=== PATIENT | female | born 1960 | race Caucasian/White ===

== ENCOUNTER 2021-04-15 00:43 | Inpatient (IN) | payer MEDICAID, SELFPAY ==
[2021-04-15] VITALS (12 sets, daily range): BP systolic 109–136; BP diastolic 74–85; PULSE 72–98; RESP 16–30; TEMP 36.6–36.9; O2SAT 80–97; BMI 25.5; BMI 25.2
--- NOTE | 2021-04-15 01:26 | RAD_ITS ---
STUDY: X-RAY CHEST REASON FOR EXAM: Female, 60 years old. sob TECHNIQUE: Single AP portable view of the chest. COMPARISON: None. FINDINGS: Ill-defined subpleural groundglass opacities are seen more prominent in the lung bases , may represent atypical pneumonia or viral pneumonia (COVID-19 ?). There is no demonstrated pleural abnormality. Normal size heart. Normal mediastinum and alison. Normal visualized pulmonary arteries. Normal visualized aortic arch and descending thoracic aorta. Normal visualized thoracic spine. Normal visualized ribs, clavicles, and shoulders. There is no demonstrated abnormality of the visualized soft tissue structures of the upper abdomen. RAD/Chest 1 View (Portable) IMPRESSION: Ill-defined subpleural groundglass opacities are seen more prominent in the lung bases , may represent atypical pneumonia or viral pneumonia (COVID-19 ?). Electronically Signed: Carolee Shaw MD at 2:38 EST Tel , Service support ,
--- NOTE | 2021-04-15 01:27 | EKG12_ITS ---
Test Reason : SOB Blood Pressure : / mmHG Vent. Rate : 090 BPM Atrial Rate : 090 BPM P-R Int : 122 ms QRS Dur : 076 ms QT Int : 354 ms P-R-T Axes : 028 -31 008 degrees QTc Int : 433 ms Normal sinus rhythm Left axis deviation Inferior infarct , age undetermined Anterolateral infarct , age undetermined Abnormal ECG Confirmed by STAR NGUYỄN, EMILIANO ([id number]), editor managing newspaper GREGORIA LAMBERT ([id number]) on 04/15/2021 11:44:45 AM Referred By: HANNAH Confirmed By:EMILIANO GRAVES MD
--- NOTE | 2021-04-15 01:28 | EDS_ITS ---
HPI History of Present Illness Chief Complaint: Shortness of Breath Informant: patient Onset/Context/Timing Onset: Weeks (2) Timing: Intermittent Quality: Positive for Dyspnea on exertion Current Severity: Moderate Maximum Severity: Severe Worsened by: Exertion and Coughing Relieved by: Oxygen Associated Symptoms cough Chest Pain: Positive for Continuous, Aching (substernal w/o radiation) and Pleuritic Narrative Narrative: Patient states she has been having shortness of breath off and on for 2 weeks, was much worse tonight, even at rest when trying to just get out of a chair she was unable, causing her to have incontinent stool that was diarrhea although she has not been having diarrhea prior. Daughter states she was feeling dizzy yesterday to and having some headaches off and on, and wonders if these may be side effects of the Metformin she recently increased the dose. Patient does not have a history of known heart or lung disease, she was 80% on room air placed on oxygen by EMS which is helping some now and she no longer is in respiratory distress. When asked how long she has been coughing, they state she has had a cough off and on for maybe 1 or 2 weeks she is not exactly sure but it was much worse today. Denies any fevers or chills or myalgias. Unvaccinated against Covid, no known sick contacts. [facility] Medical History Diabetes HTN (hypertension) Home Medications albuterol sulfate 1 puff INHALATION Q6H PRN 04/15/21 [History Last Taken Unknown] cholecalciferol (vitamin D3) [Vitamin D3] 25 mcg PO DAILY 04/15/21 [History Last Taken Unknown] dulaglutide [Trulicity] 3 mg SUBCUT WE 04/15/21 [History Last Taken Unknown] fluticasone propionate 1 spray INTRANASAL DAILY 04/15/21 [History Last Taken Unknown] insulin degludec [Tresiba U-100 Insulin] 54 unit SUBCUT DAILY 04/15/21 [History Last Taken Unknown] loratadine 10 mg PO DAILY 04/15/21 [History Last Taken Unknown] losartan 25 mg PO DAILY 04/15/21 [History Last Taken Unknown] metformin 1,000 mg PO BID 04/15/21 [History Last Taken Unknown] mometasone-formoterol [Dulera] 2 puff INHALATION BID 04/15/21 [History Last Taken Unknown] montelukast 10 mg PO QHS 04/15/21 [History Last Taken Unknown] simvastatin 20 mg PO QHS 04/15/21 [History Last Taken Unknown] Allergy/AdvReac Type Severity Reaction Status Date / Time No Known Allergies Allergy Verified 04/15/21 00:45 Surgical History (Updated 04/15/21 @ 00:59 by Shavon España) History of hysterectomy Social History Smoking Status: Former smoker ROS ROS ED Constitutional Constitutional ED: Reports malaise; Denies chills or fever(s) Eyes Eyes: Denies change in vision or diplopia ENT ENT ED: Denies rhinorrhea or sore throat Cardiovascular Cardiovascular: Reports chest pain; Denies palpitations or pedal edema Respiratory/Chest Respiratory/Chest: Reports cough, dyspnea and dyspnea on exertion Gastrointestinal Gastrointestinal: Reports diarrhea; Denies abdominal pain, nausea or vomiting Genitourinary Genitourinary ED: Denies dysuria or hematuria Musculoskeletal Musculoskeletal: Denies back pain or neck pain Integumentary Denies abscess or rash Neurologic Neurologic: Reports headache(s); Denies paresthesias or weakness Psychiatric Psychiatric: Denies anxiety or suicidal thoughts EXAM Physical Exam Const Vital Signs: 04/15/21 00:48 04/15/21 00:51 04/15/21 00:52 Temperature 98.3 F Temperature Source Oral Pulse Rate 88 Respiratory Rate 24 H Respiratory Effort Short of Breath Labored Respiratory Pattern Tachypnea Blood Pressure 112/80 Blood Pressure Mean 90 Pulse Ox 80 93 Oxygen Delivery Method Room Air Nasal Cannula Oxygen Flow Rate (L/min) 4 04/15/21 01:51 04/15/21 03:27 04/15/21 03:42 Temperature 98.3 F Temperature Source Oral Pulse Rate 88 89 Respiratory Rate 30 H 24 H 24 H Respiratory Effort Respiratory Pattern Blood Pressure 109/80 Blood Pressure Mean 89 Pulse Ox 94 88 81 Oxygen Delivery Method Nasal Cannula Nasal Cannula Nasal Cannula Oxygen Flow Rate (L/min) 4 2 2 Positive well nourished and well developed General Appearance ED: well developed and NAD HEENT Reports moist mucous membranes normocephalic and atraumatic Eyes PERRL and EOMs intact bilaterally Neck full ROM, no lymphadenopathy, supple, no meningeal signs and no JVD Resp no retractions, no use of accessory muscles and clear to auscultation bilaterally Resp Narrative: Tachypneic with clear lungs Cardio regular rate, regular rhythm and no murmurs GI non-tender and non-distended Auscultation: normoactive bowel sounds Palpation: soft Back/Spine no CVA tenderness General Back: other FROM Extremity normal to inspection General Extremety ED: Negative for edema, pulses abnormal or tenderness General Extremity: Negative for edema or pulses abnormal Neuro oriented x3, CN's II-XII intact bilaterally and no sensory deficits noted Sensorium / Orientation: awake and alert Motor Exam: strength 5/5 throughout Skin no rashes or lesions noted and no wounds MDM MDM MDM Narrative Medical decision making narrative: Patient's rapid Covid test returns positive. Her chest x-ray shows evidence of Covid pneumonitis, likely responsible at least in part for her hypoxemia. Her D-dimer returned elevated so she underwent CT angiography of the chest to rule out pulmonary embolus, this was negative for PE. She did have some dehydration/prerenal azotemia, was given some IV fluids in addition to Decadron 6 mg. Monoclonal antibody infusion since she presents for diagnosis when she is hypoxemic, and has had symptoms beyond 10 days anyhow. Here she required 4 L nasal cannula to keep her oxygen saturations in the 90s. She consistently was 90-92% while resting on 4 L. I had nurses attempt to ambulate her, she basically was able to get up to the side of the bed before even exerting herself on her feet, and she dropped her oxygen saturations to 85% before requiring more oxygen in order to bring her back up into the 90s. Given this, she is requiring too much oxygen to be discharged home and will need to be admitted for further care. Lab Data Attestation: I reviewed the patient's lab results. Labs: Laboratory Results - last 24 hr 04/15/21 04/15/21 04/15/21 01:35 01:35 01:35 WBC 5.4 RBC 4.88 Hgb 13.0 Hct 39.5 MCV 80.9 L MCH 26.6 L MCHC 32.9 RDW Std Deviation 39.0 RDW Coeff of Carlos Enrique 13.2 Plt Count 159 MPV 10.8 Immature Gran % (Auto) 1.300 H Neut % (Auto) 85.1 H Lymph % (Auto) 10.2 L [place] % (Auto) 3.0 Eos % (Auto) 0.0 Baso % (Auto) 0.4 Absolute Neuts (auto) 4.6 Absolute Lymphs (auto) 0.55 L Nucleated RBC % 0 Differential Comment SCANNED D-Dimer Quant (PE/DVT) 1.71 H* Sodium 134 L Potassium 4.0 Chloride 97 L Carbon Dioxide 20.0 L Anion Gap 17 H BUN 40 H Creatinine 1.76 H Estim Creat Clear Calc 27.77 Est GFR (MDRD) Af Amer 38 L Est GFR (MDRD) Non-Af 31 L BUN/Creatinine Ratio 22.7 H Glucose 436 H Lactic Acid Calcium 8.6 Troponin I High Sens 14 B-Natriuretic Peptide 04/15/21 04/15/21 01:35 01:35 WBC RBC Hgb Hct MCV MCH MCHC RDW Std Deviation RDW Coeff of Carlos Enrique Plt Count MPV Immature Gran % (Auto) Neut % (Auto) Lymph % (Auto) [place] % (Auto) Eos % (Auto) Baso % (Auto) Absolute Neuts (auto) Absolute Lymphs (auto) Nucleated RBC % Differential Comment D-Dimer Quant (PE/DVT) Sodium Potassium Chloride Carbon Dioxide Anion Gap BUN Creatinine Estim Creat Clear Calc Est GFR (MDRD) Af Amer Est GFR (MDRD) Non-Af BUN/Creatinine Ratio Glucose Lactic Acid 2.2 H* Calcium Troponin I High Sens B-Natriuretic Peptide 34.9 Radiography Diagnostic Testing: Clinical Impression(s) from Imaging Studies Chest X-Ray 04/15/21 01:26 IMPRESSION: Ill-defined subpleural groundglass opacities are seen more prominent in the lung bases , may represent atypical pneumonia or viral pneumonia (COVID-19 ?). Electronically Signed: Carolee Shaw MD at 2:38 EST Tel , Service support , Chest CTA 04/15/21 02:11 IMPRESSION: No demonstrated pulmonary embolism or arterial dissection. Ill-defined subpleural groundglass opacities are seen more prominent in the lung bases , are consistent with (COVID-19 pneumonia). Electronically Signed: Carolee Shaw MD at 3:27 EST Tel , Service support , EKG Initial EKG: Attestation: I personally reviewed and interpreted this EKG as follows: Interpretation: Sinus Rhythm and No Acute Injury Pattern Comments: Leftward axis Prior: Unchanged Discharge Plan Dx/Rx/DC Orders Clinical Impression: Pneumonia due to COVID-19 virus, Hypoxemia, Renal insufficiency Disposition Disposition: Acute Care Hospital [facility]
[2021-04-15 01:54] LABS: Absolute Lymphocyte Count 0.55 X10^3/uL (0.83-4.51); Absolute Neutrophil Count 4.6 X10^3/uL (2.0-7.7); Basophil# 0.02 X10^3/uL; Basophil% 0.4 % (0-1); Hematocrit 39.5 % (37-47); Lymphocyte # 0.55 X10^3/ul (0.83-4.51); Lymphocyte % 10.2 % (19-41); Mean Corp Hgb Conc 32.9 g/dL (32-36); Mean Corpuscular Hgb 26.6 pg (27.0-32.0); Mean Corpuscular Volume 80.9 fL (81-99); Mean Platelet Vol. 10.8 fl (6.2-12.0); Monocyte# 0.16 X10^3/uL; NRBC Flagged by Analyzer 0 % (0-5); Neutrophil % 85.1 % (47-70); POSITIVE DIFFERENTIAL YES; POSITIVE MORPHOLOGY YES; Platelet Count 159 K/mm3 (150-450); RBC Distribution Width CV 13.2 % (11.6-14.6); Red Blood Count 4.88 M/mm3 (4.2-5.4); White Blood Count 5.4 K/mm3 (4.4-11.0)
[2021-04-15] MEDS: 0.9% Normal Saline 1,000 ML 150 ML IV (01:54)
[2021-04-15 02:09] LABS: D-Dimer Quantitative (DVT/PE) 1.71 FEU/ug/m (0.27-0.49)
--- NOTE | 2021-04-15 02:11 | CT_ITS ---
STUDY: CTA CHEST REASON FOR EXAM: Female, 60 years old. sob, covid, elevated d-dimer RADIATION DOSAGE (If Supplied By Facility): CTDIvol = ( 11.74 ) mGy, DLP = ( 412.25 ) mGycm TECHNIQUE: The examination was performed with the intravenous administration of IV 75mL Isovue-370. Post-processing of the angiographic images was performed, with multiplanar reformation and 3D reconstruction. Individualized dose optimization techniques were used for this CT. COMPARISON: None. FINDINGS: Normal enhancement of the main pulmonary artery and right and left pulmonary arteries. Normal enhancement of the bilateral peripheral pulmonary arteries. There is no demonstrated pulmonary embolism. Normal thoracic aorta and visualized great vessels. There is no demonstrated aortic dissection. Normal heart and pericardium. Normal mediastinum. Normal hilar regions. Normal visualized trachea and bronchi. The lungs are well expanded. Ill-defined subpleural groundglass opacities are seen more prominent in the lung bases , are consistent with (COVID-19 pneumonia). Normal pleura. Normal chest wall structures. Normal osseous structures. Normal visualized upper abdomen. CT/CTA Chest W/WO Contrast IMPRESSION: No demonstrated pulmonary embolism or arterial dissection. Ill-defined subpleural groundglass opacities are seen more prominent in the lung bases , are consistent with (COVID-19 pneumonia). Electronically Signed: Carolee Shaw MD at 3:27 EST Tel , Service support ,
[2021-04-15 02:13] LABS: Anion Gap 17 (5-15); BUN 40 mg/dL (7-18); BUN/Creat Ratio 22.7 RATIO (10-20); Calcium,Total 8.6 mg/dL (8.5-10.1); Chloride 97 mmol/L (98-107); Creatinine, Serum 1.76 mg/dL (0.55-1.02); EST Glomerular Filtration Rate 31 mL/min (>60); Est Glom Filt Rate - Afr Amer 38 mL/min (>60); Estimated Creatinine Clearance 27.77 ml/min; Glucose 436 mg/dL (74-106); Sodium Level 134 mmol/L (136-145); Troponin-I HS 14 pg/mL (3.0-54.0)
[2021-04-15] MEDS: dexAMETHasone 10 MG/ML Vial 6 MG IV (02:23)
[2021-04-15 02:27] LABS: Differential Indicated SCAN CRITERIA MET
[2021-04-15 02:28] LABS: Differential Comment SCANNED
[2021-04-15 02:35] LABS: Lactic Acid 2.2 mmol/L (0.4-1.9)
[2021-04-15 02:41] LABS: BNP,B-Type NATRIURETIC PEPTIDE 34.9 pg/mL (0-100)
--- NOTE | 2021-04-15 04:41 | HP.PCM.HOS_ITS ---
HPI - General General Date of Admission: 04/15/21 HPI Narrative JUSTIN MILLER, is a 60 F with a significant history of diabetes mellitus and hypertension who presents to emergency department with 1 week history of progressively worsening shortness of breath. Reportedly family tried to get patient's of the bed and she had incontinence of stool. Associated with symptoms is a dry cough. Patient tested positive for COVID-19 virus at the ED. [facility] Medical History Diabetes HTN (hypertension) Home Medications albuterol sulfate 1 puff INHALATION Q6H PRN 04/15/21 [History Last Taken Unknown] cholecalciferol (vitamin D3) [Vitamin D3] 25 mcg PO DAILY 04/15/21 [History Last Taken Unknown] dulaglutide [Trulicity] 3 mg SUBCUT WE 04/15/21 [History Last Taken Unknown] fluticasone propionate 1 spray INTRANASAL DAILY 04/15/21 [History Last Taken Unknown] insulin degludec [Tresiba U-100 Insulin] 54 unit SUBCUT DAILY 04/15/21 [History Last Taken Unknown] loratadine 10 mg PO DAILY 04/15/21 [History Last Taken Unknown] losartan 25 mg PO DAILY 04/15/21 [History Last Taken Unknown] metformin 1,000 mg PO BID 04/15/21 [History Last Taken Unknown] mometasone-formoterol [Dulera] 2 puff INHALATION BID 04/15/21 [History Last Taken Unknown] montelukast 10 mg PO QHS 04/15/21 [History Last Taken Unknown] simvastatin 20 mg PO QHS 04/15/21 [History Last Taken Unknown] Allergy/AdvReac Type Severity Reaction Status Date / Time No Known Allergies Allergy Verified 04/15/21 00:45 Family History Other Cancer Surgical History History of hysterectomy Social History Smoking Status: Former smoker ROS ROS Narrative Constitutional: Reports fatigue. Denies fever, chills, anorexia and change in weight Eyes: Denies blurry vision, change in eye color, change in vision, discharge from eye(s), double vision, erythema, eye pain, loss of vision or other HEENT: Denies abnormal hearing, dysphagia, ear pain, epistaxis, headache(s), hearing loss, nasal congestion, nasal discharge, post nasal drip, sinus pressure, sore throat or other Cardiovascular: Denies chest pain or palpitations. Denies dyspnea on exertion, orthopnea and paroxysmal nocturnal dyspnea Respiratory/Chest: Reports shortness of breath with dry cough. Gastrointestinal: Reports loose stools. Denies abdominal pain, coffee ground emesis, constipation, dyspepsia, hematemesis, hematochezia, melena, nausea, vomiting or other Genitourinary: Denies burning urination, difficulty urinating, dysuria, hematuria, nocturia, urinary frequency, urinary hesitancy, urinary incontinence, urinary urgency or other Musculoskeletal: Denies arthralgias, back pain, joint pain, joint stiffness, joint swelling, myalgias, neck pain or other Neurologic: Denies abnormal gait, abnormal speech, confusion, disequilibrium, dizziness, focal weakness, headache(s), numbness, paresthesias, seizure-like activity, seizures, syncope, tingling, tremor(s) or other Psychiatric: Denies anxiety, depression, homicidal ideation, suicidal ideation or other Endocrinology: Denies change in body appearance, cold intolerance, excessive sweating, heat intolerance, polydipsia, polyuria or other Hematologic/Lymphatic: Denies anemia, easy bleeding, easy bruising, lymphadenopathy or other Integumentary: Denies rashes Allergic/Immunologic: Denies rhinitis, hives, eczema, asthma or other Vital Signs Vital Signs Vital Signs: 04/15/21 00:48 04/15/21 00:51 04/15/21 00:52 Temperature 98.3 F Temperature Source Oral Pulse Rate 88 Respiratory Rate 24 H Respiratory Effort Short of Breath Labored Respiratory Pattern Tachypnea Blood Pressure 112/80 Blood Pressure Mean 90 Pulse Ox 80 93 Oxygen Delivery Method Room Air Nasal Cannula Oxygen Flow Rate (L/min) 4 04/15/21 01:51 04/15/21 03:27 04/15/21 03:42 Temperature 98.3 F Temperature Source Oral Pulse Rate 88 89 Respiratory Rate 30 H 24 H 24 H Respiratory Effort Respiratory Pattern Blood Pressure 109/80 Blood Pressure Mean 89 Pulse Ox 94 88 81 Oxygen Delivery Method Nasal Cannula Nasal Cannula Nasal Cannula Oxygen Flow Rate (L/min) 4 2 2 Weight Weight: 65.4 kg Body Mass Index (BMI) 25.5 Physical Exam Narrative Physical exam: General: Well-nourished, well-developed. Head: Normocephalic, atraumatic, no tenderness Eyes: PERRLA, EOMI ENT, no trauma, moist mucous membranes, no rhinorrhea Neck: Nontender, full range of motion, no spinal tenderness, deformities, step- off CVS: Regular rate and rhythm. S1-S2 present. No murmur, gallop or rub. Respiratory : Diminished lung sounds, chest wall nontender, no wheezing Abdomen: Soft, nontender, nondistended, normal bowel sounds, no masses : Deferred Back: Nontender, no CVA tenderness, no midline spinal tenderness, deformities, step-offs Extremities: Nontender full range of motion, no trauma Skin: Normal color, no trauma, abrasions Neuro: Alert, oriented, cranial nerves II through XII grossly intact. Psychiatry: Normal mood. Normal affect. Not depressed. Not anxious. Results Lab / Micro Data Result Diagrams: 04/15/21 01:35 04/15/21 01:35 Labs: Laboratory Results - last 24 hr 04/15/21 01:35: WBC 5.4, RBC 4.88, Hgb 13.0, Hct 39.5, MCV 80.9 L, MCH 26.6 L, MCHC 32.9, RDW Std Deviation 39.0, RDW Coeff of Carlos Enrique 13.2, Plt Count 159, MPV 10.8, Immature Gran % (Auto) 1.300 H, Neut % (Auto) 85.1 H, Lymph % (Auto) 10.2 L, [place] % (Auto) 3.0, Eos % (Auto) 0.0, Baso % (Auto) 0.4, Absolute Neuts (auto) 4.6, Absolute Lymphs (auto) 0.55 L, Nucleated RBC % 0, Differential Comment SCANNED 04/15/21 01:35: D-Dimer Quant (PE/DVT) 1.71 H* 04/15/21 01:35: Sodium 134 L, Potassium 4.0, Chloride 97 L, Carbon Dioxide 20.0 L, Anion Gap 17 H, BUN 40 H, Creatinine 1.76 H, Estim Creat Clear Calc 27.77, Est GFR (MDRD) Af Amer 38 L, Est GFR (MDRD) Non-Af 31 L, BUN/Creatinine Ratio 22.7 H, Glucose 436 H, Calcium 8.6, Troponin I High Sens 14 04/15/21 01:35: B-Natriuretic Peptide 34.9 04/15/21 01:35: Lactic Acid 2.2 H* Micro: Microbiology 04/15/21 01:45 Mucosa - Nose Influenza Types A,B Direct FA (ERIK) - Final 04/15/21 01:45 Nasal Secretion SARS-CoV-2 Antigen (Rapid) - Final SARS-CoV-2 (COVID 19) Radiology Impression Chest X-Ray 04/15/21 01:26 IMPRESSION: Ill-defined subpleural groundglass opacities are seen more prominent in the lung bases , may represent atypical pneumonia or viral pneumonia (COVID-19 ?). Electronically Signed: Carolee Shaw MD at 2:38 EST Tel , Service support , Chest CTA 04/15/21 02:11 IMPRESSION: No demonstrated pulmonary embolism or arterial dissection. Ill-defined subpleural groundglass opacities are seen more prominent in the lung bases , are consistent with (COVID-19 pneumonia). Electronically Signed: Carolee Shaw MD at 3:27 EST Tel , Service support , Assessment & Plan Assessment/Plan (1) Pneumonia due to COVID-19 virus: PLAN: Acute hypoxemic respiratory failure secondary to SARS- COV 2 Patient required Venturi mask at the emergency department. Rapid Covid antigen was positive at the emergency department. Chest CTA and chest x-ray was independently interpreted and I agree radiologist interpretation above. Procalcitonin was ordered. D-dimer is elevated. Decadron ordered. Creatinine clearance is below 30 and patient is clinically dose of remdesivir. Tylenol for fever Mucinex ordered Pneumonia secondary to COVID-19 Diabetes mellitus Review of ED labs showed hyperglycemia. Continue home basal. Hold Metformin. Accu-Chek correction scale insulin ordered. Lactic acidosis Review of emergency department labs showed elevated lactic acid. Like secondary to Metformin and hypoxia. Treat COVID-19 as above. Hold Metformin. Treat lactic acid JACKY Creatinine presentation was 1.76. Community records were reviewed. Her creatinine on 04/05/2021 was 1.49; anticoagulant on 04/26/2020 was 1.02. Hold GHULAM receptor nitesh. Gentle IV hydration Trend BMP Hypertension Blood pressure is within goal Ghulam receptor nitesh held secondary to JACKY. Trend blood pressure DVT prophylaxis: Subcutaneous Lovenox ordered. Charges/Coding Visit Charges Inpatient E&M: 58195 Init Hosp L3
[2021-04-15 05:51] LABS: Reflex Lactate? Y
[2021-04-15] MEDS: 0.9% Saline Lock 10 ML Syringe IV (06:48)
[2021-04-15 06:54] LABS: Lactic Acid 1.4 mmol/L (0.4-1.9)
[2021-04-15] MEDS: Insulin Lispro 100 UNIT/ML INSULN.PEN 18 UNIT SC (07:12)
[2021-04-15] MEDS: 0.9% Normal Saline 1,000 ML 75 ML IV (07:13)
[2021-04-15 07:41] LABS: Bedside Glucose 489 mg/dL (70-110)
[2021-04-15 07:41] LABS: Bedside Glucose 484 mg/dL (70-110)
[2021-04-15 08:18] LABS: Procalcitonin 0.93 ng/mL (0.00-0.09)
[2021-04-15] MEDS: Budesonide Respules 0.5 MG/2 ML AMPUL.NEB. INHALATION (09:19)
[2021-04-15] MEDS: Albuterol 2.5 MG/3 ML VIAL.NEB. INHALATION ×2 (09:20→13:12)
[2021-04-15] MEDS: guaiFENesin 1,200 MG Tablet 1200 MG PO ×2 (09:28→21:58)
[2021-04-15] MEDS: Enoxaparin 30 MG/0.3 ML Syringe SC (09:28)
[2021-04-15] MEDS: Loratadine 10 MG Tablet PO (09:28)
[2021-04-15] MEDS: Cholecalciferol (VIT D3) 25 MCG TABLET (1,000 UNITS) PO (09:28)
[2021-04-15 11:40] LABS: Bedside Glucose > 500 mg/dL (70-110)
[2021-04-15] MEDS: Insulin Lispro 100 UNIT/ML INSULN.PEN 15 UNIT SC (11:41)
--- NOTE | 2021-04-15 11:45 | CASEMGMT ---
Addendum entered by Cindy Chamorro 04/15/21 14:58: Pt states family is fine and states no concerns getting resources once home. Hiwot SAMS CM Original Note: LATRELL GIPSON assessment: Initial transition planning/care coordination assessment. LATRELL GIPSON introduced self and role at [facility], pt voices understanding and consents to assessment. Pt speaks in full sentences on 8Lnc. Pt is A/Ox4 and answers questions appropriately. Pt states is not vaccinated and tested COVID + here. Care providers, pharmacy, and demographics verified/updated. Presentation: Pt c/o SOB off and on for last several weeks, worsening. pulse ox 80% on room air per EMS Admitting dx: Acute hypoxemic resp failure, COVID PCP: Chriss Specialists: [facility] Preferred [facility]acy: [facility] Insurance: RUST Prescription Benefit: RUST Living Will/HPOA: Pt does not have LW/HPOA and declines AD info. LNOK: Suni Randhawa, niece Living Arrangements: Pt lives alone in 2nd story apartment with flight of steps in and states has been having difficulty getting upstairs. Pt states normally is independent with ADL's but lately has been struggling. Transportation: Pt's sister or niece drive and pt states no transportation concerns. DME/HHC: Pt states no current DME or need for DME. Pt states no hx of HHC or SNF. Pt states some concern with going home at d/c. Therapy ordered and CM to follow. Pt states is on disability. Pt states does not smoke cigarettes or drink ETOH. Pt states no further concerns/needs. CM to to follow for home oxygen need and any further discharge planning/needs. Advised pt to ask for CM if any further questions/concerns/needs arise, voices understanding. Pt Goal: Home Plan: Home, pending therapy evals, home oxygen testing. Hiwot SAMS CM
--- NOTE | 2021-04-15 12:30 | PCM.PN.HOSP ---
Subjective Subjective Increased oxygen requirements. Objective Data Objective Data Vital Signs: Vital Signs Temp Pulse Resp BP Pulse Ox 36.7 C 90 20 H 116/74 92 04/15/21 09:24 04/15/21 09:24 04/15/21 09:24 04/15/21 09:24 04/15/21 09:24 Oxygen Flow Rate (L/min) 8 Oxygen Delivery Method Nasal Cannula Weight: 64.6 kg Body Mass Index (BMI) 25.2 Intake & Output: Intake and Output for Last 24 Hours 04/13/21 04/14/21 04/15/21 23:59 23:59 23:59 Intake Total 1337.5 / 1337.5 Balance 1337.5 / 1337.5 Lab / Micro Data Result Diagrams: 04/15/21 01:35 04/15/21 01:35 Labs: Laboratory Results - last 24 hr 04/15/21 01:35: WBC 5.4, RBC 4.88, Hgb 13.0, Hct 39.5, MCV 80.9 L, MCH 26.6 L, MCHC 32.9, RDW Std Deviation 39.0, RDW Coeff of Carlos Enrique 13.2, Plt Count 159, MPV 10.8, Immature Gran % (Auto) 1.300 H, Neut % (Auto) 85.1 H, Lymph % (Auto) 10.2 L, [place] % (Auto) 3.0, Eos % (Auto) 0.0, Baso % (Auto) 0.4, Absolute Neuts (auto) 4.6, Absolute Lymphs (auto) 0.55 L, Nucleated RBC % 0, Differential Comment SCANNED 04/15/21 01:35: D-Dimer Quant (PE/DVT) 1.71 H* 04/15/21 01:35: Sodium 134 L, Potassium 4.0, Chloride 97 L, Carbon Dioxide 20.0 L, Anion Gap 17 H, BUN 40 H, Creatinine 1.76 H, Estim Creat Clear Calc 27.77, Est GFR (MDRD) Af Amer 38 L, Est GFR (MDRD) Non-Af 31 L, BUN/Creatinine Ratio 22.7 H, Glucose 436 H, Calcium 8.6, Troponin I High Sens 14 04/15/21 01:35: B-Natriuretic Peptide 34.9 04/15/21 01:35: Lactic Acid 2.2 H* 04/15/21 01:35: Procalcitonin 0.93 H 04/15/21 06:20: Lactic Acid 1.4 04/15/21 06:46: POC Glucose 484 H* 04/15/21 06:47: POC Glucose 489 H* 04/15/21 11:12: POC Glucose > 500 H* Micro: Microbiology 04/15/21 01:45 Mucosa - Nose Influenza Types A,B Direct FA (ERIK) - Final 04/15/21 01:45 Nasal Secretion SARS-CoV-2 Antigen (Rapid) - Final SARS-CoV-2 (COVID 19) Radiography Diagnostic Testing: Radiology Impression Chest X-Ray 04/15/21 01:26 IMPRESSION: Ill-defined subpleural groundglass opacities are seen more prominent in the lung bases , may represent atypical pneumonia or viral pneumonia (COVID-19 ?). Electronically Signed: Carolee Shaw MD at 2:38 EST Tel , Service support , Chest CTA 04/15/21 02:11 IMPRESSION: No demonstrated pulmonary embolism or arterial dissection. Ill-defined subpleural groundglass opacities are seen more prominent in the lung bases , are consistent with (COVID-19 pneumonia). Electronically Signed: Carolee Shaw MD at 3:27 EST Tel , Service support , Physical Exam Const alert Resp Resp Narrative: coarse breath sounds Cardio regular rate, regular rhythm, S1 normal heart sound and S2 normal heart sound GI normal to inspection, nondistended, normoactive bowel sounds, soft to palpation, non-tender and non-distended Extremity normal to inspection Assessment & Plan Assessment/Plan (1) Pneumonia due to COVID-19 virus: (2) Acute respiratory failure with hypoxia: PLAN: 1. Acute hypoxic respiratory failure 2/2 COVID 19 increased oxygen requirements 2. Acute COVID 19 pneumonia unvaccinated on dexamethasone no remdesivir given CKD onset 04/08, isolation until 04/27 3. JACKY v CKD 3b monitor avoid IVF given respiratory failure, will HLIV 4. DM2 uncontrolled metformin held continue prandial insulin increase glargine to BID exacerbated by steroids 5. VTE prophylaxis: LMWH Charges/Coding Procedures Hospitalists Procedures: Other Procedure - See Report (non billable rounding as pt admitted after midnight. )
[2021-04-15 13:15] LABS: Bedside Glucose > 500 mg/dL (70-110)
[2021-04-15 13:50] LABS: Bedside Glucose > 500 mg/dL (70-110)
[2021-04-15 16:35] LABS: Bedside Glucose > 500 mg/dL (70-110)
[2021-04-15] MEDS: Insulin Lispro 100 UNIT/ML INSULN.PEN 20 UNIT SC (17:55)
[2021-04-15] MEDS: Atorvastatin Calcium 10 MG Tablet PO (21:58)
[2021-04-15] MEDS: Montelukast 10 MG Tablet PO (21:58)
[2021-04-15] MEDS: Insulin Lispro 100 UNIT/ML INSULN.PEN SC ×2 (22:22→22:29)
[2021-04-15 22:36] LABS: Bedside Glucose 450 mg/dL (70-110)
[2021-04-16] VITALS (12 sets, daily range): BP systolic 114–124; BP diastolic 70–94; PULSE 66–95; RESP 16–181; TEMP 36.3–37.2; O2SAT 88–97
--- NOTE | 2021-04-16 00:45 | PCS.PANDOC ---
PANDEMIC DOCUMENTATION INITIATED: Date: 12/20/2020 Time: 190
[2021-04-16] MEDS: Insulin Lispro 100 UNIT/ML INSULN.PEN SC ×4 (06:28→21:53)
[2021-04-16 06:35] LABS: Bedside Glucose 336 mg/dL (70-110)
[2021-04-16] MEDS: Budesonide Respules 0.5 MG/2 ML AMPUL.NEB. INHALATION (07:30)
[2021-04-16] MEDS: Albuterol 2.5 MG/3 ML VIAL.NEB. INHALATION ×2 (07:30→13:26)
[2021-04-16 08:12] LABS: ALB/GLOB Ratio 0.5 RATIO (0.9-2.4); AST(SGOT) 48 U/L (15-37); Alanine Aminotransfer ALT/SGPT 39 U/L (13-56); Albumin, Serum 2.4 g/dL (3.2-5.0); Alkaline Phosphatase 97 U/L (45-117); Anion Gap 10 (5-15); BUN 43 mg/dL (7-18); BUN/Creat Ratio 31.9 RATIO (10-20); Calcium,Total 7.9 mg/dL (8.5-10.1); Chloride 107 mmol/L (98-107); Creatinine, Serum 1.35 mg/dL (0.55-1.02); EST Glomerular Filtration Rate 42 mL/min (>60); Est Glom Filt Rate - Afr Amer 51 mL/min (>60); Globulin 4.9 g/dL (2.2-4.2); Glucose 340 mg/dL (74-106); Potassium 3.2 mmol/L (3.5-5.1); Protein, Total 7.3 g/dL (6.4-8.2); Sodium Level 141 mmol/L (136-145)
[2021-04-16] MEDS: dexAMETHasone 4 MG Tablet 6 MG PO (10:43)
[2021-04-16] MEDS: Enoxaparin 30 MG/0.3 ML Syringe SC (10:43)
[2021-04-16] MEDS: guaiFENesin 1,200 MG Tablet 1200 MG PO ×2 (10:43→21:54)
[2021-04-16] MEDS: Cholecalciferol (VIT D3) 25 MCG TABLET (1,000 UNITS) PO (10:43)
[2021-04-16] MEDS: Fluticasone 0.05% 1 SPRAY NASAL.SRY NASAL (10:43)
[2021-04-16] MEDS: Loratadine 10 MG Tablet PO (10:43)
--- NOTE | 2021-04-16 14:16 | PCM.PN.HOSP ---
Subjective Subjective Continues to breath well. Objective Data Objective Data Vital Signs: Vital Signs Temp Pulse Resp BP Pulse Ox 36.6 C 95 16 122/70 H 90 04/16/21 10:37 04/16/21 13:27 04/16/21 13:27 04/16/21 10:37 04/16/21 10:37 Oxygen Flow Rate (L/min) 8 Oxygen Delivery Method High Flow Weight: 64.6 kg Body Mass Index (BMI) 25.2 Intake & Output: Intake and Output for Last 24 Hours 04/14/21 04/15/21 04/16/21 23:59 23:59 23:59 Intake Total 2768.75 / 2768.75 Output Total 200 / 200 Balance 2768.75 / 2768.75 -200 / -200 Lab / Micro Data Result Diagrams: 04/15/21 01:35 04/16/21 06:34 Labs: Laboratory Results - last 24 hr 04/15/21 16:06: POC Glucose > 500 H* 04/15/21 21:46: POC Glucose 450 H 04/16/21 06:26: POC Glucose 336 H 04/16/21 06:34: Sodium 141, Potassium 3.2 L, Chloride 107, Carbon Dioxide 24.0, Anion Gap 10, BUN 43 H, Creatinine 1.35 H, Estim Creat Clear Calc 36.20, Est GFR (MDRD) Af Amer 51 L, Est GFR (MDRD) Non-Af 42 L, BUN/Creatinine Ratio 31.9 H, Glucose 340 H, Calcium 7.9 L, Total Bilirubin 0.30, AST 48 H, ALT 39, Alkaline Phosphatase 97, Total Protein 7.3, Albumin 2.4 L, Globulin 4.9 H, Albumin/Globulin Ratio 0.5 L Micro: Microbiology 04/15/21 01:50 Blood Culture (Wb) #2 - Anticubital Right Blood Culture - Preliminary 04/15/21 01:45 Mucosa - Nose Influenza Types A,B Direct FA (ERIK) - Final 04/15/21 01:45 Nasal Secretion SARS-CoV-2 Antigen (Rapid) - Final SARS-CoV-2 (COVID 19) Physical Exam Const alert and no apparent distress HEENT Head and Scalp: normocephalic Resp normal respiratory effort, no retractions, no use of accessory muscles and clear to auscultation bilaterally Cardio regular rate, regular rhythm, S1 normal heart sound and S2 normal heart sound GI normal to inspection, nondistended, normoactive bowel sounds, soft to palpation, non-tender and non-distended Extremity normal to inspection Assessment & Plan Assessment/Plan (1) Pneumonia due to COVID-19 virus: (2) Acute respiratory failure with hypoxia: PLAN: 1. Acute hypoxic respiratory failure 2/2 COVID 19 stable on 8 l/m wean oxygen as able furosemide challenge 2. Acute COVID 19 pneumonia unvaccinated on dexamethasone start remdesivir as kidney function improved today onset 04/08, isolation until 04/27 3. JACKY monitor avoid IVF given respiratory failure, will HLIV 4. DM2 uncontrolled metformin held continue prandial insulin increase glargine to BID to 55 exacerbated by steroids check a1c 5. VTE prophylaxis: LMWH Charges/Coding Visit Charges Inpatient E&M: 84345 Subs Hosp L2
[2021-04-16 14:57] LABS: Alkaline Phosphatase 100 U/L (45-117)
[2021-04-16 17:01] LABS: Bedside Glucose 431 mg/dL (70-110)
[2021-04-16 17:25] LABS: Bedside Glucose 377 mg/dL (70-110)
[2021-04-16] MEDS: Potassium Chloride Oral Tablet 20 MEQ 60 MEQ PO (17:38)
[2021-04-16] MEDS: Furosemide 40 MG/4 ML Vial IV (17:38)
[2021-04-16] MEDS: Atorvastatin Calcium 10 MG Tablet PO (21:54)
[2021-04-16] MEDS: Montelukast 10 MG Tablet PO (21:54)
[2021-04-16 22:10] LABS: Bedside Glucose 416 mg/dL (70-110)
[2021-04-17] VITALS (27 sets, daily range): BP systolic 101–147; BP diastolic 70–88; PULSE 60–103; RESP 16–31; TEMP 36.6–36.8; O2SAT 86–100
[2021-04-17] MEDS: Acetaminophen 325 MG Tablet 650 MG PO (03:30)
[2021-04-17 06:56] LABS: Bedside Glucose 130 mg/dL (70-110)
[2021-04-17 07:14] LABS: Hematocrit 35.1 % (37-47); Hemoglobin 11.3 g/dL (12.0-15.0); Mean Corp Hgb Conc 32.2 g/dL (32-36); Mean Corpuscular Hgb 26.3 pg (27.0-32.0); Mean Corpuscular Volume 81.6 fL (81-99); Mean Platelet Vol. 10.5 fl (6.2-12.0); Platelet Count 213 K/mm3 (150-450); RBC Distribution Width CV 13.8 % (11.6-14.6); RBC Distribution Width SD 40.9 fl (35.1-43.9); White Blood Count 5.7 K/mm3 (4.4-11.0)
[2021-04-17] MEDS: Albuterol 2.5 MG/3 ML VIAL.NEB. INHALATION ×3 (07:23→19:36)
[2021-04-17] MEDS: Budesonide Respules 0.5 MG/2 ML AMPUL.NEB. INHALATION (07:23)
[2021-04-17 07:41] LABS: ALB/GLOB Ratio 0.5 RATIO (0.9-2.4); AST(SGOT) 52 U/L (15-37); Alanine Aminotransfer ALT/SGPT 40 U/L (13-56); Albumin, Serum 2.4 g/dL (3.2-5.0); Alkaline Phosphatase 104 U/L (45-117); Anion Gap 8 (5-15); BUN 47 mg/dL (7-18); BUN/Creat Ratio 32.6 RATIO (10-20); Calcium,Total 8.4 mg/dL (8.5-10.1); Chloride 109 mmol/L (98-107); Creatinine, Serum 1.44 mg/dL (0.55-1.02); EST Glomerular Filtration Rate 39 mL/min (>60); Est Glom Filt Rate - Afr Amer 48 mL/min (>60); Estimated Creatinine Clearance 33.94 ml/min; Globulin 4.8 g/dL (2.2-4.2); Glucose 149 mg/dL (74-106); Magnesium 1.5 mg/dL (1.6-2.6); Potassium 4.1 mmol/L (3.5-5.1); Protein, Total 7.2 g/dL (6.4-8.2); Sodium Level 143 mmol/L (136-145)
--- NOTE | 2021-04-17 10:03 | PCM.PN.HOSP ---
Subjective Subjective Worse overnight. Placed on Airvo, but still desaturated. Did not tolerate BiPAP, so placed on Airvo and NRB sats went up to 93%. Refuses to try BiPAP again. Objective Data Objective Data Vital Signs: Vital Signs Temp Pulse Resp BP Pulse Ox 36.8 C 77 16 125/72 H 92 04/17/21 04:00 04/17/21 07:23 04/17/21 07:23 04/17/21 04:00 04/17/21 07:23 Oxygen Flow Rate (L/min) 60 Oxygen Delivery Method Airvo Weight: 64.6 kg Body Mass Index (BMI) 25.2 Intake & Output: Intake and Output for Last 24 Hours 04/15/21 04/16/21 04/17/21 23:59 23:59 23:59 Intake Total 2768.75 / 2768.75 1110 / 1110 240 / 240 Output Total 1100 / 1100 275 / 275 Balance 2768.75 / 2768.75 -35 / -35 Lab / Micro Data Result Diagrams: 04/17/21 06:20 04/17/21 06:20 Labs: Laboratory Results - last 24 hr 04/16/21 06:34: Alkaline Phosphatase 100 04/16/21 13:03: POC Glucose 431 H 04/16/21 17:00: POC Glucose 377 H 04/16/21 21:51: POC Glucose 416 H 04/17/21 06:20: WBC 5.7, RBC 4.30, Hgb 11.3 L, Hct 35.1 L, MCV 81.6, MCH 26.3 L, MCHC 32.2, RDW Std Deviation 40.9, RDW Coeff of Carlos Enrique 13.8, Plt Count 213, MPV 10.5 04/17/21 06:20: Sodium 143, Potassium 4.1, Chloride 109 H, Carbon Dioxide 26.0, Anion Gap 8, BUN 47 H, Creatinine 1.44 H, Estim Creat Clear Calc 33.94, Est GFR (MDRD) Af Amer 48 L, Est GFR (MDRD) Non-Af 39 L, BUN/Creatinine Ratio 32.6 H, Glucose 149 H, Calcium 8.4 L, Magnesium 1.5 L, Total Bilirubin 0.40, AST 52 H, ALT 40, Alkaline Phosphatase 104, Total Protein 7.2, Albumin 2.4 L, Globulin 4.8 H, Albumin/Globulin Ratio 0.5 L 04/17/21 06:46: POC Glucose 130 H Micro: Microbiology 04/15/21 01:50 Blood Culture (Wb) #2 - Anticubital Right Bacteria Detection (PCR) - Final Strep not Strep pneumo 04/15/21 01:50 Blood Culture (Wb) #2 - Anticubital Right Blood Culture - Preliminary Alpha Hemolytic Streptococcus 04/15/21 01:45 Mucosa - Nose Influenza Types A,B Direct FA (ERIK) - Final 04/15/21 01:45 Nasal Secretion SARS-CoV-2 Antigen (Rapid) - Final SARS-CoV-2 (COVID 19) Physical Exam Const alert Constitutional Narrative: on Airvo and NRB. disheveled. HEENT head/scalp atraumatic Head and Scalp: normocephalic Resp normal respiratory effort and no retractions Resp Narrative: coarse BS bilaterally. Cardio regular rate, regular rhythm, S1 normal heart sound and S2 normal heart sound GI normal to inspection, nondistended, normoactive bowel sounds, soft to palpation, non-tender and non-distended Neuro Sensorium / Orientation: awake and alert Assessment & Plan Assessment/Plan (1) Pneumonia due to COVID-19 virus: (2) Acute respiratory failure with hypoxia: PLAN: 1. Acute hypoxic respiratory failure 2/2 COVID 19 and Streptococcal pneumonia (not Strep pneumo) worse. Now on Airvo and NRB. Did not tolerate BiPAP. High risk for further decompensation, so will transfer to ICU. Verified full code status. 2. Acute COVID 19 pneumonia unvaccinated on dexamethasone start remdesivir as kidney function improved today onset 04/08, isolation until 04/27 3. Streptococcal pneumonia start CTX pulm toilet. 4. JACKY monitor avoid IVF given respiratory failure, will HLIV 4. DM2 uncontrolled metformin held continue prandial insulin increase glargine to BID to 55 exacerbated by steroids check a1c 5. VTE prophylaxis: LMWH 6. Medical illiteracy Explained BiPAP after respiratory therapist to patient. She did not grasp the contents of the conversation and was easily distracted and not at all invested in the conversation despite the critical nature. Addressed her condition likely due to her unvaccinated status. Charges/Coding Visit Charges Inpatient E&M: 59104 Subs Hosp L3
--- NOTE | 2021-04-17 10:09 | CPS ---
0920 Called to pt's room for saturation 83% on Airvo. Pt was on Airvo at 60 lpm 94%. Bipap was brought to room and was attempted to be place on pt. Pt denied Bipap. Pt was encouraged to allow Bipap mask to be placed on her but continued to refuse. Dr Roblero was informed and at bed side discussing pt's options and trying to make her understand importance of Bipap. Pt continues to refuse. NRB mask at 100% place on pt with Airvo and saturation to 96%. Merari Stone and pt's nurse aware.
[2021-04-17] MEDS: Enoxaparin 30 MG/0.3 ML Syringe SC ×2 (10:56→21:23)
[2021-04-17] MEDS: Cholecalciferol (VIT D3) 25 MCG TABLET (1,000 UNITS) PO (10:57)
[2021-04-17] MEDS: guaiFENesin 1,200 MG Tablet 1200 MG PO (10:57)
[2021-04-17] MEDS: Loratadine 10 MG Tablet PO (10:57)
[2021-04-17] MEDS: dexAMETHasone 4 MG Tablet 6 MG PO (10:58)
--- NOTE | 2021-04-17 11:53 | NURSING ---
report called to ICU-patient aware of transfer Devaughn Hermosillo RN
--- NOTE | 2021-04-17 12:04 | CPS ---
attempted to place pt on Bipap but pt refused
[2021-04-17 13:06] LABS: Bedside Glucose 285 mg/dL (70-110)
[2021-04-17] MEDS: Insulin Lispro 100 UNIT/ML INSULN.PEN SC ×2 (17:03→22:21)
[2021-04-17 21:10] LABS: Bedside Glucose 486 mg/dL (70-110)
[2021-04-17 23:25] LABS: Bedside Glucose 208 mg/dL (70-110)
[2021-04-18] VITALS (36 sets, daily range): BP systolic 103–166; BP diastolic 71–101; PULSE 53–98; RESP 12–36; TEMP 36.2–37.2; O2SAT 88–100
[2021-04-18 05:13] LABS: Absolute Lymphocyte Count 0.68 X10^3/uL (0.83-4.51); Absolute Neutrophil Count 4.7 X10^3/uL (2.0-7.7); Basophil# 0.01 X10^3/uL; Basophil% 0.2 % (0-1); Hematocrit 39.3 % (37-47); Hemoglobin 12.7 g/dL (12.0-15.0); Lymphocyte # 0.68 X10^3/ul (0.83-4.51); Lymphocyte % 11.8 % (19-41); Mean Corp Hgb Conc 32.3 g/dL (32-36); Mean Corpuscular Hgb 26.7 pg (27.0-32.0); Mean Corpuscular Volume 82.6 fL (81-99); Mean Platelet Vol. 10.4 fl (6.2-12.0); Monocyte# 0.15 X10^3/uL; Monocyte% 2.6 % (0-10); NRBC Flagged by Analyzer 0.3 % (0-5); Neutrophil # 4.65 X10^3/uL (2.7-7.7); Neutrophil % 80.9 % (47-70); POSITIVE COUNT YES; RBC Distribution Width CV 13.9 % (11.6-14.6); RBC Distribution Width SD 41.8 fl (35.1-43.9); Red Blood Count 4.76 M/mm3 (4.2-5.4); White Blood Count 5.8 K/mm3 (4.4-11.0)
[2021-04-18 05:45] LABS: ALB/GLOB Ratio 0.5 RATIO (0.9-2.4); AST(SGOT) 57 U/L (15-37); Alanine Aminotransfer ALT/SGPT 50 U/L (13-56); Albumin, Serum 2.6 g/dL (3.2-5.0); Alkaline Phosphatase 124 U/L (45-117); Anion Gap 7 (5-15); BUN 43 mg/dL (7-18); BUN/Creat Ratio 34.7 RATIO (10-20); Calcium,Total 8.5 mg/dL (8.5-10.1); Chloride 107 mmol/L (98-107); Creatinine, Serum 1.24 mg/dL (0.55-1.02); EST Glomerular Filtration Rate 47 mL/min (>60); Est Glom Filt Rate - Afr Amer 57 mL/min (>60); Estimated Creatinine Clearance 39.41 ml/min; Globulin 5.3 g/dL (2.2-4.2); Glucose 273 mg/dL (74-106); Potassium 4.2 mmol/L (3.5-5.1); Protein, Total 7.9 g/dL (6.4-8.2); Sodium Level 139 mmol/L (136-145)
--- NOTE | 2021-04-18 06:55 | CON.PCM.CC_ITS ---
Assessment & Plan Assessment/Plan (1) Acute respiratory failure with hypoxia: (2) Pneumonia due to COVID-19 virus: PLAN: RECOMMENDATIONS: 1. Continue to wean FiO2 for saturations greater 90%. 2. Reattempt BiPAP support. 3. Continue remdesivir and Decadron as ordered. 4. Continue prophylactic Lovenox. 5. Infectious diseases consultation for potential baricitinib. 6. The patient should remain n.p.o. for now. IMPRESSIONS: 1. Acute hypoxemic respiratory failure secondary to COVID-19 pneumonia The patient initially presented to the hospital on April 15 with worsening shortness of breath and cough. She was subsequently found to be positive for COVID-19 pneumonia. CTA showed no evidence for pulmonary embolism. The patient was placed on antimicrobials Decadron and remdesivir. Unfortunately, she continued to decompensate from a respiratory perspective, ultimately requiring transfer to the ICU. Her oxygenation status remains quite tenuous. She does seem reluctant to utilize BiPAP therapy. The patient will be continued on prophylactic Lovenox. I explained to the patient the need to utilize Pap therapy in order to prevent further decompensation and need for invasive mechanical ventilatory support. ID consultation will be obtained for potential baricitinib. The patient should remain n.p.o. for now. 2. Acute kidney injury Improving. Likely prerenal in etiology and related to #1. Hold nephrotoxic medications. Volume status is acceptable. However, I cannot discount the need for diuretics in the future. Continue to monitor urine output for now. No current indication for renal replacement therapy. 3. Diabetes mellitus/hypertension/hyperlipidemia Complicates care, management, recovery and prognosis. Continue Lantus and sliding scale insulin coverage. This note was generated with [employer] dictation software. It may contain incorrect words, spelling, and punctuation that were not noted in checking the note before signing. HPI Consult Data Date of Consult: 04/18/21 HPI Narrative Reason for Consultation: Acute hypoxemic respiratory failure secondary to COVID- 19 pneumonia HPI Narrative: The patient is a 60-year-old female, with a history as outlined below, who presented to the emergency department on April 15 with progressive dyspnea and cough. The patient is unvaccinated against coronavirus. She denied any known sick contact exposure. On presentation to the emergency department, the patient was noted to be afebrile and hemodynamically stable. She was initially documented to be hypoxemic on room air. Initial laboratory evaluation revealed no evidence of a leukocytosis. D-dimer was noted to be 1.7. Chemistry profile was notable for a sodium of 134, chloride of 97, bicarbonate of 20, anion gap of 17 and creatinine of 1.76. Glucose was elevated to 436. Lactate was noted to be 2.2. BNP and troponin were unremarkable. Rapid coronavirus antigen testing was positive. CTA chest showed no evidence for pulmonary embolism, but did demonstrate bilate ral groundglass opacities. She was subsequently placed on antimicrobials, Decadron and remdesivir. Due to further decompensation in her respiratory status and worsening hypoxemia, the patient was transferred to the medical intensive care unit on April 17. She is currently being maintained on Airvo heated high flow with an FiO2 requirement of 93% and flow rate of 60 L/min. [facility] Medical History Diabetes HTN (hypertension) Home Medications albuterol sulfate 1 puff INHALATION Q6H PRN 04/15/21 [History Last Taken Unknown] cholecalciferol (vitamin D3) [Vitamin D3] 25 mcg PO DAILY 04/15/21 [History Last Taken Unknown] dulaglutide [Trulicity] 3 mg SUBCUT WE 04/15/21 [History Last Taken Unknown] fluticasone propionate 1 spray INTRANASAL DAILY 04/15/21 [History Last Taken Unknown] insulin degludec [Tresiba U-100 Insulin] 54 unit SUBCUT DAILY 04/15/21 [History Last Taken Unknown] loratadine 10 mg PO DAILY 04/15/21 [History Last Taken Unknown] losartan 25 mg PO DAILY 04/15/21 [History Last Taken Unknown] metformin 1,000 mg PO BID 04/15/21 [History Last Taken Unknown] mometasone-formoterol [Dulera] 2 puff INHALATION BID 04/15/21 [History Last Taken Unknown] montelukast 10 mg PO QHS 04/15/21 [History Last Taken Unknown] simvastatin 20 mg PO QHS 04/15/21 [History Last Taken Unknown] Allergy/AdvReac Type Severity Reaction Status Date / Time No Known Allergies Allergy Verified 04/15/21 00:45 Family History Other Cancer Surgical History History of hysterectomy Social History Smoking Status: Former smoker ROS Constitutional Constitutional: Reports fatigue and malaise Eyes Eyes: Denies blurry vision or change in vision ENT HEENT: Reports headache(s); Denies dizziness, nasal congestion or nasal discharge Cardiovascular Cardiovascular: Reports dyspnea; Denies chest pain or dizziness Respiratory/Chest Respiratory/Chest: Reports cough and dyspnea Gastrointestinal Gastrointestinal: Denies abdominal pain, diarrhea, nausea or vomiting Genitourinary Genitourinary: Denies difficulty urinating Musculoskeletal Musculoskeletal: Denies arthralgias Integumentary Integumentary: Denies lesions, rash or skin ulcer Neurologic Neurologic: Denies abnormal gait or abnormal speech Psychiatric Psychiatric: Denies anxiety or depression Endocrine Endocrinology: Reports fatigue Hematologic/Lymphatic Hematologic/Lymphatic: Denies easy bleeding or easy bruising Physical Exam Const alert Constitutional Narrative: Currently on a combination of high flow and nonrebreather. General Appearance: cooperative and ill appearing HEENT normocephalic and head/scalp atraumatic Eyes PERRL, EOMs intact bilaterally and conjunctivae normal Neck supple General: trachea midline Chest inspection of chest normal Resp Effort and Inspection: tachypneic Auscultation: diminished lung sounds Cardio regular rate and regular rhythm GI normal to inspection, nondistended, normoactive bowel sounds Extremity no clubbing, cyanosis or edema Skin no rashes or lesions noted Neuro no focal motor deficits Psych Mood & Affect: flat affect Lab / Micro Data Result Diagrams: 04/18/21 04:45 04/18/21 04:45 Labs: Laboratory Results - last 24 hr 04/17/21 06:20: WBC 5.7, RBC 4.30, Hgb 11.3 L, Hct 35.1 L, MCV 81.6, MCH 26.3 L, MCHC 32.2, RDW Std Deviation 40.9, RDW Coeff of Carlos Enrique 13.8, Plt Count 213, MPV 10.5 04/17/21 06:20: Sodium 143, Potassium 4.1, Chloride 109 H, Carbon Dioxide 26.0, Anion Gap 8, BUN 47 H, Creatinine 1.44 H, Estim Creat Clear Calc 33.94, Est GFR (MDRD) Af Amer 48 L, Est GFR (MDRD) Non-Af 39 L, BUN/Creatinine Ratio 32.6 H, Glucose 149 H, Calcium 8.4 L, Magnesium 1.5 L, Total Bilirubin 0.40, AST 52 H, ALT 40, Alkaline Phosphatase 104, Total Protein 7.2, Albumin 2.4 L, Globulin 4.8 H, Albumin/Globulin Ratio 0.5 L 04/17/21 06:20: Hemoglobin A1c 13.0 H 04/17/21 06:46: POC Glucose 130 H 04/17/21 11:06: POC Glucose 285 H 04/17/21 17:00: POC Glucose 208 H 04/17/21 21:03: POC Glucose 486 H* 04/18/21 04:45: Sodium 139, Potassium 4.2, Chloride 107, Carbon Dioxide 25.0, Anion Gap 7, BUN 43 H, Creatinine 1.24 H, Estim Creat Clear Calc 39.41, Est GFR (MDRD) Af Amer 57 L, Est GFR (MDRD) Non-Af 47 L, BUN/Creatinine Ratio 34.7 H, Glucose 273 H, Calcium 8.5, Total Bilirubin 0.30, AST 57 H, ALT 50, Alkaline Phosphatase 124 H, Total Protein 7.9, Albumin 2.6 L, Globulin 5.3 H, Albumin/Globulin Ratio 0.5 L Micro: Microbiology 04/15/21 01:35 Blood Culture (Wb) - Anticubital Left Blood Culture - Preliminary No growth in 48 hours. 04/15/21 01:50 Blood Culture (Wb) #2 - Anticubital Right Bacteria Detection (PCR) - Final Strep not Strep pneumo 04/15/21 01:50 Blood Culture (Wb) #2 - Anticubital Right Blood Culture - Preliminary Streptococcus mitis/ oralis Charges/Coding Visit Charges Inpatient E&M: 06659 Init Hosp L3
[2021-04-18] MEDS: Albuterol 2.5 MG/3 ML VIAL.NEB. INHALATION ×3 (07:03→19:17)
[2021-04-18 07:17] LABS: Differential Indicated SCAN CRITERIA MET
--- NOTE | 2021-04-18 07:28 | PCM.PN.HOSP ---
Subjective Subjective Patient is a 60-year-old lady unvaccinated against COVID-19 pneumonia presented with progressive shortness of breath. An assessment of acute hypoxic respiratory failure secondary to COVID-19 made. Patient was initially managed on a regular nursing floor transfer to the intensive care unit due to rapid deterioration in her clinical condition Objective Data Objective Data Vital Signs: Vital Signs Temp Pulse Resp BP Pulse Ox 98.5 F 70 24 H 136/101 H 97 04/18/21 04:00 04/18/21 07:04 04/18/21 07:04 04/18/21 07:00 04/18/21 07:04 Oxygen Flow Rate (L/min) 60 Oxygen Delivery Method Non-Rebreather @ 15L/min Weight: 65.3 kg Body Mass Index (BMI) 25.2 Intake & Output: Intake and Output for Last 24 Hours 04/16/21 04/17/21 04/18/21 23:59 23:59 23:59 Intake Total 1110 / 1110 1020 / 1265 245 / 245 Output Total 1100 / 1100 775 / 1275 700 / 700 Balance 245 / -10 -455 / -455 Lab / Micro Data Result Diagrams: 04/18/21 04:45 04/18/21 04:45 Labs: Laboratory Results - last 24 hr 04/17/21 06:20: Sodium 143, Potassium 4.1, Chloride 109 H, Carbon Dioxide 26.0, Anion Gap 8, BUN 47 H, Creatinine 1.44 H, Estim Creat Clear Calc 33.94, Est GFR (MDRD) Af Amer 48 L, Est GFR (MDRD) Non-Af 39 L, BUN/Creatinine Ratio 32.6 H, Glucose 149 H, Calcium 8.4 L, Magnesium 1.5 L, Total Bilirubin 0.40, AST 52 H, ALT 40, Alkaline Phosphatase 104, Total Protein 7.2, Albumin 2.4 L, Globulin 4.8 H, Albumin/Globulin Ratio 0.5 L 04/17/21 06:20: Hemoglobin A1c 13.0 H 04/17/21 11:06: POC Glucose 285 H 04/17/21 17:00: POC Glucose 208 H 04/17/21 21:03: POC Glucose 486 H* 04/18/21 04:45: WBC 5.8, RBC 4.76, Hgb 12.7, Hct 39.3, MCV 82.6, MCH 26.7 L, MCHC 32.3, RDW Std Deviation 41.8, RDW Coeff of Carlos Enrique 13.9, Plt Count 132 L, MPV 10.4, Immature Gran % (Auto) 4.500 H, Neut % (Auto) 80.9 H, Lymph % (Auto) 11.8 L, [place] % (Auto) 2.6, Eos % (Auto) 0.0, Baso % (Auto) 0.2, Absolute Neuts (auto) 4.7, Absolute Lymphs (auto) 0.68 L, Nucleated RBC % 0.3 04/18/21 04:45: Sodium 139, Potassium 4.2, Chloride 107, Carbon Dioxide 25.0, Anion Gap 7, BUN 43 H, Creatinine 1.24 H, Estim Creat Clear Calc 39.41, Est GFR (MDRD) Af Amer 57 L, Est GFR (MDRD) Non-Af 47 L, BUN/Creatinine Ratio 34.7 H, Glucose 273 H, Calcium 8.5, Total Bilirubin 0.30, AST 57 H, ALT 50, Alkaline Phosphatase 124 H, Total Protein 7.9, Albumin 2.6 L, Globulin 5.3 H, Albumin/Globulin Ratio 0.5 L Micro: Microbiology 04/15/21 01:35 Blood Culture (Wb) - Anticubital Left Blood Culture - Preliminary No growth in 48 hours. 04/15/21 01:50 Blood Culture (Wb) #2 - Anticubital Right Bacteria Detection (PCR) - Final Strep not Strep pneumo 04/15/21 01:50 Blood Culture (Wb) #2 - Anticubital Right Blood Culture - Preliminary Streptococcus mitis/ oralis 04/15/21 01:45 Mucosa - Nose Influenza Types A,B Direct FA (ERIK) - Final 04/15/21 01:45 Nasal Secretion SARS-CoV-2 Antigen (Rapid) - Final SARS-CoV-2 (COVID 19) Physical Exam Narrative GENERAL: cooperative HEENT: Atraumatic; EYES; Anicteric, Normal Conjunctiva NECK; supple, normal thyroid, RESPIRATORY: Diminished to auscultation CARDIOVASCULAR: Regular S1 S2, GI: soft, normoactive bowel sounds, : No Renal angle tenderness; EXTREMITIES: No edema, no clubbing, MUSCULOSKELETAL: no muscle waisting NEURO: Awake; no lateralizing signs. SKIN: No Rash PSYCH; Flat affect Assessment & Plan Assessment/Plan (1) Pneumonia due to COVID-19 virus: (2) Acute respiratory failure with hypoxia: PLAN: Patient is a 60-year-old lady unvaccinated against COVID-19 pneumonia presented with progressive shortness of breath. An assessment of acute hypoxic respiratory failure secondary to COVID-19 made. Patient was initially managed on a regular nursing floor transfer to the intensive care unit due to rapid deterioration in her clinical condition 1. Acute hypoxic respiratory failure Is secondary to COVID-19 pneumonia strep pneumonia. Patient was transferred from regular nursing floor to the ICU due to rapidly deteriorating respiratory status. Patient apparently did not tolerate BiPAP but is okay with intubation 2. COVID-19 pneumonia ?Patient managed on dexamethasone and remdesivir. Patient may be a candidate for baricitinib due to her rapidly deteriorating oxygen saturation. Consult placed to ID to initiate baricitinib 3. Streptococcal pneumonia ?Patient blood cultures grew Streptococcus mitis. Ceftriaxone added to patient's therapy 4. Diabetes mellitus type II -patient's oral hypoglycemics held. Placed on long acting insulin, Accu-Cheks a.c. and at bedtime and covered with sliding scale insulin 5. Hypertension - Blood pressure controlled, home medications continued with dose adjustment as needed 6. Dyslipidemia -Patient is on statin therapy, continued at home dose 7. Acute kidney injury ?Creatinine on admission was 1.76 down to 1.24. Do suspect some chronicity we will continue with monitoring 8. DVT prophylaxis ?Lovenox Charges/Coding Visit Charges Inpatient E&M: 64586 [facility] Hosp L3
[2021-04-18 07:42] LABS: Platelet Estimate ADEQUATE (ADEQ)
[2021-04-18] MEDS: dexAMETHasone 4 MG Tablet 6 MG PO (08:47)
[2021-04-18] MEDS: Enoxaparin 30 MG/0.3 ML Syringe SC ×2 (08:47→20:01)
[2021-04-18 09:21] LABS: Bedside Glucose 177 mg/dL (70-110)
[2021-04-18] MEDS: LORazepam 2 MG/ML Syringe 0.5 MG IV (10:00)
[2021-04-18 12:10] LABS: Bedside Glucose 140 mg/dL (70-110)
--- NOTE | 2021-04-18 13:05 | NURSING ---
report given to zeny SAMS
[2021-04-18 15:56] LABS: Bedside Glucose 118 mg/dL (70-110)
[2021-04-18 20:16] LABS: Bedside Glucose 135 mg/dL (70-110)
--- NOTE | 2021-04-18 20:16 | PCM.CONS.GEN ---
Assessment & Plan Assessment/Plan (1) Acute respiratory failure with hypoxia: (2) Pneumonia due to COVID-19 virus: PLAN: Sx started around 04/08. Isolate until 04/28. Recommend completing vaccine series after discharge. On dex, remdesivir. On ceftriaxone for (+) 1/2 bcx with strep, likely contaminant. Worsening O2, elevated CRP. Reviewed EUA and risks/benefits, will start baricitinib. Will follow, thank you HPI Consult Data Date of Consult: 04/18/21 HPI Narrative HPI Narrative: JUSTIN MILLER, is a 60 F who presented 04/15 to ED with one week cough, fatigue, weakness, dyspnea, diarrhea. Found to be hypoxic, covid (+). Admitted on dex, remdesivir, ceftriaxone. Now worsening O2. Reports getting vaccine, not sure how many doses. Full ROS performed and neg except as noted above. [facility] Medical History Diabetes HTN (hypertension) Home Medications albuterol sulfate 1 puff INHALATION Q6H PRN 04/15/21 [History Last Taken Unknown] cholecalciferol (vitamin D3) [Vitamin D3] 25 mcg PO DAILY 04/15/21 [History Last Taken Unknown] dulaglutide [Trulicity] 3 mg SUBCUT WE 04/15/21 [History Last Taken Unknown] fluticasone propionate 1 spray INTRANASAL DAILY 04/15/21 [History Last Taken Unknown] insulin degludec [Tresiba U-100 Insulin] 54 unit SUBCUT DAILY 04/15/21 [History Last Taken Unknown] loratadine 10 mg PO DAILY 04/15/21 [History Last Taken Unknown] losartan 25 mg PO DAILY 04/15/21 [History Last Taken Unknown] metformin 1,000 mg PO BID 04/15/21 [History Last Taken Unknown] mometasone-formoterol [Dulera] 2 puff INHALATION BID 04/15/21 [History Last Taken Unknown] montelukast 10 mg PO QHS 04/15/21 [History Last Taken Unknown] simvastatin 20 mg PO QHS 04/15/21 [History Last Taken Unknown] Allergy/AdvReac Type Severity Reaction Status Date / Time No Known Allergies Allergy Verified 04/15/21 00:45 Family History Other Cancer Surgical History History of hysterectomy Social History Smoking Status: Former smoker Physical Exam Const Constitutional Narrative: ill appearing General Appearance: cooperative and lethargic HEENT normocephalic and head/scalp atraumatic Eyes PERRL and EOMs intact bilaterally Neck supple and No nodes Resp Auscultation: diminished lung sounds Cardio regular rate and regular rhythm GI normal to inspection, nondistended, normoactive bowel sounds Extremity no clubbing, cyanosis or edema Skin no rashes or lesions noted Neuro CN's II-XII intact bilaterally Lab / Micro Data Result Diagrams: 04/18/21 04:45 04/18/21 04:45 Labs: Laboratory Results - last 24 hr 04/17/21 17:00: POC Glucose 208 H 04/17/21 21:03: POC Glucose 486 H* 04/18/21 04:40: C-React Prot Ext Range 33.20 H 04/18/21 04:45: WBC 5.8, RBC 4.76, Hgb 12.7, Hct 39.3, MCV 82.6, MCH 26.7 L, MCHC 32.3, RDW Std Deviation 41.8, RDW Coeff of Carlos Enrique 13.9, Plt Count , MPV 10.4, Immature Gran % (Auto) 4.500 H, Neut % (Auto) 80.9 H, Lymph % (Auto) 11.8 L, [place] % (Auto) 2.6, Eos % (Auto) 0.0, Baso % (Auto) 0.2, Absolute Neuts (auto) 4.7, Absolute Lymphs (auto) 0.68 L, Nucleated RBC % 0.3, Platelet Estimate ADEQUATE 04/18/21 04:45: Sodium 139, Potassium 4.2, Chloride 107, Carbon Dioxide 25.0, Anion Gap 7, BUN 43 H, Creatinine 1.24 H, Estim Creat Clear Calc 39.41, Est GFR (MDRD) Af Amer 57 L, Est GFR (MDRD) Non-Af 47 L, BUN/Creatinine Ratio 34.7 H, Glucose 273 H, Calcium 8.5, Total Bilirubin 0.30, AST 57 H, ALT 50, Alkaline Phosphatase 124 H, Total Protein 7.9, Albumin 2.6 L, Globulin 5.3 H, Albumin/Globulin Ratio 0.5 L 04/18/21 08:33: POC Glucose 177 H 04/18/21 11:31: POC Glucose 140 H 04/18/21 15:51: POC Glucose 118 H Micro: Microbiology 04/18/21 08:50 Urine, Random Legionella Antigen - Final 04/18/21 08:50 Urine, Random Streptococcus pneumoniae Antigen (M - Final 04/15/21 01:50 Blood Culture (Wb) #2 - Anticubital Right Bacteria Detection (PCR) - Final Strep not Strep pneumo 04/15/21 01:50 Blood Culture (Wb) #2 - Anticubital Right Blood Culture - Preliminary Streptococcus mitis/ oralis 04/15/21 01:35 Blood Culture (Wb) - Anticubital Left Blood Culture - Preliminary No growth in 48 hours.
[2021-04-19] VITALS (30 sets, daily range): BP systolic 98–131; BP diastolic 65–108; PULSE 61–89; RESP 15–33; TEMP 36–36.8; O2SAT 75–100
[2021-04-19 03:16] LABS: Absolute Lymphocyte Count 0.81 X10^3/uL (0.83-4.51); Absolute Neutrophil Count 4.3 X10^3/uL (2.0-7.7); Basophil# 0.02 X10^3/uL; Basophil% 0.4 % (0-1); Hematocrit 35.2 % (37-47); Hemoglobin 11.3 g/dL (12.0-15.0); Lymphocyte # 0.81 X10^3/ul (0.83-4.51); Lymphocyte % 14.5 % (19-41); Mean Corp Hgb Conc 32.1 g/dL (32-36); Mean Corpuscular Hgb 26.8 pg (27.0-32.0); Mean Corpuscular Volume 83.4 fL (81-99); Mean Platelet Vol. 10.3 fl (6.2-12.0); Monocyte# 0.18 X10^3/uL; Monocyte% 3.2 % (0-10); NRBC Flagged by Analyzer 0.5 % (0-5); Neutrophil # 4.31 X10^3/uL (2.7-7.7); Neutrophil % 77.2 % (47-70); Platelet Count 226 K/mm3 (150-450); RBC Distribution Width CV 13.8 % (11.6-14.6); Red Blood Count 4.22 M/mm3 (4.2-5.4); White Blood Count 5.6 K/mm3 (4.4-11.0)
[2021-04-19 03:39] LABS: ALB/GLOB Ratio 0.5 RATIO (0.9-2.4); AST(SGOT) 35 U/L (15-37); Alanine Aminotransfer ALT/SGPT 36 U/L (13-56); Albumin, Serum 2.3 g/dL (3.2-5.0); Alkaline Phosphatase 98 U/L (45-117); Anion Gap 6 (5-15); BUN 36 mg/dL (7-18); Calcium,Total 8.1 mg/dL (8.5-10.1); Chloride 111 mmol/L (98-107); Creatinine, Serum 1.06 mg/dL (0.55-1.02); EST Glomerular Filtration Rate 56 mL/min (>60); Est Glom Filt Rate - Afr Amer 68 mL/min (>60); Globulin 4.5 g/dL (2.2-4.2); Glucose 65 mg/dL (74-106); Magnesium 1.6 mg/dL (1.6-2.6); Potassium 3.8 mmol/L (3.5-5.1); Protein, Total 6.8 g/dL (6.4-8.2); Sodium Level 145 mmol/L (136-145)
[2021-04-19] MEDS: Dextrose 50%-Water 25 GM/50 ML DISP.SYRIN IV ×2 (03:47→08:43)
[2021-04-19 03:56] LABS: Bedside Glucose 48 mg/dL (70-110)
--- NOTE | 2021-04-19 06:21 | PCM.PN.INT ---
Assessment & Plan Assessment/Plan (1) Acute respiratory failure with hypoxia: (2) Pneumonia due to COVID-19 virus: PLAN: RECOMMENDATIONS: 1. Continue to wean FiO2 for saturations greater 90%. 2. Continue remdesivir and Decadron as ordered. 3. Continue prophylactic Lovenox. 4. Baricitinib per ID recommendations. 5. The patient should remain n.p.o. pending improvement in respiratory status. IMPRESSIONS: 1. Acute hypoxemic respiratory failure secondary to COVID-19 pneumonia The patient initially presented to the hospital on April 15 with worsening shortness of breath and cough. She was subsequently found to be positive for COVID-19 pneumonia. CTA showed no evidence for pulmonary embolism. The patient was placed on antimicrobials, Decadron and remdesivir. Unfortunately, she continued to decompensate from a respiratory perspective, ultimately requiring transfer to the ICU. Her oxygenation status remains quite tenuous. She does seem reluctant to utilize BiPAP therapy. The patient will be continued on prophylactic Lovenox. I explained to the patient the need to utilize Pap therapy in order to prevent further decompensation and need for invasive mechanical ventilatory support. The patient will be continued on baricitinib as well per ID recommendations. The patient should remain n.p.o. pending improvement in her respiratory status. 2. Acute kidney injury Improving. Likely prerenal in etiology and related to #1. Hold nephrotoxic medications. Volume status is acceptable. However, I cannot discount the need for diuretics in the future. Continue to monitor urine output for now. No current indication for renal replacement therapy. 3. Diabetes mellitus/hypertension/hyperlipidemia Complicates care, management, recovery and prognosis. Continue Lantus and sliding scale insulin coverage. This note was generated with [employer] dictation software. It may contain incorrect words, spelling, and punctuation that were not noted in checking the note before signing. Subjective Subjective The patient was seen and examined at the bedside this morning. Events from the last 24 hours have been reviewed. The patient is currently afebrile, hemodynamically stable and maintaining appropriate oxygen saturations on a combination of Airvo heated high flow with an FiO2 of 93% and flow rate of 60 L along with a nonrebreather mask. The patient was not tolerant of BiPAP attempts yesterday, even with premedication with anxiolytic therapy. She is currently documented to be overall net +2.1 L for the hospitalization. Nursing staff did report that when the patient removes her nonrebreather mask, she readily desaturates quickly. The patient remains on remdesivir, antimicrobials, prophylactic Lovenox, Decadron and baricitinib. Creatinine has improved to 1.06 this morning. Liver function is stable. Objective Data Objective Data The patient's most recent lab work, culture data and imaging studies have all been personally reviewed. Rapid coronavirus antigen testing was positive on April 15. Vital Signs: Vital Signs Temp Pulse Resp BP Pulse Ox 97.2 F L 84 24 H 128/72 H 94 04/19/21 04:00 04/19/21 06:00 04/19/21 06:00 04/19/21 06:00 04/19/21 06:00 Oxygen Flow Rate (L/min) 60 Oxygen Delivery Method Airvo Weight: 65.3 kg Body Mass Index (BMI) 25.2 Intake & Output: Intake and Output for Last 24 Hours 04/17/21 04/18/21 04/19/21 23:59 23:59 23:59 Intake Total 1020 / 1265 785 / 785 Output Total 775 / 1275 1500 / 1500 200 / 200 Balance 245 / -10 -715 / -715 -200 / -200 Lab / Micro Data Attestation: I reviewed the patient's lab results. Result Diagrams: 04/19/21 03:10 04/19/21 03:10 Labs: Laboratory Results - last 24 hr 04/18/21 04:40: C-React Prot Ext Range 33.20 H 04/18/21 04:45: WBC 5.8, RBC 4.76, Hgb 12.7, Hct 39.3, MCV 82.6, MCH 26.7 L, MCHC 32.3, RDW Std Deviation 41.8, RDW Coeff of Carlos Enrique 13.9, Plt Count , MPV 10.4, Immature Gran % (Auto) 4.500 H, Neut % (Auto) 80.9 H, Lymph % (Auto) 11.8 L, [place] % (Auto) 2.6, Eos % (Auto) 0.0, Baso % (Auto) 0.2, Absolute Neuts (auto) 4.7, Absolute Lymphs (auto) 0.68 L, Nucleated RBC % 0.3, Platelet Estimate ADEQUATE 04/18/21 08:33: POC Glucose 177 H 04/18/21 11:31: POC Glucose 140 H 04/18/21 15:51: POC Glucose 118 H 04/18/21 19:53: POC Glucose 135 H 04/19/21 03:10: WBC 5.6, RBC 4.22, Hgb 11.3 L, Hct 35.2 L, MCV 83.4, MCH 26.8 L, MCHC 32.1, RDW Std Deviation 42.0, RDW Coeff of Carlos Enrique 13.8, Plt Count 226, MPV 10.3, Immature Gran % (Auto) 4.700 H, Neut % (Auto) 77.2 H, Lymph % (Auto) 14.5 L, [place] % (Auto) 3.2, Eos % (Auto) 0.0, Baso % (Auto) 0.4, Absolute Neuts (auto) 4.3, Absolute Lymphs (auto) 0.81 L, Nucleated RBC % 0.5 04/19/21 03:10: Sodium 145, Potassium 3.8, Chloride 111 H, Carbon Dioxide 28.0, Anion Gap 6, BUN 36 H, Creatinine 1.06 H, Estim Creat Clear Calc 46.10, Est GFR (MDRD) Af Amer 68, Est GFR (MDRD) Non-Af 56 L, BUN/Creatinine Ratio 34.0 H, Glucose 65 L, Calcium 8.1 L, Magnesium 1.6, Total Bilirubin 0.30, AST 35, ALT 36, Alkaline Phosphatase 98, Total Protein 6.8, Albumin 2.3 L, Globulin 4.5 H, Albumin/Globulin Ratio 0.5 L 04/19/21 03:44: POC Glucose 48 L Micro: Microbiology 04/18/21 08:50 Urine, Random Legionella Antigen - Final 04/18/21 08:50 Urine, Random Streptococcus pneumoniae Antigen (M - Final 04/15/21 01:50 Blood Culture (Wb) #2 - Anticubital Right Bacteria Detection (PCR) - Final Strep not Strep pneumo 04/15/21 01:50 Blood Culture (Wb) #2 - Anticubital Right Blood Culture - Preliminary Streptococcus mitis/ oralis 04/15/21 01:35 Blood Culture (Wb) - Anticubital Left Blood Culture - Preliminary No growth in 48 hours. 04/15/21 01:45 Mucosa - Nose Influenza Types A,B Direct FA (ERIK) - Final 04/15/21 01:45 Nasal Secretion SARS-CoV-2 Antigen (Rapid) - Final SARS-CoV-2 (COVID 19) Physical Exam Const alert Constitutional Narrative: Currently on a combination of high flow and nonrebreather. General Appearance: cooperative HEENT normocephalic and head/scalp atraumatic Eyes PERRL, EOMs intact bilaterally and conjunctivae normal Neck supple General: trachea midline Chest inspection of chest normal Resp normal respiratory effort Auscultation: diminished lung sounds Cardio regular rate and regular rhythm GI normal to inspection, nondistended, normoactive bowel sounds Extremity no clubbing, cyanosis or edema Skin no rashes or lesions noted Neuro no focal motor deficits Psych Mood & Affect: flat affect Charges/Coding Visit Charges Inpatient E&M: 82352 Subs Hosp L3
[2021-04-19 06:26] LABS: Bedside Glucose 224 mg/dL (70-110)
[2021-04-19] MEDS: Albuterol 2.5 MG/3 ML VIAL.NEB. INHALATION ×3 (06:52→19:59)
--- NOTE | 2021-04-19 06:54 | CPS ---
wearing NRB over the Airvo cannula.
--- NOTE | 2021-04-19 08:18 | PCM.PN.HOSP ---
Subjective Subjective Patient remains on high flow oxygen via Airvo. Apparently did not tolerate BiPAP. Patient was seen in consultation by infectious disease. Baricitinib added to patient treatment regimen Objective Data Objective Data Vital Signs: Vital Signs Temp Pulse Resp BP Pulse Ox 97.2 F L 89 25 H 123/82 H 99 04/19/21 04:00 04/19/21 08:00 04/19/21 08:00 04/19/21 08:00 04/19/21 08:00 Oxygen Flow Rate (L/min) 60 Oxygen Delivery Method Airvo Weight: 64.9 kg Body Mass Index (BMI) 25.2 Intake & Output: Intake and Output for Last 24 Hours 04/17/21 04/18/21 04/19/21 23:59 23:59 23:59 Intake Total 1020 / 1265 785 / 785 Output Total 775 / 1275 1500 / 1500 200 / 200 Balance 245 / -10 -715 / -715 -200 / -200 Lab / Micro Data Result Diagrams: 04/19/21 03:10 04/19/21 03:10 Labs: Laboratory Results - last 24 hr 04/18/21 08:33: POC Glucose 177 H 04/18/21 11:31: POC Glucose 140 H 04/18/21 15:51: POC Glucose 118 H 04/18/21 19:53: POC Glucose 135 H 04/19/21 03:10: WBC 5.6, RBC 4.22, Hgb 11.3 L, Hct 35.2 L, MCV 83.4, MCH 26.8 L, MCHC 32.1, RDW Std Deviation 42.0, RDW Coeff of Carlos Enrique 13.8, Plt Count 226, MPV 10.3, Immature Gran % (Auto) 4.700 H, Neut % (Auto) 77.2 H, Lymph % (Auto) 14.5 L, [place] % (Auto) 3.2, Eos % (Auto) 0.0, Baso % (Auto) 0.4, Absolute Neuts (auto) 4.3, Absolute Lymphs (auto) 0.81 L, Nucleated RBC % 0.5 04/19/21 03:10: Sodium 145, Potassium 3.8, Chloride 111 H, Carbon Dioxide 28.0, Anion Gap 6, BUN 36 H, Creatinine 1.06 H, Estim Creat Clear Calc 46.10, Est GFR (MDRD) Af Amer 68, Est GFR (MDRD) Non-Af 56 L, BUN/Creatinine Ratio 34.0 H, Glucose 65 L, Calcium 8.1 L, Magnesium 1.6, Total Bilirubin 0.30, AST 35, ALT 36, Alkaline Phosphatase 98, Total Protein 6.8, Albumin 2.3 L, Globulin 4.5 H, Albumin/Globulin Ratio 0.5 L 04/19/21 03:44: POC Glucose 48 L 04/19/21 04:16: POC Glucose 224 H Micro: Microbiology 04/18/21 08:50 Urine, Random Legionella Antigen - Final 04/18/21 08:50 Urine, Random Streptococcus pneumoniae Antigen (M - Final 04/15/21 01:50 Blood Culture (Wb) #2 - Anticubital Right Bacteria Detection (PCR) - Final Strep not Strep pneumo 04/15/21 01:50 Blood Culture (Wb) #2 - Anticubital Right Blood Culture - Preliminary Streptococcus mitis/ oralis 04/15/21 01:35 Blood Culture (Wb) - Anticubital Left Blood Culture - Preliminary No growth in 48 hours. 04/15/21 01:45 Mucosa - Nose Influenza Types A,B Direct FA (ERIK) - Final 04/15/21 01:45 Nasal Secretion SARS-CoV-2 Antigen (Rapid) - Final SARS-CoV-2 (COVID 19) Physical Exam Narrative GENERAL: cooperative HEENT: Atraumatic; EYES; Anicteric, Normal Conjunctiva NECK; supple, normal thyroid, RESPIRATORY: Diminished to auscultation CARDIOVASCULAR: Regular S1 S2, GI: soft, normoactive bowel sounds, : No Renal angle tenderness; EXTREMITIES: No edema, no clubbing, MUSCULOSKELETAL: no muscle waisting NEURO: Awake; no lateralizing signs. SKIN: No Rash PSYCH; Flat affect Assessment & Plan Assessment/Plan (1) Pneumonia due to COVID-19 virus: (2) Acute respiratory failure with hypoxia: PLAN: Patient is a 60-year-old lady unvaccinated against COVID-19 pneumonia presented with progressive shortness of breath. An assessment of acute hypoxic respiratory failure secondary to COVID-19 made. Patient was initially managed on a regular nursing floor transfer to the intensive care unit due to rapid deterioration in her clinical condition 1. Acute hypoxic respiratory failure Is secondary to COVID-19 pneumonia strep pneumonia. Patient was transferred from regular nursing floor to the ICU due to rapidly deteriorating respiratory status. Patient apparently did not tolerate BiPAP but is okay with intubation ?04/19/2021;Patient remains on high flow oxygen via Airvo. Apparently did not tolerate BiPAP. Patient was seen in consultation by infectious disease. Baricitinib added to patient treatment regimen 2. COVID-19 pneumonia ?Patient managed on dexamethasone and remdesivir. Patient may be a candidate for baricitinib due to her rapidly deteriorating oxygen saturation. Consult placed to ID to initiate baricitinib 3. Streptococcal pneumonia ?Patient blood cultures grew Streptococcus mitis. Ceftriaxone added to patient's therapy 4. Diabetes mellitus type II -patient's oral hypoglycemics held. Placed on long acting insulin, Accu-Cheks a.c. and at bedtime and covered with sliding scale insulin 5. Hypertension - Blood pressure controlled, home medications continued with dose adjustment as needed 6. Dyslipidemia -Patient is on statin therapy, continued at home dose 7. Acute kidney injury ?Creatinine on admission was 1.76 down to 1.24. Do suspect some chronicity we will continue with monitoring 8. DVT prophylaxis ?Lovenox Charges/Coding Visit Charges Inpatient E&M: 63874 Subs Hosp L3
[2021-04-19] MEDS: Enoxaparin 30 MG/0.3 ML Syringe SC ×2 (08:40→20:24)
[2021-04-19] MEDS: dexAMETHasone 4 MG Tablet 6 MG PO (08:43)
[2021-04-19 08:56] LABS: Bedside Glucose 56 mg/dL (70-110)
--- NOTE | 2021-04-19 11:18 | CASEMGMT ---
Addendum entered by Jes Kam 04/19/21 15:59: Initial referral faxed to [facility]. KAUSHIK Diggs Addendum entered by Jes Kam 04/19/21 15:10: SW spoke w/Tari at [facility], they do take pt's insurance. SW spoke w/PT and OT, they state pt would benefit from SNF placement. Once pt has PT and OT, will fax referral just to give [facility] some initial information, pt is not ready for discharge yet as she is still on Airvo. KAUSHIK Diggs Original Note: Social Work SW met w/pt in room to review discharge plan. SW explained to pt the only local [facility] facility that will take COVID+ patients is [facility] in [place]. Pt is agreeable to SW sending a referral to [facility], agreeable to SNF level of care if needed. Pt has not had PT/OT yet, and pt is still on Airvo, so pt not ready for discharge. Once pt is on less O2, referral will be sent to [facility]. SW did call [facility] and message left inquiring if they take pt's insurance. SW also spoke w/pt about POA for Healthcare. Pt has not completed this document, would be interested in completing POA for healthcare while she is here. Pt has 3 sisters and many nieces, she states her nieces help to care for her. Her niece Suni is who she would want as POA. Plan: Likely SNF, likely referral to [facility]. Also, SW to assist with POA when pt is feeling a bit better and up for completing the document. KAUSHIK Diggs
[2021-04-19 13:01] LABS: Bedside Glucose 84 mg/dL (70-110)
[2021-04-19 16:40] LABS: Bedside Glucose 158 mg/dL (70-110)
[2021-04-19 21:30] LABS: Bedside Glucose 139 mg/dL (70-110)
--- NOTE | 2021-04-19 22:06 | NURSING ---
pt took her 02 off. on ra 75%
[2021-04-20] VITALS (24 sets, daily range): BP systolic 98–118; BP diastolic 68–90; PULSE 57–104; RESP 19–35; TEMP 36.6–36.8; O2SAT 92–98
[2021-04-20 03:53] LABS: Hematocrit 40.7 % (37-47); Hemoglobin 12.6 g/dL (12.0-15.0); Mean Corpuscular Hgb 26.6 pg (27.0-32.0); Mean Platelet Vol. 10.7 fl (6.2-12.0); POSITIVE COUNT YES; POSITIVE MORPHOLOGY YES; Platelet Count 195 K/mm3 (150-450); RBC Distribution Width CV 13.8 % (11.6-14.6); RBC Distribution Width SD 43.4 fl (35.1-43.9); Red Blood Count 4.73 M/mm3 (4.2-5.4); White Blood Count 5.4 K/mm3 (4.4-11.0)
[2021-04-20 03:56] LABS: Differential Indicated MANUAL DIFF
[2021-04-20 04:14] LABS: Absolute Neutrophil Count 3.7 X10^3/uL (2.0-7.7)
[2021-04-20 04:15] LABS: Lymphocyte 26 % (19-41); Monocyte 3 % (0-10); Myelocyte 2 % (0-0); Neutrophil-Segmented 69 % (47-70); Platelet Estimate ADEQUATE (ADEQ); Red Cell Morphology NORM C+C NORMAL (NORM C&C); Total Cells Counted 100 (MANUAL DIFF)
[2021-04-20 04:20] LABS: ALB/GLOB Ratio 0.5 RATIO (0.9-2.4); AST(SGOT) 35 U/L (15-37); Alanine Aminotransfer ALT/SGPT 33 U/L (13-56); Albumin, Serum 2.2 g/dL (3.2-5.0); Alkaline Phosphatase 100 U/L (45-117); Anion Gap 8 (5-15); BUN 36 mg/dL (7-18); BUN/Creat Ratio 35.6 RATIO (10-20); Calcium,Total 8.2 mg/dL (8.5-10.1); Chloride 111 mmol/L (98-107); Creatinine, Serum 1.01 mg/dL (0.55-1.02); EST Glomerular Filtration Rate 59 mL/min (>60); Est Glom Filt Rate - Afr Amer 72 mL/min (>60); Estimated Creatinine Clearance 48.39 ml/min; Globulin 4.8 g/dL (2.2-4.2); Glucose 68 mg/dL (74-106); Potassium 4.5 mmol/L (3.5-5.1); Sodium Level 143 mmol/L (136-145)
[2021-04-20] MEDS: Dextrose 50%-Water 25 GM/50 ML DISP.SYRIN IV (04:33)
[2021-04-20] MEDS: 0.9% Saline Lock 10 ML Syringe IV ×2 (04:35→06:52)
--- NOTE | 2021-04-20 05:47 | NURSING ---
Pt po 100% with airvo at 60l 92 %. and 100% nonrebreather mask. .So nonrebreather mask removed. pt sats drop to 82%. Nonrebreather mask reapplied.
[2021-04-20 05:51] LABS: Bedside Glucose 108 mg/dL (70-110)
--- NOTE | 2021-04-20 06:25 | PCM.PN.INT ---
Assessment & Plan Assessment/Plan (1) Acute respiratory failure with hypoxia: (2) Pneumonia due to COVID-19 virus: PLAN: RECOMMENDATIONS: 1. Continue to wean FiO2 for saturations greater 90%. 2. Continue remdesivir and Decadron as ordered. 3. Continue prophylactic Lovenox. 4. Baricitinib per ID recommendations. 5. The patient should remain n.p.o. pending improvement in respiratory status. 6. Start scheduled Lasix today and continue, as tolerated by hemodynamics and renal function. IMPRESSIONS: 1. Acute hypoxemic respiratory failure secondary to COVID-19 pneumonia The patient initially presented to the hospital on April 15 with worsening shortness of breath and cough. She was subsequently found to be positive for COVID-19 pneumonia. CTA showed no evidence for pulmonary embolism. The patient was placed on antimicrobials, Decadron and remdesivir. Unfortunately, she continued to decompensate from a respiratory perspective, ultimately requiring transfer to the ICU. Her oxygenation status remains quite tenuous. The patient has been intolerant of BiPAP therapy. The patient will be continued on baricitinib as well per ID recommendations. The patient should remain n.p.o. pending improvement in her respiratory status. Will start her on scheduled IV Lasix today. 2. Acute kidney injury Resolved. Likely prerenal in etiology and related to #1. Continue to monitor urine output for now. No current indication for renal replacement therapy. 3. Diabetes mellitus/hypertension/hyperlipidemia Complicates care, management, recovery and prognosis. Dose adjust Lantus and continue sliding scale coverage, given n.p.o. status. This note was generated with [employer] dictation software. It may contain incorrect words, spelling, and punctuation that were not noted in checking the note before signing. Subjective Subjective The patient was seen and examined at the bedside this morning. Events from the last 24 hours have been reviewed. The patient is currently afebrile, hemodynamically stable and maintaining appropriate oxygen saturations on a combination of Airvo heated high flow with an FiO2 of 92% and flow rate of 60 L along with a nonrebreather mask. Per nursing report, each time the nonrebreather mask is removed, the patient readily desaturates. She has been intolerant of BiPAP therapy. She is currently documented to be overall net +1.6 L for the hospitalization. Liver and renal function are stable. The patient will complete her remdesivir today. She remains on antimicrobials, prophylactic Lovenox, Decadron and baricitinib. Objective Data Objective Data The patient's most recent lab work, culture data and imaging studies have all been personally reviewed. Rapid coronavirus antigen testing was positive on April 15. Vital Signs: Vital Signs Temp Pulse Resp BP Pulse Ox 98.2 F 62 22 H 118/79 93 04/20/21 04:03 04/20/21 05:16 04/20/21 05:16 04/20/21 04:03 04/20/21 05:16 Oxygen Flow Rate (L/min) 60 Oxygen Delivery Method Airvo Weight: 64 kg Body Mass Index (BMI) 25.2 Intake & Output: Intake and Output for Last 24 Hours 04/18/21 04/19/21 04/20/21 23:59 23:59 23:59 Intake Total 785 / 785 595 / 595 60 / 60 Output Total 1500 / 1500 1100 / 1100 200 / 200 Balance -715 / -715 -505 / -505 -140 / -140 Lab / Micro Data Attestation: I reviewed the patient's lab results. Result Diagrams: 04/20/21 03:30 04/20/21 03:30 Labs: Laboratory Results - last 24 hr 04/19/21 04:16: POC Glucose 224 H 04/19/21 08:31: POC Glucose 56 L 04/19/21 10:55: POC Glucose 84 04/19/21 16:12: POC Glucose 158 H 04/19/21 20:21: POC Glucose 139 H 04/20/21 03:30: WBC 5.4, RBC 4.73, Hgb 12.6, Hct 40.7, MCV 86.0, MCH 26.6 L, MCHC 31.0 L, RDW Std Deviation 43.4, RDW Coeff of Carlos Enrique 13.8, Plt Count 195, MPV 10.7, Neut % (Auto) Not Reportable, Absolute Neuts (auto) 3.7, Absolute Lymphs (auto) 1.40, Total Counted 100, Neutrophils % (Manual) 69, Lymphocytes % (Manual) 26, Monocytes % (Manual) 3, Myelocytes % 2 H, Diff Path Review September, Platelet Estimate ADEQUATE, RBC Morphology NORM C+C 04/20/21 03:30: Sodium 143, Potassium 4.5, Chloride 111 H, Carbon Dioxide 24.0, Anion Gap 8, BUN 36 H, Creatinine 1.01, Estim Creat Clear Calc 48.39, Est GFR (MDRD) Af Amer 72, Est GFR (MDRD) Non-Af 59 L, BUN/Creatinine Ratio 35.6 H, Glucose 68 L, Calcium 8.2 L, Total Bilirubin 0.40, AST 35, ALT 33, Alkaline Phosphatase 100, Total Protein 7.0, Albumin 2.2 L, Globulin 4.8 H, Albumin/Globulin Ratio 0.5 L 04/20/21 05:33: POC Glucose 108 Micro: Microbiology 04/18/21 08:50 Urine, Random Legionella Antigen - Final 04/18/21 08:50 Urine, Random Streptococcus pneumoniae Antigen (M - Final 04/15/21 01:50 Blood Culture (Wb) #2 - Anticubital Right Bacteria Detection (PCR) - Final Strep not Strep pneumo 04/15/21 01:50 Blood Culture (Wb) #2 - Anticubital Right Blood Culture - Preliminary Streptococcus mitis/ oralis 04/15/21 01:35 Blood Culture (Wb) - Anticubital Left Blood Culture - Preliminary No growth in 48 hours. 04/15/21 01:45 Mucosa - Nose Influenza Types A,B Direct FA (ERIK) - Final 04/15/21 01:45 Nasal Secretion SARS-CoV-2 Antigen (Rapid) - Final SARS-CoV-2 (COVID 19) Physical Exam Const alert Constitutional Narrative: Currently on a combination of high flow and nonrebreather. General Appearance: cooperative HEENT normocephalic and head/scalp atraumatic Eyes PERRL, EOMs intact bilaterally and conjunctivae normal Neck supple General: trachea midline Chest inspection of chest normal Resp Effort and Inspection: tachypneic Auscultation: diminished lung sounds Cardio regular rate and regular rhythm GI normal to inspection, nondistended, normoactive bowel sounds Extremity no clubbing, cyanosis or edema Skin no rashes or lesions noted Neuro no focal motor deficits Psych Mood & Affect: flat affect Charges/Coding Visit Charges Inpatient E&M: 93093 Subs Hosp L3
[2021-04-20] MEDS: Furosemide 40 MG/4 ML Vial IV (06:52)
[2021-04-20] MEDS: Albuterol 2.5 MG/3 ML VIAL.NEB. INHALATION ×3 (07:04→19:25)
--- NOTE | 2021-04-20 07:18 | PCM.PN.HOSP ---
Subjective Subjective Patient seen remains in the ICU. Remains on Airvo with flow of 60 L/min and FiO2 of 92% in addition to 100% nonrebreather. Patient still declines BiPAP Objective Data Objective Data Vital Signs: Vital Signs Temp Pulse Resp BP Pulse Ox 98.2 F 71 25 H 113/80 98 04/20/21 04:03 04/20/21 07:04 04/20/21 07:04 04/20/21 07:01 04/20/21 07:04 Oxygen Flow Rate (L/min) 60 Oxygen Delivery Method Non-Rebreather @ 15L/min Weight: 64 kg Body Mass Index (BMI) 25.2 Intake & Output: Intake and Output for Last 24 Hours 04/18/21 04/19/21 04/20/21 23:59 23:59 23:59 Intake Total 785 / 785 595 / 595 60 / 60 Output Total 1500 / 1500 1100 / 1100 200 / 200 Balance -715 / -715 -505 / -505 -140 / -140 Lab / Micro Data Result Diagrams: 04/20/21 03:30 04/20/21 03:30 Labs: Laboratory Results - last 24 hr 04/19/21 08:31: POC Glucose 56 L 04/19/21 10:55: POC Glucose 84 04/19/21 16:12: POC Glucose 158 H 04/19/21 20:21: POC Glucose 139 H 04/20/21 03:30: WBC 5.4, RBC 4.73, Hgb 12.6, Hct 40.7, MCV 86.0, MCH 26.6 L, MCHC 31.0 L, RDW Std Deviation 43.4, RDW Coeff of Carlos Enrique 13.8, Plt Count 195, MPV 10.7, Neut % (Auto) Not Reportable, Absolute Neuts (auto) 3.7, Absolute Lymphs (auto) 1.40, Total Counted 100, Neutrophils % (Manual) 69, Lymphocytes % (Manual) 26, Monocytes % (Manual) 3, Myelocytes % 2 H, Diff Path Review May , Platelet Estimate ADEQUATE, RBC Morphology NORM C+C 04/20/21 03:30: Sodium 143, Potassium 4.5, Chloride 111 H, Carbon Dioxide 24.0, Anion Gap 8, BUN 36 H, Creatinine 1.01, Estim Creat Clear Calc 48.39, Est GFR (MDRD) Af Amer 72, Est GFR (MDRD) Non-Af 59 L, BUN/Creatinine Ratio 35.6 H, Glucose 68 L, Calcium 8.2 L, Total Bilirubin 0.40, AST 35, ALT 33, Alkaline Phosphatase 100, Total Protein 7.0, Albumin 2.2 L, Globulin 4.8 H, Albumin/Globulin Ratio 0.5 L 04/20/21 05:33: POC Glucose 108 Micro: Microbiology 04/18/21 08:50 Urine, Random Legionella Antigen - Final 04/18/21 08:50 Urine, Random Streptococcus pneumoniae Antigen (M - Final 04/15/21 01:50 Blood Culture (Wb) #2 - Anticubital Right Bacteria Detection (PCR) - Final Strep not Strep pneumo 04/15/21 01:50 Blood Culture (Wb) #2 - Anticubital Right Blood Culture - Preliminary Streptococcus mitis/ oralis 04/15/21 01:35 Blood Culture (Wb) - Anticubital Left Blood Culture - Preliminary No growth in 48 hours. 04/15/21 01:45 Mucosa - Nose Influenza Types A,B Direct FA (ERIK) - Final 04/15/21 01:45 Nasal Secretion SARS-CoV-2 Antigen (Rapid) - Final SARS-CoV-2 (COVID 19) Physical Exam Narrative GENERAL: cooperative HEENT: Atraumatic; EYES; Anicteric, Normal Conjunctiva NECK; supple, normal thyroid, RESPIRATORY: Diminished to auscultation CARDIOVASCULAR: Regular S1 S2, GI: soft, normoactive bowel sounds, : No Renal angle tenderness; EXTREMITIES: No edema, no clubbing, MUSCULOSKELETAL: no muscle waisting NEURO: Awake; no lateralizing signs. SKIN: No Rash PSYCH; Flat affect Assessment & Plan Assessment/Plan (1) Pneumonia due to COVID-19 virus: (2) Acute respiratory failure with hypoxia: PLAN: Patient is a 60-year-old lady unvaccinated against COVID-19 pneumonia presented with progressive shortness of breath. An assessment of acute hypoxic respiratory failure secondary to COVID-19 made. Patient was initially managed on a regular nursing floor transfer to the intensive care unit due to rapid deterioration in her clinical condition 1. Acute hypoxic respiratory failure Is secondary to COVID-19 pneumonia strep pneumonia. Patient was transferred from regular nursing floor to the ICU due to rapidly deteriorating respiratory status. Patient apparently did not tolerate BiPAP but is okay with intubation ?04/19/2021;Patient remains on high flow oxygen via Airvo. Apparently did not tolerate BiPAP. Patient was seen in consultation by infectious disease. Baricitinib added to patient treatment regimen -04/20/2021 Patient seen remains in the ICU. Remains on Airvo with flow of 60 L/min and FiO2 of 92% in addition to 100% nonrebreather. Patient still declines BiPAP 2. COVID-19 pneumonia ?Patient managed on dexamethasone and remdesivir. Patient may be a candidate for baricitinib due to her rapidly deteriorating oxygen saturation. Consult placed to ID to initiate baricitinib 3. Streptococcal pneumonia ?Patient blood cultures grew Streptococcus mitis. Ceftriaxone added to patient's therapy 4. Diabetes mellitus type II -patient's oral hypoglycemics held. Placed on long acting insulin, Accu-Cheks a.c. and at bedtime and covered with sliding scale insulin 5. Hypertension - Blood pressure controlled, home medications continued with dose adjustment as needed 6. Dyslipidemia -Patient is on statin therapy, continued at home dose 7. Acute kidney injury ?Creatinine on admission was 1.76 down to 1.24. Do suspect some chronicity we will continue with monitoring 8. DVT prophylaxis ?Lovenox Charges/Coding Visit Charges Inpatient E&M: 50454 Subs Hosp L3
[2021-04-20] MEDS: Enoxaparin 30 MG/0.3 ML Syringe SC ×2 (08:20→21:34)
[2021-04-20] MEDS: dexAMETHasone 4 MG Tablet 6 MG PO (08:20)
--- NOTE | 2021-04-20 10:42 | CASEMGMT ---
Social Work Social Work attended ICU rounds. SW spoke with nurse who confirms pt is alert and oriented and able to talk inspite of the Airvo and non rebreather. SW met with pt in the room and introduced self and role of SW. SW explained Health Care POA and legal decision making hierarchy of decision makers. Pt stating that her niece Suni assists her with all of her medical care and she would want Suni Randhawa to be her HCPOA. SW assisted pt in completing HCPOA. SW inquired about living will but pt does not want to complete this document. Copy of HCPOA placed in pt chart and original given to MEDIATION COMMISSIONER to take into pt room and placed with personal belongings on next visit to room. Phone call placed to Suni Randhawa and MAKENNA updated that pt has named her as HCPOA and Suni is agreeable. MALIKA Messina
[2021-04-20 11:35] LABS: Bedside Glucose 84 mg/dL (70-110)
--- NOTE | 2021-04-20 11:38 | NURSING ---
patients O2 sats 97% on airvo 60L/93% and nonrebreather, this RN removed nonrebreather while in the room, after approximately 5 minutes sats dropped to 85%, re-placed nonbreather at that time, patient denies SOB, tolerating well.
[2021-04-20] MEDS: Menthol/Lanolin/Calamine/Znox 113 GM Tube 1 APPLIC TOPICAL ×2 (14:22→21:34)
[2021-04-20 14:27] LABS: Pathologist Review Reviewed
[2021-04-20 21:45] LABS: Bedside Glucose 145 mg/dL (70-110)
[2021-04-20 22:51] LABS: Bedside Glucose 170 mg/dL (70-110)
[2021-04-21] VITALS (31 sets, daily range): BP systolic 70–139; BP diastolic 52–88; PULSE 57–105; RESP 14–26; TEMP 36.5–37.1; O2SAT 91–100
[2021-04-21 05:16] LABS: Hematocrit 39.7 % (37-47); Hemoglobin 12.5 g/dL (12.0-15.0); Mean Corp Hgb Conc 31.5 g/dL (32-36); Mean Corpuscular Hgb 26.7 pg (27.0-32.0); Mean Corpuscular Volume 84.6 fL (81-99); Mean Platelet Vol. 10.1 fl (6.2-12.0); POSITIVE COUNT YES; POSITIVE MORPHOLOGY YES; Platelet Count 242 K/mm3 (150-450); RBC Distribution Width CV 13.8 % (11.6-14.6); RBC Distribution Width SD 42.5 fl (35.1-43.9); Red Blood Count 4.69 M/mm3 (4.2-5.4)
[2021-04-21 05:17] LABS: Differential Indicated MANUAL DIFF
[2021-04-21 05:35] LABS: ALB/GLOB Ratio 0.5 RATIO (0.9-2.4); AST(SGOT) 28 U/L (15-37); Absolute Lymphocyte Count 1.26 X10^3/uL (0.83-4.51); Absolute Neutrophil Count 4.2 X10^3/uL (2.0-7.7); Alanine Aminotransfer ALT/SGPT 29 U/L (13-56); Albumin, Serum 2.4 g/dL (3.2-5.0); Alkaline Phosphatase 105 U/L (45-117); Anion Gap 9 (5-15); BUN 48 mg/dL (7-18); BUN/Creat Ratio 38.7 RATIO (10-20); Calcium,Total 8.5 mg/dL (8.5-10.1); Chloride 108 mmol/L (98-107); Creatinine, Serum 1.24 mg/dL (0.55-1.02); EST Glomerular Filtration Rate 47 mL/min (>60); Est Glom Filt Rate - Afr Amer 57 mL/min (>60); Estimated Creatinine Clearance 39.41 ml/min; Globulin 4.9 g/dL (2.2-4.2); Glucose 75 mg/dL (74-106); Lymphocyte 21 % (19-41); Metamyelocyte 1 % (0-1); Monocyte 2 % (0-10); Myelocyte 3 % (0-0); Neutrophil-Segmented 70 % (47-70); Platelet Estimate ADEQUATE (ADEQ); Potassium 4.3 mmol/L (3.5-5.1); Promyelocyte 3 % (0-0); Protein, Total 7.3 g/dL (6.4-8.2); Red Cell Morphology NORM C+C NORMAL (NORM C&C); Sodium Level 145 mmol/L (136-145); Total Cells Counted 100 (MANUAL DIFF)
--- NOTE | 2021-04-21 06:03 | PN.CC_ITS ---
Assessment & Plan Assessment/Plan (1) Acute respiratory failure with hypoxia: (2) Pneumonia due to COVID-19 virus: PLAN: RECOMMENDATIONS: 1. Proceed with intubation. 2. Obtain arterial blood gas 1 hour post intubation. 3. Obtain and send sputum for culture. 4. Okay to initiate tube feeds today from my perspective. 5. Continue Decadron to complete treatment course. 6. Continue baricitinib to complete treatment course. 7. Continue prophylactic Lovenox. 8. Diuretics as tolerated by hemodynamics and renal function. IMPRESSIONS: 1. Acute hypoxemic respiratory failure secondary to COVID-19 pneumonia The patient initially presented to the hospital on April 15 with worsening shortness of breath and cough. She was subsequently found to be positive for COVID-19 pneumonia. CTA showed no evidence for pulmonary embolism. The patient was placed on antimicrobials, Decadron and remdesivir. Unfortunately, she continued to decompensate from a respiratory perspective, ultimately requiring transfer to the ICU and intubation on April 21. The patient will be continued on baricitinib per ID recommendations. Diuretics will be utilized intermittently to maintain euvolemic state. Tube feeds can be initiated today from my perspective. 2. Acute kidney injury Likely prerenal in etiology and related to #1. Continue to monitor urine output for now. No current indication for renal replacement therapy. Given overnight increase in creatinine, will hold diuretics today. 3. Diabetes mellitus/hypertension/hyperlipidemia Complicates care, management, recovery and prognosis. Continue Lantus and sliding scale insulin coverage. TIME: 37 minutes of critical care time, independent of procedures, was spent addressing the patient's acute hypoxemic respiratory failure secondary to COVID- 19 pneumonia, acute kidney injury, review of all data and collaboration with the care team. Subjective Subjective The patient was seen and examined at the bedside this morning. Events from the last 24 hours have been reviewed. For multiple days now, the patient has been unable to be weaned from her combination of heated high flow and nonrebreather mask. She has accordingly remained n.p.o. for several days now. The patient readily desaturates still with removal of the nonrebreather. She has been intolerant of BiPAP therapy. She is currently documented to be overall net +1 L for the hospitalization. Creatinine is increased to 1.24 this morning. The patient did receive a one-time dose of IV Lasix yesterday. The patient has completed her treatment course of remdesivir and remains on antimicrobials, prophylactic Lovenox, Decadron and baricitinib. In light of the patient's lack of improvement in her respiratory status and given that she has remained n.p.o. for 3+ days, the decision was made to proceed with intubation this morning, following a discussion with the patient. Intubation Indication: Respiratory failure Consent was obtained from: Patient The patient was placed in the appropriate sniffing position. Preoxygenated sedation via [id number] was provided for a minimum of 3 minutes. The patient had continuous cardiac as well as pulse oximetry monitoring during the procedure. Procedure sedation was provided by the administration of 4 mg of Versed, 20 mg of etomidate and 100 mg of succinylcholine. Direct laryngoscopy was then performed using a number 3 MAC blade, which revealed a grade 1 view. A 7.5 mm endotracheal tube was visualized advancing between the cords to the level of 23 cm at the lip. The stylette was then removed and discarded. Tube placement was confirmed by fogging in the tube along with equal and bilateral breath sounds. Colorimetric change was visualized on the CO2 meter. The cuff was then inflated and the tube secured using a commercially available device. A good pulse oximetry waveform was seen on the monitor throughout the procedure. A portable chest x-ray has been ordered to confirm appropriate placement. The patient tolerated the procedure well. Objective Data Objective Data The patient's most recent lab work, culture data and imaging studies have all been personally reviewed. Rapid coronavirus antigen testing was positive on April 15. Vital Signs: Vital Signs Temp Pulse Resp BP Pulse Ox 98.1 F 71 23 H 135/80 H 100 04/21/21 05:00 04/21/21 05:00 04/21/21 05:00 04/21/21 05:00 04/21/21 05:00 Oxygen Flow Rate (L/min) 60 Oxygen Delivery Method Airvo Weight: 61.9 kg Body Mass Index (BMI) 25.2 Intake & Output: Intake and Output for Last 24 Hours 04/19/21 04/20/21 04/21/21 23:59 23:59 23:59 Intake Total 595 / 595 420 / 420 Output Total 1100 / 1100 1150 / 1150 Balance -505 / -505 -730 / -730 Lab / Micro Data Attestation: I reviewed the patient's lab results. Result Diagrams: 04/21/21 05:00 04/21/21 05:00 Labs: Laboratory Results - last 24 hr 04/20/21 03:30: Diff Path Review Reviewed 04/20/21 11:24: POC Glucose 84 04/20/21 17:14: POC Glucose 170 H 04/20/21 21:33: POC Glucose 145 H 04/21/21 05:00: WBC 6.0, RBC 4.69, Hgb 12.5, Hct 39.7, MCV 84.6, MCH 26.7 L, MCHC 31.5 L, RDW Std Deviation 42.5, RDW Coeff of Carlos Enrique 13.8, Plt Count 242, MPV 10.1, Neut % (Auto) Not Reportable, Absolute Neuts (auto) 4.2, Absolute Lymphs (auto) 1.26, Total Counted 100, Neutrophils % (Manual) 70, Lymphocytes % (Manua l) 21, Monocytes % (Manual) 2, Metamyelocytes % 1, Myelocytes % 3 H, Promyelocytes % 3 H, Diff Path Review May foll, Platelet Estimate ADEQUATE, RBC Morphology NORM C+C 04/21/21 05:00: Sodium 145, Potassium 4.3, Chloride 108 H, Carbon Dioxide 28.0, Anion Gap 9, BUN 48 H, Creatinine 1.24 H, Estim Creat Clear Calc 39.41, Est GFR (MDRD) Af Amer 57 L, Est GFR (MDRD) Non-Af 47 L, BUN/Creatinine Ratio 38.7 H, Glucose 75, Calcium 8.5, Total Bilirubin 0.40, AST 28, ALT 29, Alkaline Phosphatase 105, Total Protein 7.3, Albumin 2.4 L, Globulin 4.9 H, Albumin/Globulin Ratio 0.5 L Micro: Microbiology 04/17/21 18:00 Blood Culture (Wb) - Anticubital Left Blood Culture - Preliminary No growth in 48 hours. 04/15/21 01:50 Blood Culture (Wb) #2 - Anticubital Right Bacteria Detection (PCR) - Final Strep not Strep pneumo 04/15/21 01:50 Blood Culture (Wb) #2 - Anticubital Right Blood Culture - Final Streptococcus mitis/ oralis 04/15/21 01:35 Blood Culture (Wb) - Anticubital Left Blood Culture - Final No growth in 5 days. 04/18/21 08:50 Urine, Random Legionella Antigen - Final 04/18/21 08:50 Urine, Random Streptococcus pneumoniae Antigen (M - Final 04/15/21 01:45 Mucosa - Nose Influenza Types A,B Direct FA (ERIK) - Final 04/15/21 01:45 Nasal Secretion SARS-CoV-2 Antigen (Rapid) - Final SARS-CoV-2 (COVID 19) Physical Exam Const no apparent distress General Appearance: intubated and patient mechanically ventilated HEENT normocephalic and head/scalp atraumatic Mouth: endotracheal tube in place and OG tube in place Eyes PERRL, EOMs intact bilaterally and conjunctivae normal Neck supple General: trachea midline Chest inspection of chest normal Resp Auscultation: diminished lung sounds Cardio regular rate and regular rhythm GI normal to inspection, nondistended, normoactive bowel sounds Extremity no clubbing, cyanosis or edema Skin no rashes or lesions noted Neuro Sensorium / Orientation: sedated on vent Charges/Coding Procedures Hospitalists Procedures: 36634 Critial Care 1st Hr
[2021-04-21] MEDS: Menthol/Lanolin/Calamine/Znox 113 GM Tube 1 APPLIC TOPICAL ×3 (06:15→20:35)
[2021-04-21] MEDS: Albuterol 2.5 MG/3 ML VIAL.NEB. INHALATION ×3 (06:39→19:31)
--- NOTE | 2021-04-21 07:31 | PN.HOSP_ITS ---
Subjective Subjective Patient was intubated due to deteriorating respiratory status Objective Data Objective Data Vital Signs: Vital Signs Temp Pulse Resp BP Pulse Ox 98.1 F 72 14 135/80 H 92 04/21/21 05:00 04/21/21 06:40 04/21/21 06:40 04/21/21 05:00 04/21/21 06:40 Oxygen Flow Rate (L/min) 60 Oxygen Delivery Method Airvo Weight: 61.9 kg Body Mass Index (BMI) 25.2 Intake & Output: Intake and Output for Last 24 Hours 04/19/21 04/20/21 04/21/21 23:59 23:59 23:59 Intake Total 595 / 595 420 / 420 Output Total 1100 / 1100 1150 / 1150 Balance -505 / -505 -730 / -730 Lab / Micro Data Result Diagrams: 04/21/21 05:00 04/21/21 05:00 Labs: Laboratory Results - last 24 hr 04/20/21 03:30: Diff Path Review Reviewed 04/20/21 11:24: POC Glucose 84 04/20/21 17:14: POC Glucose 170 H 04/20/21 21:33: POC Glucose 145 H 04/21/21 05:00: WBC 6.0, RBC 4.69, Hgb 12.5, Hct 39.7, MCV 84.6, MCH 26.7 L, MCHC 31.5 L, RDW Std Deviation 42.5, RDW Coeff of Carlos Enrique 13.8, Plt Count 242, MPV 10.1, Neut % (Auto) Not Reportable, Absolute Neuts (auto) 4.2, Absolute Lymphs (auto) 1.26, Total Counted 100, Neutrophils % (Manual) 70, Lymphocytes % ( Manual) 21, Monocytes % (Manual) 2, Metamyelocytes % 1, Myelocytes % 3 H, Promyelocytes % 3 H, Diff Path Review May , Platelet Estimate ADEQUATE, RBC Morphology NORM C+C 04/21/21 05:00: Sodium 145, Potassium 4.3, Chloride 108 H, Carbon Dioxide 28.0, Anion Gap 9, BUN 48 H, Creatinine 1.24 H, Estim Creat Clear Calc 39.41, Est GFR (MDRD) Af Amer 57 L, Est GFR (MDRD) Non-Af 47 L, BUN/Creatinine Ratio 38.7 H, Glucose 75, Calcium 8.5, Total Bilirubin 0.40, AST 28, ALT 29, Alkaline Phosphatase 105, Total Protein 7.3, Albumin 2.4 L, Globulin 4.9 H, Albumin/Globulin Ratio 0.5 L Micro: Microbiology 04/17/21 18:00 Blood Culture (Wb) - Anticubital Left Blood Culture - Preliminary No growth in 48 hours. 04/15/21 01:50 Blood Culture (Wb) #2 - Anticubital Right Bacteria Detection (PCR) - Final Strep not Strep pneumo 04/15/21 01:50 Blood Culture (Wb) #2 - Anticubital Right Blood Culture - F inal Streptococcus mitis/ oralis 04/15/21 01:35 Blood Culture (Wb) - Anticubital Left Blood Culture - Final No growth in 5 days. 04/18/21 08:50 Urine, Random Legionella Antigen - Final 04/18/21 08:50 Urine, Random Streptococcus pneumoniae Antigen (M - Final 04/15/21 01:45 Mucosa - Nose Influenza Types A,B Direct FA (ERIK) - Final 04/15/21 01:45 Nasal Secretion SARS-CoV-2 Antigen (Rapid) - Final SARS-CoV-2 (COVID 19) Physical Exam Narrative GENERAL: Sedated on the vent HEENT: Atraumatic; EYES; Anicteric, Normal Conjunctiva NECK; supple, normal thyroid, RESPIRATORY: Diminished to auscultation CARDIOVASCULAR: Regular S1 S2, GI: soft, normoactive bowel sounds, : No Renal angle tenderness; EXTREMITIES: No edema, no clubbing, MUSCULOSKELETAL: no muscle waisting NEURO: Sedated on the vent SKIN: No Rash P Assessment & Plan Assessment/Plan (1) Pneumonia due to COVID-19 virus: (2) Acute respiratory failure with hypoxia: PLAN: Patient is a 60-year-old lady unvaccinated against COVID-19 pneumonia presented with progressive shortness of breath. An assessment of acute hypoxic respiratory failure secondary to COVID-19 made. Patient was initially managed on a regular nursing floor transfer to the intensive care unit due to rapid deterioration in her clinical condition 1. Acute hypoxic respiratory failure Is secondary to COVID-19 pneumonia strep pneumonia. Patient was transferred from regular nursing floor to the ICU due to rapidly deteriorating respiratory status. Patient apparently did not tolerate BiPAP but is okay with intubation ?04/19/2021;Patient remains on high flow oxygen via Airvo. Apparently did not tolerate BiPAP. Patient was seen in consultation by infectious disease. Baricitinib added to patient treatment regimen -04/20/2021 Patient seen remains in the ICU. Remains on Airvo with flow of 60 L/min and FiO2 of 92% in addition to 100% nonrebreather. Patient still declines BiPAP -04/21/2021;Patient was intubated due to deteriorating respiratory status 2. COVID-19 pneumonia ?Patient managed on dexamethasone and remdesivir. Patient may be a candidate for baricitinib due to her rapidly deteriorating oxygen saturation. Consult placed to ID to initiate baricitinib 3. Streptococcal pneumonia ?Patient blood cultures grew Streptococcus mitis. Ceftriaxone added to patient's therapy 4. Diabetes mellitus type II -patient's oral hypoglycemics held. Placed on long acting insulin, Accu-Cheks a.c. and at bedtime and covered with sliding scale insulin 5. Hypertension - Blood pressure controlled, home medications continued with dose adjustment as needed 6. Dyslipidemia -Patient is on statin therapy, continued at home dose 7. Acute kidney injury ?Creatinine on admission was 1.76 down to 1.24. Do suspect some chronicity we will continue with monitoring 8. DVT prophylaxis ?Lovenox Charges/Coding Visit Charges Inpatient E&M: 87061 [facility] Hosp L3
[2021-04-21] MEDS: Midazolam 2 MG/2 ML Syringe 4 MG IV (07:42)
[2021-04-21] MEDS: Etomidate 20 MG/10 ML Vial IV (07:42)
[2021-04-21] MEDS: Succinylcholine Chloride 200 MG/10 ML Vial 100 MG IV (07:44)
[2021-04-21] MEDS: Propofol 10MG/Ml 1,000 MG/100 ML Bottle 7.4 MG CONT INF (07:45)
--- NOTE | 2021-04-21 07:45 | RAD_ITS ---
STUDY: X-RAY CHEST REASON FOR EXAM: Female, 60 years old. Intubation. TECHNIQUE: Single AP portable view of the chest. COMPARISON: Comparison is made with prior study dated 04/15/2021. FINDINGS: The tip of the endotracheal tube is in the proximal right mainstem bronchus. This should be pulled back approximately 3 cm. The tip of the orogastric tube is in the body of the stomach. EKG electrodes are seen. Decreased inspiratory effort. There now is evidence of bilateral pulmonary infiltrates worse at the left lung base. There is no demonstrated pleural abnormality. Normal size heart. Normal mediastinum and alison. Normal visualized pulmonary arteries. Normal visualized aortic arch and descending thoracic aorta. Normal visualized thoracic spine. Normal visualized ribs, clavicles, and shoulders. There is no demonstrated abnormality of the visualized soft tissue structures of the upper abdomen. RAD/Chest 1 View (Portable) IMPRESSION: The tip of the endotracheal tube is at the origin of the right mainstem bronchus. This should be pulled back approximately 3 cm Progressive bilateral pulmonary infiltrates worse at the left lung base. Electronically Signed: Montez Jiménez MD at 8:40 EST , Service support ,
--- NOTE | 2021-04-21 07:50 | NURSING ---
0740- Dr Nation at head of bed for intubation, Shavon Stein, RN & Jenny, RT at bedside. 0742- Versed 4mg IV push given, Etomidate 20mg IV push given 0744- succ 100mg IV push given 0745- 7.5 ETT, #23 at the lip, (+) color change, b/l breath sounds.
[2021-04-21 08:46] LABS: Bedside Glucose 76 mg/dL (70-110)
[2021-04-21 09:35] LABS: CPK Total, Creatine Kinase 34 U/L (26-192); Triglycerides 91 mg/dL
[2021-04-21] MEDS: Enoxaparin 30 MG/0.3 ML Syringe SC ×2 (09:52→21:21)
[2021-04-21] MEDS: dexAMETHasone 4 MG Tablet 6 MG PO (09:52)
[2021-04-21 10:01] LABS: Allen Test Positive; Base Excess -1 mmol/L (-2 to +2); Bicarbonate 23.4 mmol/L (22-26); Blood Gas Specimen Type ART; FI02 100; Mode AC; O2 Delivery Device ET Tube; PEEP 5; PO2 137 mmHG (75-100); RR 14; SITE R Radial; SO2 99 % (95-99); Total Carbon Dioxide 24 mmol/L; Vt 400; pCO2 34.2 mmHg (35-45); pH 7.44 (7.35-7.45)
[2021-04-21 11:30] LABS: Bedside Glucose 76 mg/dL (70-110)
[2021-04-21] MEDS: Propofol 10MG/Ml 1,000 MG/100 ML Bottle 3.7 MG CONT INF (13:25)
[2021-04-21] MEDS: Vital AF 1.2 Cal Liquid 1,000 ML 55 ML GT (14:08)
[2021-04-21] MEDS: CHLORHEXIDINE GLUC 2% CLOTH 1 EACH TOWELETTE TOPICAL (14:18)
[2021-04-21] MEDS: Insulin Lispro 100 UNIT/ML INSULN.PEN SC ×2 (16:01→21:20)
[2021-04-21 17:31] LABS: Bedside Glucose 172 mg/dL (70-110)
[2021-04-21] MEDS: Chlorhexidine 15 ML PO (20:34)
[2021-04-21 21:30] LABS: Bedside Glucose 242 mg/dL (70-110)
[2021-04-22] VITALS (35 sets, daily range): BP systolic 81–172; BP diastolic 61–97; PULSE 53–127; RESP 14–22; TEMP 36.6–37.4; O2SAT 88–98
[2021-04-22 03:35] LABS: Absolute Lymphocyte Count 0.61 X10^3/uL (0.83-4.51); Absolute Neutrophil Count 5.6 X10^3/uL (2.0-7.7); Basophil# 0.02 X10^3/uL; Basophil% 0.3 % (0-1); Eosinophil# 0.01 X10^3/uL; Eosinophils% 0.1 % (0-5); Hematocrit 37.8 % (37-47); Hemoglobin 11.6 g/dL (12.0-15.0); Lymphocyte # 0.61 X10^3/ul (0.83-4.51); Lymphocyte % 8.8 % (19-41); Mean Corp Hgb Conc 30.7 g/dL (32-36); Mean Corpuscular Hgb 26.7 pg (27.0-32.0); Mean Corpuscular Volume 87.1 fL (81-99); Mean Platelet Vol. 10.3 fl (6.2-12.0); Monocyte# 0.34 X10^3/uL; Monocyte% 4.9 % (0-10); NRBC Flagged by Analyzer 0 % (0-5); Neutrophil # 5.64 X10^3/uL (2.7-7.7); Neutrophil % 81.6 % (47-70); Platelet Count 224 K/mm3 (150-450); RBC Distribution Width CV 13.6 % (11.6-14.6); RBC Distribution Width SD 43.4 fl (35.1-43.9); Red Blood Count 4.34 M/mm3 (4.2-5.4); White Blood Count 6.9 K/mm3 (4.4-11.0)
[2021-04-22 04:32] LABS: ALB/GLOB Ratio 0.5 RATIO (0.9-2.4); AST(SGOT) 25 U/L (15-37); Alanine Aminotransfer ALT/SGPT 29 U/L (13-56); Albumin, Serum 2.2 g/dL (3.2-5.0); Alkaline Phosphatase 96 U/L (45-117); Anion Gap 9 (5-15); BUN 64 mg/dL (7-18); BUN/Creat Ratio 47.1 RATIO (10-20); Calcium,Total 8.9 mg/dL (8.5-10.1); Chloride 106 mmol/L (98-107); Creatinine, Serum 1.36 mg/dL (0.55-1.02); EST Glomerular Filtration Rate 42 mL/min (>60); Est Glom Filt Rate - Afr Amer 51 mL/min (>60); Estimated Creatinine Clearance 35.93 ml/min; Globulin 4.5 g/dL (2.2-4.2); Glucose 299 mg/dL (74-106); Potassium 4.7 mmol/L (3.5-5.1); Protein, Total 6.7 g/dL (6.4-8.2); Sodium Level 139 mmol/L (136-145)
--- NOTE | 2021-04-22 06:15 | PN.CC_ITS ---
Assessment & Plan Assessment/Plan (1) Acute respiratory failure with hypoxia: (2) Pneumonia due to COVID-19 virus: PLAN: RECOMMENDATIONS: 1. Continue assist control mode mechanical ventilation. Wean FiO2/PEEP for saturations greater than 90%. 2. Continue antimicrobials as ordered. 3. Continue tube feeds as tolerated. 4. Continue prophylactic Lovenox, Decadron and baricitinib. 5. Continue appropriate GI prophylaxis. 6. Continue to hold diuretics in light of AJCKY. IMPRESSIONS: 1. Acute hypoxemic respiratory failure secondary to COVID-19 pneumonia The patient initially presented to the hospital on April 15 with worsening sh ortness of breath and cough. She was subsequently found to be positive for COVID-19 pneumonia. CTA showed no evidence for pulmonary embolism. The patient was placed on antimicrobials, Decadron and remdesivir. Unfortunately, she continued to decompensate from a respiratory perspective, ultimately requiring transfer to the ICU and intubation on April 21. The patient will be continued on baricitinib per ID recommendations. Diuretics will be utilized intermittently to maintain euvolemic state. Tube feeds will be continued as tolerated. 2. Acute kidney injury Likely prerenal in etiology and related to #1. Continue to monitor urine output for now. No current indication for renal replacement therapy. Continue to hold diuretics in light of JACKY. 3. Diabetes mellitus/hypertension/hyperlipidemia Complicates care, management, recovery and prognosis. Continue Lantus and sliding scale insulin coverage. TIME: 35 minutes of critical care time, independent of procedures, was spent addressing the patient's acute hypoxemic respiratory failure secondary to COVID- 19 pneumonia, acute kidney injury, review of all data and collaboration with the care team. Subjective Subjective The patient was seen and examined at the bedside this morning. Events from the last 24 hours have been reviewed. The patient is currently afebrile and hemo dynamically stable. She is maintaining appropriate oxygen saturations on assist control with an FiO2 of 60% and PEEP of 5. She is currently sedated on propofol and fentanyl. The patient is tolerating tube feeds. She is currently documented to be overall net +1.6 L for the hospitalization. The patient has completed her treatment course of remdesivir and remains on antimicrobials, prophylactic Lovenox, Decadron and baricitinib. Creatinine has increased slightly to 1.36. Blood sugar is elevated at 300. Objective Data Objective Data The patient's most recent lab work, culture data and imaging studies have all been personally reviewed. Rapid coronavirus antigen testing was positive on April 15. Sputum culture is pending. Vital Signs: Vital Signs Temp Pulse Resp BP Pulse Ox 98.4 F 55 L 14 133/82 H 98 04/22/21 04:00 04/22/21 06:00 04/22/21 06:00 04/22/21 06:00 04/22/21 06:00 Oxygen Flow Rate (L/min) 60 Oxygen Delivery Method Mechanical Ventilator Weight: 62.9 kg Body Mass Index (BMI) 25.2 Intake & Output: Intake and Output for Last 24 Hours 04/20/21 04/21/21 04/22/21 23:59 23:59 23:59 Intake Total 420 / 420 553.08 / 701.78 289.65 / 289.65 Output Total 1150 / 1150 250 / 300 50 / 50 Balance -730 / -730 303.08 / 401.78 239.65 / 239.65 Lab / Micro Data Attestation: I reviewed the patient's lab results. Result Diagrams: 04/22/21 03:20 04/22/21 03:20 Labs: Laboratory Results - last 24 hr 04/21/21 05:00: Total Creatine Kinase 34, Triglycerides 91 04/21/21 08:40: POC Glucose 76 04/21/21 11:20: POC Glucose 76 04/21/21 16:01: POC Glucose 172 H 04/21/21 21:19: POC Glucose 242 H 04/22/21 03:20: WBC 6.9, RBC 4.34, Hgb 11.6 L, Hct 37.8, MCV 87.1, MCH 26.7 L, MCHC 30.7 L, RDW Std Deviation 43.4, RDW Coeff of Carlos Enrique 13.6, Plt Count 224, MPV 10.3, Immature Gran % (Auto) 4.300 H, Neut % (Auto) 81.6 H, Lymph % (Auto) 8.8 L , [place] % (Auto) 4.9, Eos % (Auto) 0.1, Baso % (Auto) 0.3, Absolute Neuts (auto) 5.6, Absolute Lymphs (auto) 0.61 L, Nucleated RBC % 0 04/22/21 03:20: Sodium 139, Potassium 4.7, Chloride 106, Carbon Dioxide 24.0, Anion Gap 9, BUN 64 H, Creatinine 1.36 H, Estim Creat Clear Calc 35.93, Est GFR (MDRD) Af Amer 51 L, Est GFR (MDRD) Non-Af 42 L, BUN/Creatinine Ratio 47.1 H, Glucose 299 H, Calcium 8.9, Total Bilirubin 0.30, AST 25, ALT 29, Alkaline Phosphatase 96, Total Protein 6.7, Albumin 2.2 L, Globulin 4.5 H, Albumin/Globulin Ratio 0.5 L Micro: Microbiology 04/17/21 18:00 Blood Culture (Wb) - Anticubital Left Blood Culture - Preliminary No growth in 48 hours. 04/15/21 01:50 Blood Culture (Wb) #2 - Anticubital Right Bacteria Detection (PCR) - Final Strep not Strep pneumo 04/15/21 01:50 Blood Culture (Wb) #2 - Anticubital Right Blood Culture - Final Streptococcus mitis/ oralis 04/15/21 01:35 Blood Culture (Wb) - Anticubital Left Blood Culture - Final No growth in 5 days. 04/18/21 08:50 Urine, Random Legionella Antigen - Final 04/18/21 08:50 Urine, Random Streptococcus pneumoniae Antigen (M - Final 04/15/21 01:45 Mucosa - Nose Influenza Types A,B Direct FA (ERIK) - Final 04/15/21 01:45 Nasal Secretion SARS-CoV-2 Antigen (Rapid) - Final SARS-CoV-2 (COVID 19) ABG Data ABG results: ABG 04/21/21 09:50 Specimen Type ART Sample Site R Radial pH 7.44 Bicarbonate Actual 23.4 Total CO2 24 Base Excess -1 O2 Saturation 99 O2 % 100 ABG pCO2 34.2 L ABG pO2 137 H Boris Test Positive Respiration Rate 14 O2 Delivery Device ET Tube Vent Mode AC Tidal Volume 400 POC PEEP 5 Radiography Diagnostic Testing: Radiology Impression Chest X-Ray 04/21/21 07:45 IMPRESSION: The tip of the endotracheal tube is at the origin of the right mainstem bronchus. This should be pulled back approximately 3 cm Progressive bilateral pulmonary infiltrates worse at the left lung base. Electronically Signed: Montez Jiménez MD at 8:40 EST , Service support , Physical Exam Const no apparent distress Constitutional Narrative: No ventilator dyssynchrony. General Appearance: intubated and patient mechanically ventilated HEENT normocephalic and head/scalp atraumatic Mouth: endotracheal tube in place and OG tube in place Eyes PERRL, EOMs intact bilaterally and conjunctivae normal Neck supple General: trachea midline Chest inspection of chest normal Resp Auscultation: diminished lung sounds Cardio regular rate and regular rhythm GI normal to inspection, nondistended, normoactive bowel sounds Extremity no clubbing, cyanosis or edema Skin no rashes or lesions noted Neuro Neuro Narrative: Alert and able to follow simple commands. Sensorium / Orientation: sedated on vent Charges/Coding Procedures Hospitalists Procedures: 02206 Critial Care 1st Hr
[2021-04-22] MEDS: Insulin Lispro 100 UNIT/ML INSULN.PEN SC ×4 (06:23→21:24)
[2021-04-22] MEDS: Menthol/Lanolin/Calamine/Znox 113 GM Tube 1 APPLIC TOPICAL ×2 (06:24→21:13)
[2021-04-22 06:30] LABS: Bedside Glucose 298 mg/dL (70-110)
[2021-04-22] MEDS: Albuterol 2.5 MG/3 ML VIAL.NEB. INHALATION ×3 (06:43→19:10)
--- NOTE | 2021-04-22 07:27 | PN.HOSP_ITS ---
Subjective Subjective Patient was intubated the day prior in view of worsening respiratory status. Seen this a.m. remains stable on the vent. Current vent settings FiO2 of 60% PEEP of 5 on assist control. Objective Data Objective Data Vital Signs: Vital Signs Temp Pulse Resp BP Pulse Ox 98.4 F 99 16 118/77 95 04/22/21 04:00 04/22/21 07:00 04/22/21 07:00 04/22/21 07:00 04/22/21 07:00 Oxygen Flow Rate (L/min) 60 Oxygen Delivery Method Mechanical Ventilator Weight: 62.9 kg Body Mass Index (BMI) 25.2 Intake & Output: Intake and Output for Last 24 Hours 04/20/21 04/21/21 04/22/21 23:59 23:59 23:59 Intake Total 420 / 420 553.08 / 701.78 308.35 / 308.35 Output Total 1150 / 1150 250 / 300 225 / 225 Balance -730 / -730 303.08 / 401.78 83.35 / 83.35 Lab / Micro Data Result Diagrams: 04/22/21 03:20 04/22/21 03:20 Labs: Laboratory Results - last 24 hr 04/21/21 05:00: Total Creatine Kinase 34, Triglycerides 91 04/21/21 08:40: POC Glucose 76 04/21/21 11:20: POC Glucose 76 04/21/21 16:01: POC Glucose 172 H 04/21/21 21:19: POC Glucose 242 H 04/22/21 03:20: WBC 6.9, RBC 4.34, Hgb 11.6 L, Hct 37.8, MCV 87.1, MCH 26.7 L, MCHC 30.7 L, RDW Std Deviation 43.4, RDW Coeff of Carlos Enrique 13.6, Plt Count 224, MPV 10.3, Immature Gran % (Auto) 4.300 H, Neut % (Auto) 81.6 H, Lymph % (Auto) 8.8 L , [place] % (Auto) 4.9, Eos % (Auto) 0.1, Baso % (Auto) 0.3, Absolute Neuts (auto) 5.6, Absolute Lymphs (auto) 0.61 L, Nucleated RBC % 0 04/22/21 03:20: Sodium 139, Potassium 4.7, Chloride 106, Carbon Dioxide 24.0, Anion Gap 9, BUN 64 H, Creatinine 1.36 H, Estim Creat Clear Calc 35.93, Est GFR (MDRD) Af Amer 51 L, Est GFR (MDRD) Non-Af 42 L, BUN/Creatinine Ratio 47.1 H, Glucose 299 H, Calcium 8.9, Total Bilirubin 0.30, AST 25, ALT 29, Alkaline Phosphatase 96, Total Protein 6.7, Albumin 2.2 L, Globulin 4.5 H, Albumin/Globulin Ratio 0.5 L 04/22/21 06:21: POC Glucose 298 H Micro: Microbiology 04/17/21 18:00 Blood Culture (Wb) - Anticubital Left Blood Culture - Preliminary No growth in 48 hours. 04/15/21 01:50 Blood Culture (Wb) #2 - Anticubital Right Bacteria Detection (PCR) - Final Strep not Strep pneumo 04/15/21 01:50 Blood Culture (Wb) #2 - Anticubital Right Blood Culture - Final Streptococcus mitis/ oralis 04/15/21 01:35 Blood Culture (Wb) - Anticubital Left Blood Culture - Final No growth in 5 days. 04/18/21 08:50 Urine, Random Legionella Antigen - Final 04/18/21 08:50 Urine, Random Streptococcus pneumoniae Antigen (M - Final 04/15/21 01:45 Mucosa - Nose Influenza Types A,B Direct FA (ERIK) - Final 04/15/21 01:45 Nasal Secretion SARS-CoV-2 Antigen (Rapid) - Final SARS-CoV-2 (COVID 19) ABG Data ABG results: ABG 04/21/21 09:50 Specimen Type ART Sample Site R Radial pH 7.44 Bicarbonate Actual 23.4 Total CO2 24 Base Excess -1 O2 Saturation 99 O2 % 100 ABG pCO2 34.2 L ABG pO2 137 H Boris Test Positive Respiration Rate 14 O2 Delivery Device ET Tube Vent Mode AC Tidal Volume 400 POC PEEP 5 Radiography Diagnostic Testing: Radiology Impression Chest X-Ray 04/21/21 07:45 IMPRESSION: The tip of the endotracheal tube is at the origin of the right mainstem bronchus. This should be pulled back approximately 3 cm Progressive bilateral pulmonary infiltrates worse at the left lung base. Electronically Signed: Montez Jiménez MD at 8:40 EST , Service support , Physical Exam Narrative GENERAL: Awake on the vent on the vent HEENT: Atraumatic; EYES; Anicteric, Normal Conjunctiva NECK; supple, normal thyroid, RESPIRATORY: Diminished to auscultation CARDIOVASCULAR: Regular S1 S2, GI: soft, normoactive bowel sounds, : No Renal angle tenderness; EXTREMITIES: No edema, no clubbing, MUSCULOSKELETAL: no muscle waisting NEURO: Awake on the vent on the vent SKIN: No Rash Assessment & Plan Assessment/Plan (1) Pneumonia due to COVID-19 virus: (2) Acute respiratory failure with hypoxia: PLAN: Patient is a 60-year-old lady unvaccinated against COVID-19 pneumonia presented with progressive shortness of breath. An assessment of acute hypoxic respiratory failure secondary to COVID-19 made. Patient was initially managed on a regular nursing floor transfer to the intensive care unit due to rapid deterioration in her clinical condition 1. Acute hypoxic respiratory failure Is secondary to COVID-19 pneumonia strep pneumonia. Patient was transferred from regular nursing floor to the ICU due to rapidly deteriorating respiratory status. Patient apparently did not tolerate BiPAP but is okay with intubation ?04/19/2021;Patient remains on high flow oxygen via Airvo. Apparently did not tolerate BiPAP. Patient was seen in consultation by infectious disease. Baricitinib added to patient treatment regimen -04/20/2021 Patient seen remains in the ICU. Remains on Airvo with flow of 60 L/min and FiO2 of 92% in addition to 100% nonrebreather. Patient still declines BiPAP -04/21/2021;Patient was intubated due to deteriorating respiratory status Seen this a.m. remains stable on the vent. Current vent settings FiO2 of 60% PEEP of 5 on assist control 2. COVID-19 pneumonia ?Patient managed on dexamethasone and remdesivir. Patient may be a candidate for baricitinib due to her rapidly deteriorating oxygen saturation. Consult placed to ID to initiate baricitinib 3. Streptococcal pneumonia ?Patient blood cultures grew Streptococcus mitis. Ceftriaxone added to clarice russell's therapy 4. Diabetes mellitus type II -patient's oral hypoglycemics held. Placed on long acting insulin, Accu-Cheks a.c. and at bedtime and covered with sliding scale insulin 5. Hypertension - Blood pressure controlled, home medications continued with dose adjustment as needed 6. Dyslipidemia -Patient is on statin therapy, continued at home dose 7. Acute kidney injury ?Creatinine on admission was 1.76 down to 1.24. Do suspect some chronicity we will continue with monitoring -04/22/2021; kidney function remains stable. 8. DVT prophylaxis ?Lovenox Charges/Coding Visit Charges Inpatient E&M: 11396 Subs Hosp L3
[2021-04-22] MEDS: dexAMETHasone 4 MG Tablet 6 MG PO (07:59)
[2021-04-22] MEDS: Enoxaparin 30 MG/0.3 ML Syringe SC ×2 (08:00→21:14)
[2021-04-22] MEDS: Chlorhexidine 15 ML PO ×2 (08:04→21:13)
[2021-04-22 10:03] LABS: Pathologist Review Reviewed
[2021-04-22 10:30] LABS: Bedside Glucose 319 mg/dL (70-110)
[2021-04-22] MEDS: Propofol 10MG/Ml 1,000 MG/100 ML Bottle 3.7 MG CONT INF (11:27)
--- NOTE | 2021-04-22 16:23 | PCM.RX.CS ---
Consult Pharmacy has been consulted to manage selected antiobiotic: Vancomycin Suspected Infection: Pneumonia Labs: Sodium 139 mmol/L (136-145) 04/22/21 03:20 Potassium 4.7 mmol/L (3.5-5.1) 04/22/21 03:20 Chloride 106 mmol/L (98-107) 04/22/21 03:20 Carbon Dioxide 24.0 mmol/L (21.0-32.0) 04/22/21 03:20 Anion Gap 9 (5-15) 04/22/21 03:20 BUN 64 mg/dL (7-18) H 04/22/21 03:20 Creatinine 1.36 mg/dL (0.55-1.02) H 04/22/21 03:20 Est GFR (MDRD) Af Amer 51 mL/min (>60) L 04/22/21 03:20 Est GFR (MDRD) Non-Af 42 mL/min (>60) L 04/22/21 03:20 BUN/Creatinine Ratio 47.1 RATIO (10-20) H 04/22/21 03:20 Glucose 299 mg/dL (74-106) H 04/22/21 03:20 Microbiology: Microbiology 04/21/21 08:15 Sputum, Induced/Lukens Gram Stain - Final 04/21/21 08:15 Sputum, Induced/Lukens Respiratory Culture - Preliminary Staphylococcus aureus 04/17/21 18:00 Blood Culture (Wb) - Anticubital Left Blood Culture - Preliminary No growth in 48 hours. 04/15/21 01:50 Blood Culture (Wb) #2 - Anticubital Right Bacteria Detection (PCR) - Final Strep not Strep pneumo 04/15/21 01:50 Blood Culture (Wb) #2 - Anticubital Right Blood Culture - Final Streptococcus mitis/ oralis 04/15/21 01:35 Blood Culture (Wb) - Anticubital Left Blood Culture - Final No growth in 5 days. 04/18/21 08:50 Urine, Random Legionella Antigen - Final 04/18/21 08:50 Urine, Random Streptococcus pneumoniae Antigen (M - Final 04/15/21 01:45 Mucosa - Nose Influenza Types A,B Direct FA (ERIK) - Final 04/15/21 01:45 Nasal Secretion SARS-CoV-2 Antigen (Rapid) - Final SARS-CoV-2 (COVID 19) Pharmacy Plan for Drug Dosing: NEW START IV VANCOMYCIN Consulting Physician: GERTRUDE Indication: PNEUMONIA Goal Trough: 15-20 MG/DL SrCr: 1.36 MG/DL CrCl: 35.9 ML/MIN Comments: LOADING DOSE OF 1500MG X1 GIVEN 04/22 @ 1616 Vancomycin Dose: START 750MG Q24 04/23 @ 1600 AND GET A TROUGH PRIOR TO 3RD TOTAL DOSE OF REGIMEN PER POLICY. Pending Level: 04/24/21 @ 1530 Pharmacy Service will continue to monitor and adjust dosing as required.
[2021-04-22 17:30] LABS: Bedside Glucose 374 mg/dL (70-110)
[2021-04-22 17:30] LABS: Bedside Glucose 394 mg/dL (70-110)
[2021-04-22] MEDS: Vital AF 1.2 Cal Liquid 1,000 ML 55 ML GT (21:16)
[2021-04-22 21:45] LABS: Bedside Glucose 347 mg/dL (70-110)
[2021-04-23] VITALS (39 sets, daily range): BP systolic 72–183; BP diastolic 55–119; PULSE 54–149; RESP 14–49; TEMP 36.8–37.6; O2SAT 88–100
[2021-04-23] MEDS: Propofol 10MG/Ml 1,000 MG/100 ML Bottle 3.7 MG CONT INF (00:30)
[2021-04-23] MEDS: Menthol/Lanolin/Calamine/Znox 113 GM Tube 1 APPLIC TOPICAL ×3 (05:16→22:10)
[2021-04-23] MEDS: Insulin Lispro 100 UNIT/ML INSULN.PEN SC ×3 (05:17→22:23)
[2021-04-23 05:21] LABS: Absolute Lymphocyte Count 1.11 X10^3/uL (0.83-4.51); Absolute Neutrophil Count 9.5 X10^3/uL (2.0-7.7); Basophil# 0.02 X10^3/uL; Basophil% 0.2 % (0-1); Eosinophil# 0.02 X10^3/uL; Eosinophils% 0.2 % (0-5); Hematocrit 38.5 % (37-47); Hemoglobin 12.3 g/dL (12.0-15.0); Lymphocyte # 1.11 X10^3/ul (0.83-4.51); Lymphocyte % 9.4 % (19-41); Mean Corp Hgb Conc 31.9 g/dL (32-36); Mean Corpuscular Hgb 26.9 pg (27.0-32.0); Mean Corpuscular Volume 84.2 fL (81-99); Mean Platelet Vol. 10.6 fl (6.2-12.0); Monocyte# 0.61 X10^3/uL; Monocyte% 5.2 % (0-10); NRBC Flagged by Analyzer 0 % (0-5); Neutrophil # 9.53 X10^3/uL (2.7-7.7); Neutrophil % 80.8 % (47-70); Platelet Count 256 K/mm3 (150-450); RBC Distribution Width CV 13.7 % (11.6-14.6); RBC Distribution Width SD 42.3 fl (35.1-43.9); Red Blood Count 4.57 M/mm3 (4.2-5.4); White Blood Count 11.8 K/mm3 (4.4-11.0)
[2021-04-23 05:44] LABS: ALB/GLOB Ratio 0.5 RATIO (0.9-2.4); AST(SGOT) 26 U/L (15-37); Alanine Aminotransfer ALT/SGPT 29 U/L (13-56); Albumin, Serum 2.6 g/dL (3.2-5.0); Alkaline Phosphatase 101 U/L (45-117); Anion Gap 7 (5-15); BUN 50 mg/dL (7-18); BUN/Creat Ratio 44.6 RATIO (10-20); Calcium,Total 9.6 mg/dL (8.5-10.1); Chloride 109 mmol/L (98-107); Creatinine, Serum 1.12 mg/dL (0.55-1.02); EST Glomerular Filtration Rate 53 mL/min (>60); Est Glom Filt Rate - Afr Amer 64 mL/min (>60); Estimated Creatinine Clearance 43.63 ml/min; Globulin 4.9 g/dL (2.2-4.2); Glucose 163 mg/dL (74-106); Potassium 3.9 mmol/L (3.5-5.1); Protein, Total 7.5 g/dL (6.4-8.2); Sodium Level 143 mmol/L (136-145)
--- NOTE | 2021-04-23 06:06 | PN.CC_ITS ---
Assessment & Plan Assessment/Plan (1) Acute respiratory failure with hypoxia: (2) Pneumonia due to COVID-19 virus: PLAN: RECOMMENDATIONS: 1. Transition patient back to assist control mode of mechanical ventilation. Obtain repeat blood gas in 1 hour. 2. Continue antimicrobials as ordered. 3. Resume tube feeds as tolerated. 4. Continue prophylactic Lovenox, Decadron and baricitinib. 5. Continue appropriate GI prophylaxis. 6. Gentle diuresis as tolerated by hemodynamics and renal function. IMPRESSIONS: 1. Acute hypoxemic respiratory failure secondary to COVID-19 pneumonia The patient initially presented to the hospital on April 15 with worsening shortness of breath and cough. She was subsequently found to be positive for COVID-19 pneumonia. CTA showed no evidence for pulmonary embolism. The patient was placed on antimicrobials, Decadron and remdesivir. Unfortunately, she continued to decompensate from a respiratory perspective, ultimately requiring transfer to the ICU and intubation on April 21. The patient will be continued on baricitinib per ID recommendations. Diuretics will be utilized intermittently to maintain euvolemic state. Tube feeds will be continued as tolerated. 2. Acute kidney injury Improved. Likely prerenal in etiology and related to #1. Continue to monitor urine output for now. No current indication for renal replacement therapy. Will continue intermittent dosing of diuretics as tolerated by hemodynamics and renal function. 3. Diabetes mellitus/hypertension/hyperlipidemia Complicates care, management, recovery and prognosis. Continue Lantus and sliding scale insulin coverage. TIME: 32 minutes of critical care time, independent of procedures, was spent addressing the patient's acute hypoxemic respiratory failure secondary to COVID- 19 pneumonia, acute kidney injury, review of all data and collaboration with the care team. Subjective Subjective The patient was seen and examined at the bedside this morning. Events from the last 24 hours have been reviewed. The patient remains afebrile and hemodynamically stable. She is currently maintaining appropriate oxygen saturations on pressure support mode of mechanical ventilation with an FiO2 requirement of 35%. She has been tolerant of tube feeds. The patient is alert and able to follow commands. She is currently documented to be overall net +2.7 L for the hospitalization. The patient has completed her treatment course of remdesivir and remains on antimicrobials, prophylactic Lovenox, Decadron and baricitinib. Creatinine is stable at 1.12. This morning, for a period of time, the patient was doing okay on a spontaneous breathing trial. However, I was then notified by nursing staff that the patient did not have reactive pupils and was not responding. Therefore, her spontaneous breathing trial was terminated and she was placed back on assist control. Stat CT head was ordered, which was negative. However, follow-up arterial blood gas revealed acute CO2 retention. The patient's ventilator was switched out and the patient is now ventilating much better on assist control. Objective Data Objective Data The patient's most recent lab work, culture data and imaging studies have all been personally reviewed. Rapid coronavirus antigen testing was positive on April 15. Sputum culture is demonstrating growth of rare staph aureus. Vital Signs: Vital Signs Temp Pulse Resp BP Pulse Ox 98.8 F 128 H 17 81/56 L 94 04/23/21 00:00 04/23/21 04:55 04/23/21 04:55 04/23/21 03:00 04/23/21 04:55 Oxygen Flow Rate (L/min) 60 Oxygen Delivery Method Mechanical Ventilator Weight: 62.9 kg Body Mass Index (BMI) 25.2 Intake & Output: Intake and Output for Last 24 Hours 04/21/21 04/22/21 04/23/21 23:59 23:59 23:59 Intake Total 553.08 / 701.78 2289.56 / 2408.26 162.36 / 162.36 Output Total 250 / 300 1075 / 1075 Balance 303.08 / 401.78 1214.56 / 1333.26 162.36 / 162.36 Lab / Micro Data Attestation: I reviewed the patient's lab results. Result Diagrams: 04/23/21 05:05 04/23/21 05:05 Labs: Laboratory Results - last 24 hr 04/21/21 05:00: Diff Path Review Reviewed 04/22/21 06:21: POC Glucose 298 H 04/22/21 10:19: POC Glucose 319 H 04/22/21 16:19: POC Glucose 374 H 04/22/21 17:28: POC Glucose 394 H 04/22/21 21:22: POC Glucose 347 H 04/23/21 05:05: WBC 11.8 H, RBC 4.57, Hgb 12.3, Hct 38.5, MCV 84.2, MCH 26.9 L, MCHC 31.9 L, RDW Std Deviation 42.3, RDW Coeff of Carlos Enrique 13.7, Plt Count 256, MPV 10.6, Immature Gran % (Auto) 4.200 H, Neut % (Auto) 80.8 H, Lymph % (Auto) 9.4 L , [place] % (Auto) 5.2, Eos % (Auto) 0.2, Baso % (Auto) 0.2, Absolute Neuts (auto) 9.5 H, Absolute Lymphs (auto) 1.11, Nucleated RBC % 0 04/23/21 05:05: Sodium 143, Potassium 3.9, Chloride 109 H, Carbon Dioxide 27.0, Anion Gap 7, BUN 50 H, Creatinine 1.12 H, Estim Creat Clear Calc 43.63, Est GFR (MDRD) Af Amer 64, Est GFR (MDRD) Non-Af 53 L, BUN/Creatinine Ratio 44.6 H, Glucose 163 H, Calcium 9.6, Total Bilirubin 0.40, AST 26, ALT 29, Alkaline Phosphatase 101, Total Protein 7.5, Albumin 2.6 L, Globulin 4.9 H, Albumin/Globulin Ratio 0.5 L Micro: Microbiology 04/21/21 08:15 Sputum, Induced/Lukens Gram Stain - Final 04/21/21 08:15 Sputum, Induced/Lukens Respiratory Culture - Preliminary Staphylococcus aureus 04/17/21 18:00 Blood Culture (Wb) - Anticubital Left Blood Culture - Preliminary No growth in 48 hours. 04/15/21 01:50 Blood Culture (Wb) #2 - Anticubital Right Bacteria Detection (PCR) - Final Strep not Strep pneumo 04/15/21 01:50 Blood Culture (Wb) #2 - Anticubital Right Blood Culture - Final Streptococcus mitis/ oralis 04/15/21 01:35 Blood Culture (Wb) - Anticubital Left Blood Culture - Final No growth in 5 days. 04/18/21 08:50 Urine, Random Legionella Antigen - Final 04/18/21 08:50 Urine, Random Streptococcus pneumoniae Antigen (M - Final 04/15/21 01:45 Mucosa - Nose Influenza Types A,B Direct FA (ERIK) - Final 04/15/21 01:45 Nasal Secretion SARS-CoV-2 Antigen (Rapid) - Final SARS-CoV-2 (COVID 19) Physical Exam Const General Appearance: in distress, ill appearing, intubated and patient mechanically ventilated HEENT normocephalic and head/scalp atraumatic Mouth: endotracheal tube in place and OG tube in place Eyes conjunctivae normal Neck supple General: trachea midline Chest inspection of chest normal Resp Effort and Inspection: tachypneic Auscultation: diminished lung sounds Cardio regular rate, S1 normal heart sound and S2 normal heart sound Rate: tachycardic GI normal to inspection, nondistended, normoactive bowel sounds Extremity no clubbing, cyanosis or edema Skin no rashes or lesions noted Neuro Neuro Narrative: Not currently responding to verbal and tactile stimulation. Charges/Coding Procedures Hospitalists Procedures: [id number] Critial Care 1st Hr
[2021-04-23 06:10] LABS: Bedside Glucose 150 mg/dL (70-110)
[2021-04-23] MEDS: Albuterol 2.5 MG/3 ML VIAL.NEB. INHALATION ×3 (06:53→19:10)
--- NOTE | 2021-04-23 07:22 | PN.HOSP_ITS ---
Subjective Subjective Patient repeat sputum cultures so far positive for staph aureus final identification and sensitivities pending. Vancomycin added to patient's therapy. Patient had to undergo stat CT during her breathing trial. She was apparently found with her pupils not reactive. Head CT however came back unremarkable Objective Data Objective Data Vital Signs: Vital Signs Temp Pulse Resp BP Pulse Ox 98.8 F 122 H 28 H 81/56 L 95 04/23/21 00:00 04/23/21 06:54 04/23/21 06:54 04/23/21 03:00 04/23/21 06:54 Oxygen Flow Rate (L/min) 60 Oxygen Delivery Method Mechanical Ventilator Weight: 62.9 kg Body Mass Index (BMI) 25.2 Intake & Output: Intake and Output for Last 24 Hours 04/21/21 04/22/21 04/23/21 23:59 23:59 23:59 Intake Total 553.08 / 701.78 2289.56 / 2408.26 162.36 / 162.36 Output Total 250 / 300 1075 / 1075 Balance 303.08 / 401.78 1214.56 / 1333.26 162.36 / 162.36 Lab / Micro Data Result Diagrams: 04/23/21 05:05 04/23/21 05:05 Labs: Laboratory Results - last 24 hr 04/21/21 05:00: Diff Path Review Reviewed 04/22/21 10:19: POC Glucose 319 H 04/22/21 16:19: POC Glucose 374 H 04/22/21 17:28: POC Glucose 394 H 04/22/21 21:22: POC Glucose 347 H 04/23/21 05:05: WBC 11.8 H, RBC 4.57, Hgb 12.3, Hct 38.5, MCV 84.2, MCH 26.9 L, MCHC 31.9 L, RDW Std Deviation 42.3, RDW Coeff of Carlos Enrique 13.7, Plt Count 256, MPV 10.6, Immature Gran % (Auto) 4.200 H, Neut % (Auto) 80.8 H, Lymph % (Auto) 9.4 L , [place] % (Auto) 5.2, Eos % (Auto) 0.2, Baso % (Auto) 0.2, Absolute Neuts (auto) 9.5 H, Absolute Lymphs (auto) 1.11, Nucleated RBC % 0 04/23/21 05:05: Sodium 143, Potassium 3.9, Chloride 109 H, Carbon Dioxide 27.0, Anion Gap 7, BUN 50 H, Creatinine 1.12 H, Estim Creat Clear Calc 43.63, Est GFR (MDRD) Af Amer 64, Est GFR (MDRD) Non-Af 53 L, BUN/Creatinine Ratio 44.6 H, Glucose 163 H, Calcium 9.6, Total Bilirubin 0.40, AST 26, ALT 29, Alkaline Phosphatase 101, Total Protein 7.5, Albumin 2.6 L, Globulin 4.9 H, Albumin/Globulin Ratio 0.5 L 04/23/21 05:15: POC Glucose 150 H Micro: Microbiology 04/21/21 08:15 Sputum, Induced/Lukens Gram Stain - Final 04/21/21 08:15 Sputum, Induced/Lukens Respiratory Culture - Preliminary Staphylococcus aureus 04/17/21 18:00 Blood Culture (Wb) - Anticubital Left Blood Culture - Preliminary No growth in 48 hours. 04/15/21 01:50 Blood Culture (Wb) #2 - Anticubital Right Bacteria Detection (PCR) - Final Strep not Strep pneumo 04/15/21 01:50 Blood Culture (Wb) #2 - Anticubital Right Blood Culture - Final Streptococcus mitis/ oralis 04/15/21 01:35 Blood Culture (Wb) - Anticubital Left Blood Culture - Final No growth in 5 days. 04/18/21 08:50 Urine, Random Legionella Antigen - Final 04/18/21 08:50 Urine, Random Streptococcus pneumoniae Antigen (M - Final 04/15/21 01:45 Mucosa - Nose Influenza Types A,B Direct FA (ERIK) - Final 04/15/21 01:45 Nasal Secretion SARS-CoV-2 Antigen (Rapid) - Final SARS-CoV-2 (COVID 19) Physical Exam Narrative GENERAL:on the vent on the vent HEENT: Atraumatic; EYES; Anicteric, Normal Conjunctiva NECK; supple, normal thyroid, RESPIRATORY: Diminished to auscultation CARDIOVASCULAR: Regular S1 S2, GI: soft, normoactive bowel sounds, : No Renal angle tenderness; EXTREMITIES: No edema, no clubbing, MUSCULOSKELETAL: no muscle waisting NEURO: on the vent on the vent SKIN: No Rash Assessment & Plan Assessment/Plan (1) Pneumonia due to COVID-19 virus: (2) Acute respiratory failure with hypoxia: PLAN: Patient is a 60-year-old lady unvaccinated against COVID-19 pneumonia presented with progressive shortness of breath. An assessment of acute hypoxic respiratory failure secondary to COVID-19 made. Patient was initially managed on a regular nursing floor transfer to the intensive care unit due to rapid deterioration in her clinical condition 1. Acute hypoxic respiratory failure Is secondary to COVID-19 pneumonia strep pneumonia. Patient was transferred from regular nursing floor to the ICU due to rapidly deteriorating respiratory status. Patient apparently did not tolerate BiPAP but is okay with intubation ?04/19/2021;Patient remains on high flow oxygen via Airvo. Apparently did not tolerate BiPAP. Patient was seen in consultation by infectious disease. Baricitinib added to patient treatment regimen -04/20/2021 Patient seen remains in the ICU. Remains on Airvo with flow of 60 L/min and FiO2 of 92% in addition to 100% nonrebreather. Patient still declines BiPAP -04/21/2021;Patient was intubated due to deteriorating respiratory status Seen this a.m. remains stable on the vent. Current vent settings FiO2 of 60% PEEP of 5 on assist control pressure support -04/23/2021: Patient remains on the vent ; currently on pressure support ventilation 2. COVID-19 pneumonia ?Patient managed on dexamethasone and remdesivir. Patient may be a candidate for baricitinib due to her rapidly deteriorating oxygen saturation. Consult pl aced to ID to initiate baricitinib 3. Streptococcal pneumonia ?Patient blood cultures grew Streptococcus mitis. Ceftriaxone added to patient's therapy 4. Superimposed staphylococcal pneumonia ?Vancomycin added to patient's therapy starting 04/22/2021 5. Diabetes mellitus type II -patient's oral hypoglycemics held. Placed on long acting insulin, Accu-Cheks a.c. and at bedtime and covered with sliding scale insulin 6. Hypertension - Blood pressure controlled, home medications continued with dose adjustment as needed 7. Dyslipidemia -Patient is on statin therapy, continued at home dose 8. Acute kidney injury ?Creatinine on admission was 1.76 down to 1.24. Do suspect some chronicity we will continue with monitoring -04/22/2021; kidney function remains stable. 9. DVT prophylaxis ?Lovenox
--- NOTE | 2021-04-23 08:10 | CT_ITS ---
We are attempting to reach an attending provider to discuss findings. An addendum with communication details will be sent when the communication is complete. EXAM: CT HEAD WITHOUT INTRAVENOUS CONTRAST CLINICAL INDICATION: Altered Mental Status TECHNIQUE: Multiple axial images were obtained of the head without intravenous contrast. This CT exam was performed using one or more of the following dose reduction techniques: automated exposure control, adjustment of the mA and/or kV according to patient size, and/or use of iterative reconstruction technique. This report was created using [employer] report [employer] technology. COMPARISON: None. FINDINGS: BRAIN AND EXTRA-AXIAL SPACES: Unremarkable. No intra- or extra-axial hemorrhage. No evidence of acute infarct. No intracranial mass or mass effect. There is preservation of the llanes/white matter interface. Posterior fossa structures are unremarkable. Ventricles are appropriate for age. No hydrocephalus. Basal cisterns are patent. BONES/JOINTS: Unremarkable. No discrete lytic or blastic abnormalities. SINUSES: Unremarkable as visualized. Clear. MASTOID AIR CELLS: Unremarkable. Clear. ORBITS: Visualized globes, extraocular muscles, optic nerves and retrobulbar fat appear unremarkable. CT/STROKE Brain/Head without Cont IMPRESSION: 1. Negative head/brain CT without intravenous contrast at this time. 2. Total ASPECTS score: 10/10. Electronically Signed: Isrrael Alfredo MD at 8:45 EST , Service support ,
[2021-04-23] MEDS: Enoxaparin 30 MG/0.3 ML Syringe SC ×2 (08:13→22:11)
[2021-04-23] MEDS: dexAMETHasone 4 MG Tablet 6 MG PO (08:13)
[2021-04-23 09:11] LABS: Allen Test Negative; Base Excess 0 mmol/L (-2 to +2); Bicarbonate 32.8 mmol/L (22-26); Blood Gas Specimen Type ART; FI02 75; O2 Delivery Device Adult Vent; PO2 90 mmHG (75-100); PS 5; RR 14; SITE L Radial; SO2 86 % (95-99); Total Carbon Dioxide 38 mmol/L; pH 6.92 (7.35-7.45)
[2021-04-23] MEDS: Chlorhexidine 15 ML PO ×2 (09:11→22:10)
[2021-04-23] MEDS: Furosemide 40 MG/4 ML Vial IV (09:11)
--- NOTE | 2021-04-23 09:12 | CPS ---
DR. RENEE NOTIFIED ABOUT ABG RESULTS.
[2021-04-23] MEDS: TITRATION PARAMETER CHANGE 1 EACH IV (10:22)
[2021-04-23 11:01] LABS: Allen Test Positive; Base Excess -1 mmol/L (-2 to +2); Blood Gas Specimen Type ART; FI02 50; Mode AC; O2 Delivery Device Adult Vent; PEEP 5; PO2 66 mmHG (75-100); RR 16; SITE L Radial; SO2 92 % (95-99); Total Carbon Dioxide 25 mmol/L; Vt 400; pH 7.39 (7.35-7.45)
[2021-04-23 11:13] LABS: pCO2 160.7 mmHg (35-45)
[2021-04-23 11:20] LABS: Bedside Glucose 99 mg/dL (70-110)
[2021-04-23] MEDS: Propofol 10MG/Ml 1,000 MG/100 ML Bottle 3.8 MG CONT INF (13:23)
[2021-04-23 16:35] LABS: Bedside Glucose 221 mg/dL (70-110)
[2021-04-23] MEDS: Vital AF 1.2 Cal Liquid 1,000 ML 55 ML GT (22:13)
[2021-04-23 23:15] LABS: Bedside Glucose 403 mg/dL (70-110)
[2021-04-24] VITALS (36 sets, daily range): BP systolic 75–142; BP diastolic 48–108; PULSE 61–107; RESP 14–20; TEMP 37.1–38.1; O2SAT 91–98
[2021-04-24 04:19] LABS: Absolute Lymphocyte Count 0.41 X10^3/uL (0.83-4.51); Absolute Neutrophil Count 6.9 X10^3/uL (2.0-7.7); Basophil# 0.01 X10^3/uL; Basophil% 0.1 % (0-1); Hematocrit 32.3 % (37-47); Hemoglobin 10.2 g/dL (12.0-15.0); Lymphocyte # 0.41 X10^3/ul (0.83-4.51); Lymphocyte % 5.2 % (19-41); Mean Corp Hgb Conc 31.6 g/dL (32-36); Mean Corpuscular Hgb 26.6 pg (27.0-32.0); Mean Corpuscular Volume 84.1 fL (81-99); Mean Platelet Vol. 10.8 fl (6.2-12.0); Monocyte# 0.36 X10^3/uL; Monocyte% 4.6 % (0-10); NRBC Flagged by Analyzer 0 % (0-5); Neutrophil # 6.93 X10^3/uL (2.7-7.7); Neutrophil % 88.8 % (47-70); POSITIVE DIFFERENTIAL YES; Platelet Count 210 K/mm3 (150-450); RBC Distribution Width CV 13.9 % (11.6-14.6); RBC Distribution Width SD 42.9 fl (35.1-43.9); Red Blood Count 3.84 M/mm3 (4.2-5.4); White Blood Count 7.8 K/mm3 (4.4-11.0)
[2021-04-24 04:21] LABS: ALB/GLOB Ratio 0.5 RATIO (0.9-2.4); AST(SGOT) 32 U/L (15-37); Alanine Aminotransfer ALT/SGPT 33 U/L (13-56); Albumin, Serum 1.9 g/dL (3.2-5.0); Alkaline Phosphatase 82 U/L (45-117); Anion Gap 7 (5-15); BUN 60 mg/dL (7-18); BUN/Creat Ratio 47.2 RATIO (10-20); Calcium,Total 9.1 mg/dL (8.5-10.1); Chloride 109 mmol/L (98-107); Creatinine, Serum 1.27 mg/dL (0.55-1.02); EST Glomerular Filtration Rate 45 mL/min (>60); Est Glom Filt Rate - Afr Amer 55 mL/min (>60); Estimated Creatinine Clearance 38.48 ml/min; Globulin 4.2 g/dL (2.2-4.2); Glucose 300 mg/dL (74-106); Protein, Total 6.1 g/dL (6.4-8.2); Sodium Level 142 mmol/L (136-145)
[2021-04-24 04:32] LABS: Differential Indicated SCAN CRITERIA MET
[2021-04-24 05:18] LABS: Differential Comment SCANNED
[2021-04-24] MEDS: TITRATION PARAMETER CHANGE 1 EACH IV (05:34)
--- NOTE | 2021-04-24 06:16 | PN.CC_ITS ---
Assessment & Plan Assessment/Plan (1) Acute respiratory failure with hypoxia: (2) Pneumonia due to COVID-19 virus: PLAN: RECOMMENDATIONS: 1. Proceed with a trial of extubation. Once extubated, wean supplemental oxygen for saturations greater than 90%. 2. Continue antimicrobials as ordered. 3. Bedside swallow evaluation and advance diet accordingly. 4. Continue prophylactic Lovenox, Decadron and baricitinib. 5. Continue appropriate GI prophylaxis. 6. Gentle diuresis as tolerated by hemodynamics and renal function. IMPRESSIONS: 1. Acute hypoxemic respiratory failure secondary to COVID-19 pneumonia The patient initially presented to the hospital on April 15 with worsening shortness of breath and cough. She was subsequently found to be positive for COVID-19 pneumonia. CTA showed no evidence for pulmonary embolism. The patient was placed on antimicrobials, Decadron and remdesivir. Unfortunately, she continued to decompensate from a respiratory perspective, ultimately requiring transfer to the ICU and intubation on April 21. The patient will be continued on baricitinib per ID recommendations. Diuretics will be utilized intermittently to maintain euvolemic state. Given that the patient passed her spontaneous breathing trial this morning, will proceed with a trial of extubation. Once extubated, supplemental oxygen will be weaned to maintain saturations at or above 90%. 2. Acute kidney injury Improved. Likely prerenal in etiology and related to #1. Continue to monitor urine output for now. No current indication for renal replacement therapy. Will continue intermittent dosing of diuretics as tolerated by hemodynamics and renal function. 3. Diabetes mellitus/hypertension/hyperlipidemia Complicates care, management, recovery and prognosis. Continue Lantus and sliding scale insulin coverage. TIME: 33 minutes of critical care time, independent of procedures, was spent addressing the patient's acute hypoxemic respiratory failure secondary to COVID- 19 pneumonia, acute kidney injury, review of all data and collaboration with the care team. Subjective Subjective The patient was seen and examined at the bedside this morning. Events from the last 24 hours have been reviewed. The patient is currently afebrile, hemodynamically stable and maintaining appropriate oxygen saturations on pressure support with an FiO2 requirement of 30% and PEEP of 5. The patient has reportedly done well with her spontaneous breathing trial this morning. No overnight issues were identified by the nursing staff. She is currently documented to be overall net +2.3 L for the hospitalization. Creatinine remains elevated at 1.27. She remains on antimicrobials, prophylactic Lovenox, Decadron and baricitinib. Objective Data Objective Data The patient's most recent lab work, culture data and imaging studies have all been personally reviewed. Rapid coronavirus antigen testing was positive on April 15. Sputum culture is demonstrating growth of rare staph aureus. Vital Signs: Vital Signs Temp Pulse Resp BP Pulse Ox 100.2 F H 102 H 19 H 121/82 H 96 04/24/21 04:00 04/24/21 05:04 04/24/21 05:07 04/24/21 05:00 04/24/21 05:04 Oxygen Flow Rate (L/min) 60 Oxygen Delivery Method Mechanical Ventilator Weight: 64.4 kg Body Mass Index (BMI) 25.2 Intake & Output: Intake and Output for Last 24 Hours 04/22/21 04/23/21 04/24/21 23:59 23:59 23:59 Intake Total 2289.56 / 2408.26 1180.92 / 1192.82 59.5 / 59.5 Output Total 1075 / 1075 1500 / 1500 Balance 1214.56 / 1333.26 -319.08 / -307.18 59.5 / 59.5 Lab / Micro Data Attestation: I reviewed the patient's lab results. Result Diagrams: 04/24/21 03:50 04/24/21 03:50 Labs: Laboratory Results - last 24 hr 04/23/21 11:12: POC Glucose 99 04/23/21 16:20: POC Glucose 221 H 04/23/21 22:21: POC Glucose 403 H 04/24/21 03:50: WBC 7.8, RBC 3.84 L, Hgb 10.2 L, Hct 32.3 L, MCV 84.1, MCH 26.6 L, MCHC 31.6 L, RDW Std Deviation 42.9, RDW Coeff of Carlos Enrique 13.9, Plt Count 210, MPV 10.8, Immature Gran % (Auto) 1.300 H, Neut % (Auto) 88.8 H, Lymph % (Auto) 5.2 L, [place] % (Auto) 4.6, Eos % (Auto) 0.0, Baso % (Auto) 0.1, Absolute Neuts (auto) 6.9, Absolute Lymphs (auto) 0.41 L, Nucleated RBC % 0, Differential Comment SCANNED 04/24/21 03:50: Sodium 142, Potassium 4.0, Chloride 109 H, Carbon Dioxide 26.0, Anion Gap 7, BUN 60 H, Creatinine 1.27 H, Estim Creat Clear Calc 38.48, Est GFR (MDRD) Af Amer 55 L, Est GFR (MDRD) Non-Af 45 L, BUN/Creatinine Ratio 47.2 H, Glucose 300 H, Calcium 9.1, Total Bilirubin 0.30, AST 32, ALT 33, Alkaline Phosphatase 82, Total Protein 6.1 L, Albumin 1.9 L, Globulin 4.2, Albumin/Globulin Ratio 0.5 L Micro: Microbiology 04/17/21 18:00 Blood Culture (Wb) - Anticubital Left Blood Culture - Final No growth in 5 days. 04/21/21 08:15 Sputum, Induced/Lukens Gram Stain - Final 04/21/21 08:15 Sputum, Induced/Lukens Respiratory Culture - Preliminary Staphylococcus aureus 04/15/21 01:50 Blood Culture (Wb) #2 - Anticubital Right Bacteria Detection (PCR) - Final Strep not Strep pneumo 04/15/21 01:50 Blood Culture (Wb) #2 - Anticubital Right Blood Culture - Final Streptococcus mitis/ oralis 04/15/21 01:35 Blood Culture (Wb) - Anticubital Left Blood Culture - Final No growth in 5 days. 04/18/21 08:50 Urine, Random Legionella Antigen - Final 04/18/21 08:50 Urine, Random Streptococcus pneumoniae Antigen (M - Final 04/15/21 01:45 Mucosa - Nose Influenza Types A,B Direct FA (ERIK) - Final 04/15/21 01:45 Nasal Secretion SARS-CoV-2 Antigen (Rapid) - Final SARS-CoV-2 (COVID 19) ABG Data ABG results: ABG 04/23/21 04/23/21 09:02 10:52 Specimen Type ART ART Sample Site L Radial L Radial pH 6.92 L* 7.39 Bicarbonate Actual 32.8 H 24.0 Total CO2 38 25 Base Excess 0 -1 O2 Saturation 86 L 92 L O2 % 75 50 ABG pCO2 160.7 H* 40.0 ABG pO2 90 66 L Boris Test Negative Positive Respiration Rate 14 16 O2 Delivery Device Adult Vent Adult Vent Vent Mode AC Tidal Volume 400 POC PEEP 5 POC Pressure Suppt 5 Crit Call To/Read Back Yes Radiography Diagnostic Testing: Radiology Impression Brain CT 04/23/21 08:10 IMPRESSION: 1. Negative head/brain CT without intravenous contrast at this time. 2. Total ASPECTS score: 10/10. Electronically Signed: Isrrael Alfredo MD at 8:45 EST , Service support , ADDENDUM: 04/23/21 0857 IMPRESSION: 1. Negative head/brain CT without intravenous contrast at this time. 2. Total ASPECTS score: 1010. N.B. : The above Results were Read Back by Isrrael Alfredo MD to Tc Nation DO, and understanding confirmed on 04/23/2021 08:50:08 (ET). Electronically Signed: Isrrael Alfredo MD at 8:45 EST , Service support , Physical Exam Const alert and no apparent distress General Appearance: intubated and patient mechanically ventilated HEENT normocephalic and head/scalp atraumatic Mouth: endotracheal tube in place and OG tube in place Eyes PERRL, EOMs intact bilaterally and conjunctivae normal Neck supple General: trachea midline Chest inspection of chest normal Resp normal respiratory effort Auscultation: diminished lung sounds; Negative for rales, rhonchi or wheezes Cardio S1 normal heart sound and S2 normal heart sound Rate: tachycardic GI normal to inspection, nondistended, normoactive bowel sounds Extremity no clubbing, cyanosis or edema Skin no rashes or lesions noted Neuro Neuro Narrative: Alert and following commands appropriately. Charges/Coding Procedures Hospitalists Procedures: 31142 Critial Care 1st Hr
[2021-04-24] MEDS: Menthol/Lanolin/Calamine/Znox 113 GM Tube 1 APPLIC TOPICAL ×3 (06:40→21:46)
[2021-04-24] MEDS: Insulin Lispro 100 UNIT/ML INSULN.PEN SC ×3 (06:43→21:46)
--- NOTE | 2021-04-24 07:13 | PCM.PN.HOSP ---
Subjective Subjective Patient was successfully weaned off the vent this a.m. Objective Data Objective Data Vital Signs: Vital Signs Temp Pulse Resp BP Pulse Ox 100.2 F H 82 18 116/68 92 04/24/21 04:00 04/24/21 06:00 04/24/21 06:00 04/24/21 06:00 04/24/21 06:00 Oxygen Flow Rate (L/min) 60 Oxygen Delivery Method Mechanical Ventilator Weight: 64.4 kg Body Mass Index (BMI) 25.2 Intake & Output: Intake and Output for Last 24 Hours 04/22/21 04/23/21 04/24/21 23:59 23:59 23:59 Intake Total 2289.56 / 2408.26 1180.92 / 1192.82 59.5 / 59.5 Output Total 1075 / 1075 1500 / 1500 250 / 250 Balance 1214.56 / 1333.26 -319.08 / -307.18 -190.5 / -190.5 Lab / Micro Data Result Diagrams: 04/24/21 03:50 04/24/21 03:50 Labs: Laboratory Results - last 24 hr 04/23/21 11:12: POC Glucose 99 04/23/21 16:20: POC Glucose 221 H 04/23/21 22:21: POC Glucose 403 H 04/24/21 03:50: WBC 7.8, RBC 3.84 L, Hgb 10.2 L, Hct 32.3 L, MCV 84.1, MCH 26.6 L, MCHC 31.6 L, RDW Std Deviation 42.9, RDW Coeff of Carlos Enrique 13.9, Plt Count 210, MPV 10.8, Immature Gran % (Auto) 1.300 H, Neut % (Auto) 88.8 H, Lymph % (Auto) 5.2 L, [place] % (Auto) 4.6, Eos % (Auto) 0.0, Baso % (Auto) 0.1, Absolute Neuts (auto) 6.9, Absolute Lymphs (auto) 0.41 L, Nucleated RBC % 0, Differential Comment SCANNED 04/24/21 03:50: Sodium 142, Potassium 4.0, Chloride 109 H, Carbon Dioxide 26.0, Anion Gap 7, BUN 60 H, Creatinine 1.27 H, Estim Creat Clear Calc 38.48, Est GFR (MDRD) Af Amer 55 L, Est GFR (MDRD) Non-Af 45 L, BUN/Creatinine Ratio 47.2 H, Glucose 300 H, Calcium 9.1, Total Bilirubin 0.30, AST 32, ALT 33, Alkaline Phosphatase 82, Total Protein 6.1 L, Albumin 1.9 L, Globulin 4.2, Albumin/Globulin Ratio 0.5 L Micro: Microbiology 04/17/21 18:00 Blood Culture (Wb) - Anticubital Left Blood Culture - Final No growth in 5 days. 04/21/21 08:15 Sputum, Induced/Lukens Gram Stain - Final 04/21/21 08:15 Sputum, Induced/Lukens Respiratory Culture - Preliminary Staphylococcus aureus 04/15/21 01:50 Blood Culture (Wb) #2 - Anticubital Right Bacteria Detection (PCR) - Final Strep not Strep pneumo 04/15/21 01:50 Blood Culture (Wb) #2 - Anticubital Right Blood Culture - Final Streptococcus mitis/ oralis 04/15/21 01:35 Blood Culture (Wb) - Anticubital Left Blood Culture - Final No growth in 5 days. 04/18/21 08:50 Urine, Random Legionella Antigen - Final 04/18/21 08:50 Urine, Random Streptococcus pneumoniae Antigen (M - Final 04/15/21 01:45 Mucosa - Nose Influenza Types A,B Direct FA (ERIK) - Final 04/15/21 01:45 Nasal Secretion SARS-CoV-2 Antigen (Rapid) - Final SARS-CoV-2 (COVID 19) ABG Data ABG results: ABG 04/23/21 04/23/21 09:02 10:52 Specimen Type ART ART Sample Site L Radial L Radial pH 6.92 L* 7.39 Bicarbonate Actual 32.8 H 24.0 Total CO2 38 25 Base Excess 0 -1 O2 Saturation 86 L 92 L O2 % 75 50 ABG pCO2 160.7 H* 40.0 ABG pO2 90 66 L Boris Test Negative Positive Respiration Rate 14 16 O2 Delivery Device Adult Vent Adult Vent Vent Mode AC Tidal Volume 400 POC PEEP 5 POC Pressure Suppt 5 Crit Call To/Read Back Yes Radiography Diagnostic Testing: Radiology Impression Brain CT 04/23/21 08:10 IMPRESSION: 1. Negative head/brain CT without intravenous contrast at this time. 2. Total ASPECTS score: 02/13. Electronically Signed: Isrrael Alfredo MD at 8:45 EST , Service support , ADDENDUM: 04/23/21 0857 IMPRESSION: 1. Negative head/brain CT without intravenous contrast at this time. 2. Total ASPECTS score: 10/10. N.B. : The above Results were Read Back by Isrrael Alfredo MD to Tc Nation DO, and understanding confirmed on 04/23/2021 08:50:08 (ET). Electronically Signed: Isrrael Alfredo MD at 8:45 EST , Service support , Physical Exam Narrative GENERAL: Awake, cooperative HEENT: Atraumatic; EYES; Anicteric, Normal Conjunctiva NECK; supple, normal thyroid, RESPIRATORY: Diminished to auscultation CARDIOVASCULAR: Regular S1 S2, GI: soft, normoactive bowel sounds, : No Renal angle tenderness; EXTREMITIES: No edema, no clubbing, MUSCULOSKELETAL: no muscle waisting NEURO: No lateralizing signs SKIN: No Rash Assessment & Plan Assessment/Plan (1) Pneumonia due to COVID-19 virus: (2) Acute respiratory failure with hypoxia: PLAN: Patient is a 60-year-old lady unvaccinated against COVID-19 pneumonia presented with progressive shortness of breath. An assessment of acute hypoxic respiratory failure secondary to COVID-19 made. Patient was initially managed on a regular nursing floor transfer to the intensive care unit due to rapid deterioration in her clinical condition 1. Acute hypoxic respiratory failure Is secondary to COVID-19 pneumonia strep pneumonia. Patient was transferred from regular nursing floor to the ICU due to rapidly deteriorating respiratory status. Patient apparently did not tolerate BiPAP but is okay with intubation ?04/19/2021;Patient remains on high flow oxygen via Airvo. Apparently did not tolerate BiPAP. Patient was seen in consultation by infectious disease. Baricitinib added to patient treatment regimen -04/20/2021 Patient seen remains in the ICU. Remains on Airvo with flow of 60 L/min and FiO2 of 92% in addition to 100% nonrebreather. Patient still declines BiPAP -04/21/2021;Patient was intubated due to deteriorating respiratory status Seen this a.m. remains stable on the vent. Current vent settings FiO2 of 60% PEEP of 5 on assist control pressure support -04/23/2021: Patient remains on the vent ; currently on pressure support ventilation -04/24/2021; Patient was successfully weaned off the vent this a.m.. Patient had apparently grown staph from his sputum was started on vancomycin which was discontinued today since final culture came back positive for MSSA. 2. COVID-19 pneumonia ?Patient managed on dexamethasone and remdesivir. Patient may be a candidate for baricitinib due to her rapidly deteriorating oxygen saturation. Consult placed to ID to initiate baricitinib 3. Streptococcal pneumonia ?Patient blood cultures grew Streptococcus mitis. Ceftriaxone added to patient's therapy 4. Superimposed staphylococcal pneumonia ?Vancomycin added to patient's therapy starting 04/22/2021 -04/24/2021;Patient had apparently grown staph from his sputum was started on vancomycin which was discontinued today since final culture came back positive for MSSA. 5. Diabetes mellitus type II -patient's oral hypoglycemics held. Placed on long acting insulin, Accu-Cheks a.c. and at bedtime and covered with sliding scale insulin 6. Hypertension - Blood pressure controlled, home medications continued with dose adjustment as needed 7. Dyslipidemia -Patient is on statin therapy, continued at home dose 8. Acute kidney injury ?Creatinine on admission was 1.76 down to 1.24. Do suspect some chronicity we will continue with monitoring -04/22/2021; kidney function remains stable. 9. DVT prophylaxis ?Lovenox Charges/Coding Visit Charges Inpatient E&M: [address] [facility] L3
[2021-04-24] MEDS: Albuterol 2.5 MG/3 ML VIAL.NEB. INHALATION ×3 (07:20→17:22)
[2021-04-24] MEDS: Enoxaparin 30 MG/0.3 ML Syringe SC ×2 (09:19→21:47)
[2021-04-24] MEDS: dexAMETHasone 4 MG Tablet 6 MG PO (09:19)
[2021-04-24 12:00] LABS: Bedside Glucose 57 mg/dL (70-110)
[2021-04-24 12:00] LABS: Bedside Glucose 64 mg/dL (70-110)
[2021-04-24 12:41] LABS: Bedside Glucose 97 mg/dL (70-110)
[2021-04-24 12:41] LABS: Bedside Glucose 173 mg/dL (70-110)
[2021-04-24 16:41] LABS: Bedside Glucose 330 mg/dL (70-110)
[2021-04-25] VITALS (22 sets, daily range): BP systolic 81–136; BP diastolic 55–84; PULSE 52–85; RESP 13–21; TEMP 36.2–37.2; O2SAT 94–99
[2021-04-25 00:11] LABS: Bedside Glucose 240 mg/dL (70-110)
[2021-04-25 04:49] LABS: Absolute Lymphocyte Count 0.81 X10^3/uL (0.83-4.51); Absolute Neutrophil Count 6.5 X10^3/uL (2.0-7.7); Basophil# 0.02 X10^3/uL; Basophil% 0.3 % (0-1); Hematocrit 35.2 % (37-47); Hemoglobin 10.9 g/dL (12.0-15.0); Lymphocyte # 0.81 X10^3/ul (0.83-4.51); Lymphocyte % 10.4 % (19-41); Mean Corpuscular Hgb 26.5 pg (27.0-32.0); Mean Corpuscular Volume 85.6 fL (81-99); Mean Platelet Vol. 10.2 fl (6.2-12.0); Monocyte% 3.9 % (0-10); NRBC Flagged by Analyzer 0 % (0-5); Neutrophil # 6.46 X10^3/uL (2.7-7.7); Neutrophil % 83.2 % (47-70); Platelet Count 207 K/mm3 (150-450); RBC Distribution Width CV 13.9 % (11.6-14.6); RBC Distribution Width SD 43.2 fl (35.1-43.9); Red Blood Count 4.11 M/mm3 (4.2-5.4); White Blood Count 7.8 K/mm3 (4.4-11.0)
[2021-04-25 05:13] LABS: ALB/GLOB Ratio 0.4 RATIO (0.9-2.4); AST(SGOT) 48 U/L (15-37); Alanine Aminotransfer ALT/SGPT 47 U/L (13-56); Albumin, Serum 2.1 g/dL (3.2-5.0); Alkaline Phosphatase 87 U/L (45-117); Anion Gap 7 (5-15); BUN 44 mg/dL (7-18); BUN/Creat Ratio 40.4 RATIO (10-20); Calcium,Total 9.4 mg/dL (8.5-10.1); Chloride 105 mmol/L (98-107); Creatinine, Serum 1.09 mg/dL (0.55-1.02); EST Glomerular Filtration Rate 54 mL/min (>60); Est Glom Filt Rate - Afr Amer 66 mL/min (>60); Estimated Creatinine Clearance 44.84 ml/min; Globulin 4.8 g/dL (2.2-4.2); Glucose 163 mg/dL (74-106); Potassium 4.2 mmol/L (3.5-5.1); Protein, Total 6.9 g/dL (6.4-8.2); Sodium Level 141 mmol/L (136-145)
[2021-04-25] MEDS: Menthol/Lanolin/Calamine/Znox 113 GM Tube 1 APPLIC TOPICAL ×3 (05:29→21:34)
[2021-04-25] MEDS: Albuterol 2.5 MG/3 ML VIAL.NEB. INHALATION ×3 (06:55→20:36)
--- NOTE | 2021-04-25 08:04 | PN.CC_ITS ---
Assessment & Plan Assessment/Plan (1) Acute respiratory failure with hypoxia: (2) Pneumonia due to COVID-19 virus: PLAN: RECOMMENDATIONS: 1. Wean supplemental oxygen for saturations greater than 90%. Possible walking oximetry tomorrow 2. Continue antimicrobials as ordered to complete a 7-day course. 3. P.o. diet per recommendations 4. Continue prophylactic Lovenox, Decadron and baricitinib with appropriate laboratory monitoring for complications. 5. Continue appropriate GI prophylaxis. 6. Gentle diuresis as tolerated by hemodynamics and renal function. 7. Okay to leave the intensive care unit from my perspective IMPRESSIONS: 1. Acute hypoxemic respiratory failure secondary to COVID-19 pneumonia The patient initially presented to the hospital on April 15 with worsening shortness of breath and cough. She was subsequently found to be positive for COVID-19 pneumonia. CTA showed no evidence for pulmonary embolism. The patient was placed on antimicrobials, Decadron and remdesivir. Unfortunately, she continued to decompensate from a respiratory perspective, ultimately requiring transfer to the ICU and intubation on April 21. The patient will be continued on baricitinib per ID recommendations. Diuretics will be utilized intermittently to maintain euvolemic state. Patient appears to be stable following extubation. Okay to leave the intensive care unit from my perspective. Increase activity as tolerated. 2. Acute kidney injury Improved. Likely prerenal in etiology and related to #1. Continue to monitor urine output for now. No current indication for renal replacement therapy. Will continue intermittent dosing of diuretics as tolerated by hemodynamics and renal function. 3. Diabetes mellitus/hypertension/hyperlipidemia Complicates care, management, recovery and prognosis. Continue Lantus and sliding scale insulin coverage. Subjective Subjective Patient did well overnight. No acute issues were reported. Patient reportedly tolerated extubation well and has no complaints of dyspnea this morning. Patient has been able to be weaned to 2 L nasal cannula. Objective Data Objective Data Vital Signs: Vital Signs Temp Pulse Resp BP Pulse Ox 36.8 C 66 13 136/68 H 97 04/25/21 07:00 04/25/21 07:42 04/25/21 07:00 04/25/21 07:00 04/25/21 07:00 Oxygen Flow Rate (L/min) 2 Oxygen Delivery Method Nasal Cannula Weight: 64.7 kg Body Mass Index (BMI) 25.2 Intake & Output: Intake and Output for Last 24 Hours 04/23/21 04/24/21 04/25/21 23:59 23:59 23:59 Intake Total 1180.92 / 1192.82 649.5 / 749.5 100 / 100 Output Total 1500 / 1500 730 / 1130 650 / 650 Balance -319.08 / -307.18 -80.5 / -380.5 -550 / -550 Lab / Micro Data Result Diagrams: 04/25/21 04:25 04/25/21 04:25 Labs: Laboratory Results - last 24 hr 04/24/21 06:42: POC Glucose 173 H 04/24/21 11:13: POC Glucose 57 L 04/24/21 11:30: POC Glucose 64 L 04/24/21 12:00: POC Glucose 97 04/24/21 16:12: POC Glucose 330 H 04/24/21 21:40: POC Glucose 240 H 04/25/21 04:25: WBC 7.8, RBC 4.11 L, Hgb 10.9 L, Hct 35.2 L, MCV 85.6, MCH 26.5 L, MCHC 31.0 L, RDW Std Deviation 43.2, RDW Coeff of Carlos Enrique 13.9, Plt Count 207, MPV 10.2, Immature Gran % (Auto) 2.200 H, Neut % (Auto) 83.2 H, Lymph % (Auto) 10.4 L, [place] % (Auto) 3.9, Eos % (Auto) 0.0, Baso % (Auto) 0.3, Absolute Neuts (auto) 6.5, Absolute Lymphs (auto) 0.81 L, Nucleated RBC % 0 04/25/21 04:25: Sodium 141, Potassium 4.2, Chloride 105, Carbon Dioxide 29.0, Anion Gap 7, BUN 44 H, Creatinine 1.09 H, Estim Creat Clear Calc 44.84, Est GFR (MDRD) Af Amer 66, Est GFR (MDRD) Non-Af 54 L, BUN/Creatinine Ratio 40.4 H, Gl ucose 163 H, Calcium 9.4, Total Bilirubin 0.40, AST 48 H, ALT 47, Alkaline Phosphatase 87, Total Protein 6.9, Albumin 2.1 L, Globulin 4.8 H, Albumin/Globulin Ratio 0.4 L Micro: Microbiology 04/21/21 08:15 Sputum, Induced/Lukens Gram Stain - Final 04/21/21 08:15 Sputum, Induced/Lukens Respiratory Culture - Preliminary Staphylococcus aureus Gram negative bridgett 04/17/21 18:00 Blood Culture (Wb) - Anticubital Left Blood Culture - Final No growth in 5 days. 04/15/21 01:50 Blood Culture (Wb) #2 - Anticubital Right Bacteria Detection (PCR) - Final Strep not Strep pneumo 04/15/21 01:50 Blood Culture (Wb) #2 - Anticubital Right Blood Culture - Final Streptococcus mitis/ oralis 04/15/21 01:35 Blood Culture (Wb) - Anticubital Left Blood Culture - Final No growth in 5 days. 04/18/21 08:50 Urine, Random Legionella Antigen - Final 04/18/21 08:50 Urine, Random Streptococcus pneumoniae Antigen (M - Final 04/15/21 01:45 Mucosa - Nose Influenza Types A,B Direct FA (ERIK) - Final 04/15/21 01:45 Nasal Secretion SARS-CoV-2 Antigen (Rapid) - Final SARS-CoV-2 (COVID 19) Physical Exam Const alert, oriented x3 and no apparent distress General Appearance: cooperative and comfortable; Negative for intubated HEENT normocephalic and head/scalp atraumatic Mouth: moist mucous membranes abnormal parched Eyes PERRL, EOMs intact bilaterally and conjunctivae normal Neck supple General: trachea midline Chest inspection of chest normal Resp normal respiratory effort Auscultation: diminished lung sounds; Negative for rales, rhonchi or wheezes Cardio S1 normal heart sound and S2 normal heart sound Rate: tachycardic GI normal to inspection, nondistended, normoactive bowel sounds Extremity no clubbing, cyanosis or edema Skin no rashes or lesions noted Neuro Neuro Narrative: Alert and following commands appropriately. Charges/Coding Visit Charges Inpatient E&M: 91968 Subs Hosp L3
[2021-04-25 08:45] LABS: Bedside Glucose 132 mg/dL (70-110)
[2021-04-25] MEDS: Enoxaparin 30 MG/0.3 ML Syringe SC ×2 (09:55→21:38)
--- NOTE | 2021-04-25 10:40 | CASEMGMT ---
Social Work SW called [facility], spoke w/Tari. It is anticipated they still will be able to take pt. Precert is waived for this pt's insurance. SW faxed updates, Tari at [facility] to let SW for certain if they can take pt. SW met w/pt in room, confirmed she is still in agreement w/going to [facility]. Pt agreeable to SW calling thaddeus Culp to update her. SW called thaddeus Culp, let her know pt is agreeable to [facility], MAKENNA did explain the limitations of alf placement due to pt having COVID. MAKENNA explained it does look like [facility] can take pt when she is ready. Thaddeus states understanding. SW will continue to follow, pt going to PCU, PCU SW aware of referral to [facility]. Plan: [facility] when medically ready, once we hear back definitively from Tari that they can take her. KAUSHIK Diggs
[2021-04-25] MEDS: Insulin Lispro 100 UNIT/ML INSULN.PEN SC ×2 (12:40→21:35)
[2021-04-25 12:50] LABS: Bedside Glucose 226 mg/dL (70-110)
[2021-04-25 17:11] LABS: Bedside Glucose 122 mg/dL (70-110)
--- NOTE | 2021-04-25 17:23 | PN.HOSP_ITS ---
Subjective Subjective Doing, no issues overnight. She has been able to maintain her oxygen sats throughout the day on 2 L nasal cannula Objective Data Objective Data Vital Signs: Vital Signs Temp Pulse Resp BP Pulse Ox 97.2 F L 80 16 94/68 98 04/25/21 17:00 04/25/21 17:00 04/25/21 17:00 04/25/21 17:00 04/25/21 17:00 Oxygen Flow Rate (L/min) 2 Oxygen Delivery Method Nasal Cannula Weight: 142 lb 10.225 oz Body Mass Index (BMI) 25.2 Intake & Output: Intake and Output for Last 24 Hours 04/24/21 04/25/21 04/26/21 03:59 03:59 03:59 Intake Total 1056.21 / 1068.11 701.9 / 701.9 230 / 230 Output Total 1500 / 1500 1130 / 1130 250 / 250 Balance -443.79 / -431.89 -428.1 / -428.1 - / -20 Lab / Micro Data Result Diagrams: 04/26/21 10:57 04/26/21 10:57 Labs: Laboratory Results - last 24 hr 04/24/21 21:40: POC Glucose 240 H 04/25/21 04:25: WBC 7.8, RBC 4.11 L, Hgb 10.9 L, Hct 35.2 L, MCV 85.6, MCH 26.5 L, MCHC 31.0 L, RDW Std Deviation 43.2, RDW Coeff of Carlos Enrique 13.9, Plt Count 207, MPV 10.2, Immature Gran % (Auto) 2.200 H, Neut % (Auto) 83.2 H, Lymph % (Auto) 10.4 L, [place] % (Auto) 3.9, Eos % (Auto) 0.0, Baso % (Auto) 0.3, Absolute Neuts (auto) 6.5, Absolute Lymphs (auto) 0.81 L, Nucleated RBC % 0 04/25/21 04:25: Sodium 141, Potassium 4.2, Chloride 105, Carbon Dioxide 29.0, Anion Gap 7, BUN 44 H, Creatinine 1.09 H, Estim Creat Clear Calc 44.84, Est GFR (MDRD) Af Amer 66, Est GFR (MDRD) Non-Af 54 L, BUN/Creatinine Ratio 40.4 H, Glucose 163 H, Calcium 9.4, Total Bilirubin 0.40, AST 48 H, ALT 47, Alkaline Phosphatase 87, Total Protein 6.9, Albumin 2.1 L, Globulin 4.8 H, Albumin/Globulin Ratio 0.4 L 04/25/21 08:42: POC Glucose 132 H 04/25/21 12:39: POC Glucose 226 H 04/25/21 17:00: POC Glucose 122 H Micro: Microbiology 04/21/21 08:15 Sputum, Induced/Lukens Gram Stain - Final 04/21/21 08:15 Sputum, Induced/Lukens Respiratory Culture - Preliminary Staphylococcus aureus Sphingomonas paucimobilis 04/17/21 18:00 Blood Culture (Wb) - Anticubital Left Blood Culture - Final No growth in 5 days. 04/15/21 01:50 Blood Culture (Wb) #2 - Anticubital Right Bacteria Detection (PCR) - Final Strep not Strep pneumo 04/15/21 01:50 Blood Culture (Wb) #2 - Anticubital Right Blood Culture - Final Streptococcus mitis/ oralis 04/15/21 01:35 Blood Culture (Wb) - Anticubital Left Blood Culture - Final No growth in 5 days. 04/18/21 08:50 Urine, Random Legionella Antigen - Final 04/18/21 08:50 Urine, Random Streptococcus pneumoniae Antigen (M - Final 04/15/21 01:45 Mucosa - Nose Influenza Types A,B Direct FA (ERIK) - Final 04/15/21 01:45 Nasal Secretion SARS-CoV-2 Antigen (Rapid) - Final SARS-CoV-2 (COVID 19) Physical Exam Const alert, oriented x3 and no apparent distress General Appearance: cooperative HEENT normocephalic and moist oral mucous membranes Eyes PERRL, EOMs intact bilaterally and conjunctivae normal Neck supple and no JVD Resp normal respiratory effort, no retractions and no use of accessory muscles Auscultation: diminished lung sounds; Negative for crackles, rales, rhonchi or wheezes Cardio regular rate, regular rhythm, S1 normal heart sound, S2 normal heart sound and no murmurs GI soft to palpation, non-tender and non-distended; Negative for hepatosplenomegaly Extremity no clubbing, cyanosis or edema Skin no rashes or lesions noted Neuro no focal motor deficits and no sensory deficits noted Psych affect normal Appearance: appropriate Assessment & Plan Assessment/Plan (1) Pneumonia due to COVID-19 virus: (2) Acute respiratory failure with hypoxia: PLAN: 1. Acute hypoxic respiratory failure Is secondary to COVID-19 pneumonia strep pneumonia. Patient was transferred from regular nursing floor to the ICU due to rapidly deteriorating respiratory status. Patient apparently did not tolerate BiPAP but is okay with intubation ?04/19/2021;Patient remains on high flow oxygen via Airvo. Apparently did not tolerate BiPAP. Patient was seen in consultation by infectious disease. Baricitinib added to patient treatment regimen -04/20/2021 Patient seen remains in the ICU. Remains on Airvo with flow of 60 L/min and FiO2 of 92% in addition to 100% nonrebreather. Patient still declines BiPAP -04/21/2021;Patient was intubated due to deteriorating respiratory status Seen this a.m. remains stable on the vent. Current vent settings FiO2 of 60% PEEP of 5 on assist control pressure support -04/23/2021: Patient remains on the vent ; currently on pressure support ventilation -04/24/2021; Patient was successfully weaned off the vent this a.m.. Patient had apparently grown staph from his sputum was started on vancomycin which was discontinued today since final culture came back positive for MSSA. ?04/25/2021: Maintaining her oxygen saturations on 2 L nasal cannula after having been extubated today 2. COVID-19 pneumonia ?Patient managed on dexamethasone and remdesivir. Patient may be a candidate for baricitinib due to her rapidly deteriorating oxygen saturation. Consult placed to ID to initiate baricitinib ?04/25/2021: She has completed Decadron and remdesivir. She is doing well on the baricitinib 3. Streptococcal pneumonia ?Patient blood cultures grew Streptococcus mitis. Ceftriaxone added to patient's therapy ?04/25/2021: This was completed on 04/23/2021, which was a 7-day course, blood cultures were likely contaminant 4. Superimposed staphylococcal pneumonia ?Vancomycin added to patient's therapy starting 04/22/2021 -04/24/2021;Patient had apparently grown staph from his sputum was started on vancomycin which was discontinued today since final culture came back positive for MSSA. 5. Diabetes mellitus type II -patient's oral hypoglycemics held. Placed on long acting insulin, Accu-Cheks a.c. and at bedtime and covered with sliding scale insulin 6. Hypertension - Blood pressure controlled, home medications continued with dose adjustment as needed 7. Dyslipidemia -Patient is on statin therapy, continued at home dose 8. Acute kidney injury ?Creatinine on admission was 1.76 down to 1.24. Do suspect some chronicity we will continue with monitoring -04/22/2021; kidney function remains stable. DVT: Lovenox Charges/Coding Visit Charges Inpatient E&M: 74615 Subs Hosp L2
[2021-04-25 21:55] LABS: Bedside Glucose 168 mg/dL (70-110)
[2021-04-26] VITALS (17 sets, daily range): BP systolic 100–129; BP diastolic 74–85; PULSE 60–100; RESP 18–22; TEMP 36.5–36.6; O2SAT 87–100
[2021-04-26] MEDS: Acetaminophen 325 MG Tablet 650 MG PO (03:39)
[2021-04-26] MEDS: Menthol/Lanolin/Calamine/Znox 113 GM Tube 1 APPLIC TOPICAL ×3 (03:39→22:03)
[2021-04-26 06:55] LABS: Bedside Glucose 51 mg/dL (70-110)
[2021-04-26 06:55] LABS: Bedside Glucose 57 mg/dL (70-110)
[2021-04-26 07:35] LABS: Bedside Glucose 117 mg/dL (70-110)
[2021-04-26] MEDS: Albuterol 2.5 MG/3 ML VIAL.NEB. INHALATION ×3 (07:56→20:24)
[2021-04-26] MEDS: Enoxaparin 30 MG/0.3 ML Syringe SC ×2 (08:45→22:04)
--- NOTE | 2021-04-26 09:51 | CASEMGMT ---
Addendum entered by Delaney James 04/26/21 12:30: MAKENNA heard back from Tari at [facility]. Her project manager process development is reviewing the clinicals and she will let SW know if they can accept. They do not have a bed today, but possibly tomorrow. Tari will get back to MAKENNA. Delaney REAL Original Note: MAKENNA called Tari at [facility] and left her a voice mail inquiring if they are definitely able to take patient as she is possibly ready today. Delaney REAL
--- NOTE | 2021-04-26 10:44 | PN.CC_ITS ---
Assessment & Plan Assessment/Plan (1) Acute respiratory failure with hypoxia: (2) Pneumonia due to COVID-19 virus: PLAN: RECOMMENDATIONS: 1. Wean supplemental oxygen for saturations greater than 90%. Possible walking oximetry tomorrow 2. Continue antimicrobials as ordered to complete a 7-day course. 3. P.o. diet per recommendations 4. Continue prophylactic Lovenox, Decadron and baricitinib with appropriate laboratory monitoring for complications. 5. Continue appropriate GI prophylaxis. 6. Gentle diuresis as tolerated by hemodynamics and renal function. 7. Walking oximetry prior to discharge 8. Hemodynamically stable on nasal cannula. Will sign off from a pulmonar y/critical care perspective IMPRESSIONS: 1. Acute hypoxemic respiratory failure secondary to COVID-19 pneumonia The patient initially presented to the hospital on April 15 with worsening shortness of breath and cough. She was subsequently found to be positive for COVID-19 pneumonia. CTA showed no evidence for pulmonary embolism. The patient was placed on antimicrobials, Decadron and remdesivir. Unfortunately, she continued to decompensate from a respiratory perspective, ultimately requiring transfer to the ICU and intubation on April 21. The patient will be continued on baricitinib per ID recommendations. Diuretics will be utilized intermittently to maintain euvolemic state. We will sign off from a pulmonary/critical care perspective. Patient can follow-up in our office 4 to 6 weeks after discharge for evaluation of supplemental oxygen if indicated. Increase activity as tolerated. 2. Acute kidney injury Improved. Likely prerenal in etiology and related to #1. Continue to monitor urine output for now. No current indication for renal replacement therapy. Will continue intermittent dosing of diuretics as tolerated by hemodynamics and renal function. 3. Diabetes mellitus/hypertension/hyperlipidemia Complicates care, management, recovery and prognosis. Continue Lantus and sliding scale insulin coverage. Subjective Subjective Patient transferred out of the intensive care unit yesterday. No acute issues were reported. Patient has been doing well on nasal cannula oxygen. Objective Data Objective Data Vital Signs: Vital Signs Temp Pulse Resp BP Pulse Ox 36.6 C 79 18 100/83 H 97 04/26/21 09:30 04/26/21 09:30 04/26/21 09:30 04/26/21 09:30 04/26/21 09:30 Oxygen Flow Rate (L/min) [ 2 AMBULATING with Oxygen #1] Oxygen Flow Rate (L/min) 2 Oxygen Delivery Method Nasal Cannula Weight: 64 kg Body Mass Index (BMI) 25.2 Intake & Output: Intake and Output for Last 24 Hours 04/24/21 04/25/21 04/26/21 23:59 23:59 23:59 Intake Total 649.5 / 749.5 630 / 630 Output Total 730 / 1130 950 / 950 160 / 160 Balance -80.5 / -380.5 -320 / -320 -160 / -160 Lab / Micro Data Result Diagrams: 04/25/21 04:25 04/25/21 04:25 Labs: Laboratory Results - last 24 hr 04/25/21 12:39: POC Glucose 226 H 04/25/21 17:00: POC Glucose 122 H 04/25/21 21:34: POC Glucose 168 H 04/26/21 06:27: POC Glucose 51 L 04/26/21 06:46: POC Glucose 57 L 04/26/21 07:31: POC Glucose 117 H Micro: Microbiology 04/21/21 08:15 Sputum, Induced/Lukens Gram Stain - Final 04/21/21 08:15 Sputum, Induced/Lukens Respiratory Culture - Final Staphylococcus aureus Sphingomonas paucimobilis 04/17/21 18:00 Blood Culture (Wb) - Anticubital Left Blood Culture - Final No growth in 5 days. 04/15/21 01:50 Blood Culture (Wb) #2 - Anticubital Right Bacteria Detection (PCR) - Final Strep not Strep pneumo 04/15/21 01:50 Blood Culture (Wb) #2 - Anticubital Right Blood Culture - Final Streptococcus mitis/ oralis 04/15/21 01:35 Blood Culture (Wb) - Anticubital Left Blood Culture - Final No growth in 5 days. 04/18/21 08:50 Urine, Random Legionella Antigen - Final 04/18/21 08:50 Urine, Random Streptococcus pneumoniae Antigen (M - Final 04/15/21 01:45 Mucosa - Nose Influenza Types A,B Direct FA (ERIK) - Final 04/15/21 01:45 Nasal Secretion SARS-CoV-2 Antigen (Rapid) - Final SARS-CoV-2 (COVID 19) Physical Exam Const alert, oriented x3 and no apparent distress General Appearance: cooperative and comfortable; Negative for intubated HEENT normocephalic and head/scalp atraumatic Mouth: moist mucous membranes abnormal parched Eyes PERRL, EOMs intact bilaterally and conjunctivae normal Neck supple General: trachea midline Chest inspection of chest normal Resp normal respiratory effort Auscultation: diminished lung sounds; Negative for rales, rhonchi or wheezes Cardio S1 normal heart sound and S2 normal heart sound Rate: tachycardic GI normal to inspection, nondistended, normoactive bowel sounds Extremity no clubbing, cyanosis or edema Skin no rashes or lesions noted Neuro Neuro Narrative: Alert and following commands appropriately. Charges/Coding Visit Charges Inpatient E&M: 15594 Subs Hosp L2
[2021-04-26 11:12] LABS: Basophil# 0.01 X10^3/uL; Basophil% 0.2 % (0-1); Eosinophil# 0.04 X10^3/uL; Eosinophils% 0.7 % (0-5); Hematocrit 36.8 % (37-47); Hemoglobin 11.8 g/dL (12.0-15.0); Lymphocyte % 26.7 % (19-41); Mean Corp Hgb Conc 32.1 g/dL (32-36); Mean Corpuscular Hgb 27.2 pg (27.0-32.0); Mean Corpuscular Volume 84.8 fL (81-99); Monocyte# 0.24 X10^3/uL; NRBC Flagged by Analyzer 0 % (0-5); Neutrophil # 3.98 X10^3/uL (2.7-7.7); Neutrophil % 66.2 % (47-70); Platelet Count 201 K/mm3 (150-450); RBC Distribution Width SD 43.1 fl (35.1-43.9); Red Blood Count 4.34 M/mm3 (4.2-5.4)
[2021-04-26 11:31] LABS: Anion Gap 7 (5-15); BUN 46 mg/dL (7-18); Calcium,Total 9.5 mg/dL (8.5-10.1); Chloride 107 mmol/L (98-107); Creatinine, Serum 1.15 mg/dL (0.55-1.02); EST Glomerular Filtration Rate 51 mL/min (>60); Est Glom Filt Rate - Afr Amer 62 mL/min (>60); Glucose 150 mg/dL (74-106); Potassium 4.1 mmol/L (3.5-5.1); Sodium Level 142 mmol/L (136-145)
[2021-04-26 11:51] LABS: Bedside Glucose 116 mg/dL (70-110)
--- NOTE | 2021-04-26 13:37 | PN.HOSP_ITS ---
Subjective Subjective Doing well, still requires only 2 L at rest and 4 L with ambulation. Unfortunately she will be able to be discharged until tomorrow secondary to no available beds at the group home. Objective Data Objective Data Vital Signs: Vital Signs Temp Pulse Resp BP Pulse Ox 97.8 F 74 20 H 100/83 H 97 04/26/21 09:30 04/26/21 13:30 04/26/21 13:30 04/26/21 09:30 04/26/21 09:30 Oxygen Flow Rate (L/min) [ 2 AMBULATING with Oxygen #1] Oxygen Flow Rate (L/min) 2 Oxygen Delivery Method Nasal Cannula Weight: 141 lb 1.533 oz Body Mass Index (BMI) 25.2 Intake & Output: Intake and Output for Last 24 Hours 04/25/21 04/26/21 04/27/21 03:59 03:59 03:59 Intake Total 701.9 / 701.9 530 / 530 110 / 110 Output Total 1130 / 1130 550 / 550 160 / 160 Balance -428.1 / -428.1 -20 / -20 -50 / -50 Lab / Micro Data Result Diagrams: 04/26/21 10:57 04/26/21 10:57 Labs: Laboratory Results - last 24 hr 04/25/21 17:00: POC Glucose 122 H 04/25/21 21:34: POC Glucose 168 H 04/26/21 06:27: POC Glucose 51 L 04/26/21 06:46: POC Glucose 57 L 04/26/21 07:31: POC Glucose 117 H 04/26/21 10:57: WBC 6.0, RBC 4.34, Hgb 11.8 L, Hct 36.8 L, MCV 84.8, MCH 27.2, MCHC 32.1, RDW Std Deviation 43.1, RDW Coeff of Carlos Enrique 14.0, Plt Count 201, MPV 10.0, Immature Gran % (Auto) 2.200 H, Neut % (Auto) 66.2, Lymph % (Auto) 26.7, [place] % (Auto) 4.0, Eos % (Auto) 0.7, Baso % (Auto) 0.2, Absolute Neuts (auto) 4.0, Absolute Lymphs (auto) 1.60, Nucleated RBC % 0 04/26/21 10:57: Sodium 142, Potassium 4.1, Chloride 107, Carbon Dioxide 28.0, Anion Gap 7, BUN 46 H, Creatinine 1.15 H, Estim Creat Clear Calc 42.50, Est GFR (MDRD) Af Amer 62, Est GFR (MDRD) Non-Af 51 L, BUN/Creatinine Ratio 40.0 H, Glucose 150 H, Calcium 9.5 04/26/21 11:42: POC Glucose 116 H Micro: Microbiology 04/21/21 08:15 Sputum, Induced/Lukens Gram Stain - Final 04/21/21 08:15 Sputum, Induced/Lukens Respiratory Culture - Final Staphylococcus aureus Sphingomonas paucimobilis 04/17/21 18:00 Blood Culture (Wb) - Anticubital Left Blood Culture - Final No growth in 5 days. 04/15/21 01:50 Blood Culture (Wb) #2 - Anticubital Right Bacteria Detection (PCR) - Final Strep not Strep pneumo 04/15/21 01:50 Blood Culture (Wb) #2 - Anticubital Right Blood Culture - Final Streptococcus mitis/ oralis 04/15/21 01:35 Blood Culture (Wb) - Anticubital Left Blood Culture - Final No growth in 5 days. 04/18/21 08:50 Urine, Random Legionella Antigen - Final 04/18/21 08:50 Urine, Random Streptococcus pneumoniae Antigen (M - Final 04/15/21 01:45 Mucosa - Nose Influenza Types A,B Direct FA (ERIK) - Final 04/15/21 01:45 Nasal Secretion SARS-CoV-2 Antigen (Rapid) - Final SARS-CoV-2 (COVID 19) Physical Exam Const alert, oriented x3 and no apparent distress General Appearance: cooperative HEENT normocephalic and moist oral mucous membranes Eyes PERRL, EOMs intact bilaterally and conjunctivae normal Neck supple and no JVD Resp normal respiratory effort, no retractions and no use of accessory muscles Auscultation: diminished lung sounds; Negative for crackles, rales, rhonchi or wheezes Cardio regular rate, regular rhythm, S1 normal heart sound, S2 normal heart sound and no murmurs GI soft to palpation, non-tender and non-distended; Negative for hepatosplenomegaly Extremity no clubbing, cyanosis or edema Skin no rashes or lesions noted Neuro no focal motor deficits and no sensory deficits noted Psych affect normal Appearance: appropriate Assessment & Plan Assessment/Plan (1) Pneumonia due to COVID-19 virus: (2) Acute respiratory failure with hypoxia: PLAN: 1. Acute hypoxic respiratory failure Is secondary to COVID-19 pneumonia strep pneumonia. Patient was transferred from regular nursing floor to the ICU due to rapidly deteriorating respiratory status. Patient apparently did not tolerate BiPAP but is okay with intubation ?04/19/2021;Patient remains on high flow oxygen via Airvo. Apparently did not tolerate BiPAP. Patient was seen in consultation by infectious disease. Baricitinib added to patient treatment regimen -04/20/2021 Patient seen remains in the ICU. Remains on Airvo with flow of 60 L/min and FiO2 of 92% in addition to 100% nonrebreather. Patient still declines BiPAP -04/21/2021;Patient was intubated due to deteriorating respiratory status Seen this a.m. remains stable on the vent. Current vent settings FiO2 of 60% PEEP of 5 on assist control pressure support -04/23/2021: Patient remains on the vent ; currently on pressure support ventilation -04/24/2021; Patient was successfully weaned off the vent this a.m.. Patient had apparently grown staph from his sputum was started on vancomycin which was discontinued today since final culture came back positive for MSSA. ?04/25/2021: Maintaining her oxygen saturations on 2 L nasal cannula after having been extubated today ?04/26/2021: Doing well, needing 4 L with ambulation to maintain her oxygen saturations. Will discharge to group home when there is a bed available 2. COVID-19 pneumonia ?Patient managed on dexamethasone and remdesivir. Patient may be a candidate for baricitinib due to her rapidly deteriorating oxygen saturation. Consult placed to ID to initiate baricitinib ?04/25/2021: She has completed Decadron and remdesivir. She is doing well on the baricitinib 3. Streptococcal pneumonia ?Patient blood cultures grew Streptococcus mitis. Ceftriaxone added to patient's therapy ?04/25/2021: This was completed on 04/23/2021, which was a 7-day course, blood cultures were likely contaminant ?04/26/2021: Resolved 4. Superimposed staphylococcal pneumonia ?Vancomycin added to patient's therapy starting 04/22/2021 -04/24/2021;Patient had apparently grown staph from his sputum was started on vancomycin which was discontinued today since final culture came back positive for MSSA. ?04/26/2021: Resolved 5. Diabetes mellitus type II -patient's oral hypoglycemics held. Placed on long acting insulin, Accu-Cheks a.c. and at bedtime and covered with sliding scale insulin 6. Hypertension - Blood pressure controlled, home medications continued with dose adjustment as needed 7. Dyslipidemia -Patient is on statin therapy, continued at home dose 8. Acute kidney injury ?Creatinine on admission was 1.76 down to 1.24. Do suspect some chronicity we will continue with monitoring -04/22/2021; kidney function remains stable. DVT: Lovenox Charges/Coding Visit Charges Inpatient E&M: 75665 Subs Hosp L2
[2021-04-26 16:40] LABS: Bedside Glucose 80 mg/dL (70-110)
[2021-04-26 22:25] LABS: Bedside Glucose 132 mg/dL (70-110)
[2021-04-27] VITALS (11 sets, daily range): BP systolic 106–139; BP diastolic 75–83; PULSE 53–110; RESP 18–26; TEMP 36.3–36.7; O2SAT 93–100
[2021-04-27 05:07] LABS: Absolute Lymphocyte Count 1.42 X10^3/uL (0.83-4.51); Absolute Neutrophil Count 4.4 X10^3/uL (2.0-7.7); Basophil# 0.02 X10^3/uL; Basophil% 0.3 % (0-1); Eosinophil# 0.04 X10^3/uL; Eosinophils% 0.6 % (0-5); Hemoglobin 11.1 g/dL (12.0-15.0); Lymphocyte # 1.42 X10^3/ul (0.83-4.51); Lymphocyte % 22.3 % (19-41); Mean Corp Hgb Conc 30.8 g/dL (32-36); Mean Corpuscular Hgb 26.5 pg (27.0-32.0); Mean Corpuscular Volume 85.9 fL (81-99); Mean Platelet Vol. 10.2 fl (6.2-12.0); Monocyte# 0.36 X10^3/uL; Monocyte% 5.7 % (0-10); NRBC Flagged by Analyzer 0 % (0-5); Neutrophil # 4.42 X10^3/uL (2.7-7.7); Neutrophil % 69.4 % (47-70); Platelet Count 193 K/mm3 (150-450); RBC Distribution Width CV 13.7 % (11.6-14.6); RBC Distribution Width SD 42.6 fl (35.1-43.9); Red Blood Count 4.19 M/mm3 (4.2-5.4); White Blood Count 6.4 K/mm3 (4.4-11.0)
[2021-04-27 05:29] LABS: Anion Gap 6 (5-15); BUN 33 mg/dL (7-18); BUN/Creat Ratio 38.1 RATIO (10-20); Calcium,Total 9.3 mg/dL (8.5-10.1); Chloride 108 mmol/L (98-107); Creatinine, Serum 0.87 mg/dL (0.55-1.02); EST Glomerular Filtration Rate 71 mL/min (>60); Est Glom Filt Rate - Afr Amer 85 mL/min (>60); Estimated Creatinine Clearance 56.17 ml/min; Glucose 48 mg/dL (74-106); Potassium 4.5 mmol/L (3.5-5.1); Sodium Level 141 mmol/L (136-145)
[2021-04-27] MEDS: Menthol/Lanolin/Calamine/Znox 113 GM Tube 1 APPLIC TOPICAL ×3 (05:52→21:13)
--- NOTE | 2021-04-27 06:33 | NURSING ---
Addendum entered by Lelo Garibay 04/27/21 07:00: Recheck BS 47 given some more juice, cookie and ice cream. Pt alert & orient and talkative. Will continue to monitor blood sugar. Original Note: Patient conscious this morning blood sugar 37 given orange juice to drink will recheck.
[2021-04-27 07:05] LABS: Bedside Glucose 37 mg/dL (70-110)
[2021-04-27 07:05] LABS: Bedside Glucose 47 mg/dL (70-110)
[2021-04-27 07:05] LABS: Bedside Glucose 38 mg/dL (70-110)
[2021-04-27] MEDS: Albuterol 2.5 MG/3 ML VIAL.NEB. INHALATION ×3 (07:41→19:30)
[2021-04-27] MEDS: Enoxaparin 30 MG/0.3 ML Syringe SC ×2 (07:50→21:14)
[2021-04-27 08:05] LABS: Bedside Glucose 90 mg/dL (70-110)
[2021-04-27] MEDS: Insulin Lispro 100 UNIT/ML INSULN.PEN SC ×3 (11:57→21:13)
--- NOTE | 2021-04-27 12:03 | CASEMGMT ---
MAKENNA did get a message from Tari at [facility] and they can take patient, but they do not have any beds today. The patient that was to leave today is not leaving now. They plan on placing patient on their non-COVID unit as patient is out of her quarantine days. MAKENNA sent a message to Tari letting her know [facility] doctors have patient in quarantine until 04-28. Delaney James MSW FARHAN
[2021-04-27 12:05] LABS: Bedside Glucose 370 mg/dL (70-110)
--- NOTE | 2021-04-27 13:54 | PCM.PN.HOSP ---
Subjective Subjective Doing well, no issues overnight. She is now maintaining her oxygen saturations on room air. Objective Data Objective Data Vital Signs: Vital Signs Temp Pulse Resp BP Pulse Ox 97.3 F L 66 20 H 106/75 100 04/27/21 07:56 04/27/21 13:32 04/27/21 13:32 04/27/21 07:56 04/27/21 09:10 Oxygen Flow Rate (L/min) [ 2 AMBULATING with Oxygen #1] Oxygen Flow Rate (L/min) 2 Oxygen Delivery Method Room Air Weight: 138 lb 10.732 oz Body Mass Index (BMI) 25.2 Intake & Output: Intake and Output for Last 24 Hours 04/26/21 04/27/21 04/28/21 03:59 03:59 03:59 Intake Total 530 / 530 590 / 590 350 / 350 Output Total 550 / 550 610 / 610 100 / 100 Balance -20 / -20 -20 / -20 250 / 250 Lab / Micro Data Result Diagrams: 04/27/21 05:00 04/27/21 05:00 Labs: Laboratory Results - last 24 hr 04/26/21 16:17: POC Glucose 80 04/26/21 21:59: POC Glucose 132 H 04/27/21 05:00: WBC 6.4, RBC 4.19 L, Hgb 11.1 L, Hct 36.0 L, MCV 85.9, MCH 26.5 L, MCHC 30.8 L, RDW Std Deviation 42.6, RDW Coeff of Carlos Enrique 13.7, Plt Count 193, MPV 10.2, Immature Gran % (Auto) 1.700 H, Neut % (Auto) 69.4, Lymph % (Auto) 22.3, [place] % (Auto) 5.7, Eos % (Auto) 0.6, Baso % (Auto) 0.3, Absolute Neuts (auto) 4.4, Absolute Lymphs (auto) 1.42, Nucleated RBC % 0 04/27/21 05:00: Sodium 141, Potassium 4.5, Chloride 108 H, Carbon Dioxide 27.0, Anion Gap 6, BUN 33 H, Creatinine 0.87, Estim Creat Clear Calc 56.17, Est GFR (MDRD) Af Amer 85, Est GFR (MDRD) Non-Af 71, BUN/Creatinine Ratio 38.1 H, Glucose 48 L, Calcium 9.3 04/27/21 06:29: POC Glucose 37 L* 04/27/21 06:42: POC Glucose 38 L* 04/27/21 06:59: POC Glucose 47 L 04/27/21 07:45: POC Glucose 90 04/27/21 11:56: POC Glucose 370 H Micro: Microbiology 04/21/21 08:15 Sputum, Induced/Lukens Gram Stain - Final 04/21/21 08:15 Sputum, Induced/Lukens Respiratory Culture - Final Staphylococcus aureus Sphingomonas paucimobilis 04/17/21 18:00 Blood Culture (Wb) - Anticubital Left Blood Culture - Final No growth in 5 days. 04/15/21 01:50 Blood Culture (Wb) #2 - Anticubital Right Bacteria Detection (PCR) - Final Strep not Strep pneumo 04/15/21 01:50 Blood Culture (Wb) #2 - Anticubital Right Blood Culture - Final Streptococcus mitis/ oralis 04/15/21 01:35 Blood Culture (Wb) - Anticubital Left Blood Culture - Final No growth in 5 days. 04/18/21 08:50 Urine, Random Legionella Antigen - Final 04/18/21 08:50 Urine, Random Streptococcus pneumoniae Antigen (M - Final 04/15/21 01:45 Mucosa - Nose Influenza Types A,B Direct FA (ERIK) - Final 04/15/21 01:45 Nasal Secretion SARS-CoV-2 Antigen (Rapid) - Final SARS-CoV-2 (COVID 19) Physical Exam Const alert, oriented x3 and no apparent distress General Appearance: cooperative HEENT normocephalic and moist oral mucous membranes Eyes PERRL, EOMs intact bilaterally and conjunctivae normal Neck supple and no JVD Resp normal respiratory effort, no retractions and no use of accessory muscles Auscultation: diminished lung sounds; Negative for crackles, rales, rhonchi or wheezes Cardio regular rate, regular rhythm, S1 normal heart sound, S2 normal heart sound and no murmurs GI soft to palpation, non-tender and non-distended; Negative for hepatosplenomegaly Extremity no clubbing, cyanosis or edema Skin no rashes or lesions noted Neuro no focal motor deficits and no sensory deficits noted Psych affect normal Appearance: appropriate Assessment & Plan Assessment/Plan (1) Pneumonia due to COVID-19 virus: (2) Acute respiratory failure with hypoxia: PLAN: 1. Acute hypoxic respiratory failure Is secondary to COVID-19 pneumonia strep pneumonia. Patient was transferred from regular nursing floor to the ICU due to rapidly deteriorating respiratory status. Patient apparently did not tolerate BiPAP but is okay with intubation ?04/19/2021;Patient remains on high flow oxygen via Airvo. Apparently did not tolerate BiPAP. Patient was seen in consultation by infectious disease. Baricitinib added to patient treatment regimen -04/20/2021 Patient seen remains in the ICU. Remains on Airvo with flow of 60 L/min and FiO2 of 92% in addition to 100% nonrebreather. Patient still declines BiPAP -04/21/2021;Patient was intubated due to deteriorating respiratory status Seen this a.m. remains stable on the vent. Current vent settings FiO2 of 60% PEEP of 5 on assist control pressure support -04/23/2021: Patient remains on the vent ; currently on pressure support ventilation -04/24/2021; Patient was successfully weaned off the vent this a.m.. Patient had apparently grown staph from his sputum was started on vancomycin which was discontinued today since final culture came back positive for MSSA. ?04/25/2021: Maintaining her oxygen saturations on 2 L nasal cannula after having been extubated today ?04/26/2021: Doing well, needing 4 L with ambulation to maintain her oxygen saturations. Will discharge to senior care when there is a bed available ?04/27/2021: Doing well, she is currently on room air at rest 2. COVID-19 pneumonia ?Patient managed on dexamethasone and remdesivir. Patient may be a candidate for baricitinib due to her rapidly deteriorating oxygen saturation. Consult placed to ID to initiate baricitinib ?04/25/2021: She has completed Decadron and remdesivir. She is doing well on the baricitinib 3. Streptococcal pneumonia ?Patient blood cultures grew Streptococcus mitis. Ceftriaxone added to patient's therapy ?04/25/2021: This was completed on 04/23/2021, which was a 7-day course, blood cultures were likely contaminant ?04/26/2021: Resolved 4. Superimposed staphylococcal pneumonia ?Vancomycin added to patient's therapy starting 04/22/2021 -04/24/2021;Patient had apparently grown staph from his sputum was started on vancomycin which was discontinued today since final culture came back positive for MSSA. ?04/26/2021: Resolved 5. Diabetes mellitus type II -patient's oral hypoglycemics held. Placed on long acting insulin, Accu-Cheks a.c. and at bedtime and covered with sliding scale insulin 6. Hypertension - Blood pressure controlled, home medications continued with dose adjustment as needed 7. Dyslipidemia -Patient is on statin therapy, continued at home dose 8. Acute kidney injury ?Creatinine on admission was 1.76 down to 1.24. Do suspect some chronicity we will continue with monitoring -04/22/2021; kidney function remains stable. 04/27/2021: Resolved DVT: Lovenox Charges/Coding Visit Charges Inpatient E&M: 72457 Subs Hosp L2
[2021-04-27 16:35] LABS: Bedside Glucose 225 mg/dL (70-110)
--- NOTE | 2021-04-27 16:37 | CASEMGMT ---
MAKENNA received an e-mail from Tari at [facility] and [facility]'s ecologist and oracle database administrator have declined patient. MAKENNA spoke with patient about this and she asked SW to call Suni her niece. MAKENNA called Suni and let her know above. SW asked if she knew where else she would be okay with patient going. She asked if patient could go home. MAKENNA asked if someone would be with her 27/11 and she said someone could be with her all the time. MAKENNA told her that MAKENNA will check with therapy and the physician tomorrow to see if that would be a safe plan. In the meantime she has no preference for another facility. Suni would like for patient to be somewhere nearby. MAKENNA told her SW will check back tomorrow. MAKENNA was going to send a referral to [facility] but they are full. MAKENNA will send referral to [facility]. Delaney James MSW FARHAN
--- NOTE | 2021-04-27 17:08 | CASEMGMT ---
Referral was sent to [facility]. MAKENNA also called Mary at [facility] and left her a voice mail. Delaney James MSW FARHAN
[2021-04-27 21:26] LABS: Bedside Glucose 207 mg/dL (70-110)
[2021-04-28] VITALS (11 sets, daily range): BP systolic 114–125; BP diastolic 73–88; PULSE 68–101; RESP 16–22; TEMP 36.4–36.9; O2SAT 94–98
[2021-04-28] MEDS: Menthol/Lanolin/Calamine/Znox 113 GM Tube 1 APPLIC TOPICAL ×2 (06:26→13:11)
[2021-04-28 07:21] LABS: Bedside Glucose 44 mg/dL (70-110)
[2021-04-28 07:21] LABS: Bedside Glucose 41 mg/dL (70-110)
[2021-04-28] MEDS: Albuterol 2.5 MG/3 ML VIAL.NEB. INHALATION ×2 (07:24→13:19)
[2021-04-28 08:51] LABS: Bedside Glucose 61 mg/dL (70-110)
[2021-04-28 08:51] LABS: Bedside Glucose 74 mg/dL (70-110)
[2021-04-28] MEDS: Enoxaparin 30 MG/0.3 ML Syringe SC (09:45)
--- NOTE | 2021-04-28 10:48 | CASEMGMT ---
Addendum entered by Delaney James 04/28/21 11:02: SW spoke with patient and she is in agreement with going to [facility]. Delaney REAL Addendum entered by Delaney James 04/28/21 10:55: SW called Suni patient's niece. She is in agreement with patient going to [facility] since [facility] is full. She did think about it some more and it would probably be best if she went somewhere for a little bit. SW will also talk with patient. Plan: d/c to [facility] under skilled level of care on a convalescent stay. Delaney REAL Original Note: MAKENNA received a voice mail from Mary at [facility] and they can accept patient. Mary asked if patient does come to them she will need to bring her Trulicity from home. MAKENNA will talk with patient and her niece. Delaney REAL
[2021-04-28 11:20] LABS: Bedside Glucose 101 mg/dL (70-110)
--- NOTE | 2021-04-28 13:45 | PCM.TXEXTCAR ---
Diet 04/24/21 09:32 Diet: Carbohydrate Controlled Is pt able to select menu?: Yes Routine Orders/Code Status Routine Lab Work: CBC and BMP Code Status: Full Code Wound(s) left cheek: Wound Type: Abrasion R upper lip: Wound Type: scabbed Therapies Physical Therapy: Eval and Treat Occupational Therapy: Eval and Treat Problem/Diagnosis (1) Pneumonia due to COVID-19 virus: Status: Acute (2) Acute respiratory failure with hypoxia: Status: Acute Allergies/Procedures Done in Hospital Allergies No Known Allergies Allergy (Verified 04/15/21 00:45) Procedures: None Type of Care/Length of Stay Estimated LOS: Convalescent Care Less Than 30 days Type of Care Needed: Skilled Rehab Potential: Good Prognosis: Good Additional Orders/Day of Discharge Day of Discharge: 04/28/21 Dietary and Speech Recommendations Dietitian Recommendations/Changes: Will d/c EN orders as pt is extubated. Recommend 1600 calorie controlled/consistent CHO diet, texture/consistency modifications per DIRECTOR OF PARKS AND RECREATION as indicated. Will monitor need for ONS as PO intake is established. Discharge Plan Admission Admit Date/Time: 04/15/21 04:32 Attending Provider: Chidi Duval Primary Care Provider: Akila Banerjee Consulting Providers: Ajit Bell ; Shane Nava ; Tc Nation ; Saritha Rivers TREE SURGEON HELPER Discharge Orders/Prescriptions Prescriptions: Continued simvastatin 20 mg Tablet 20 mg PO QHS RF: 0 losartan 25 mg Tablet 25 mg PO DAILY RF: 0 montelukast 10 mg Tablet 10 mg PO QHS RF: 0 albuterol sulfate 90 mcg/actuation Hfa Aerosol Inhaler 1 puff INHALATION Q6H PRN (Reason: Wheezing) RF: 0 fluticasone propionate 50 mcg/actuation [place],Suspension 1 spray INTRANASAL DAILY RF: 0 metformin 500 mg Tablet Extended Release 24 Hr 1,000 mg PO BID RF: 0 cholecalciferol (vitamin D3) [Vitamin D3] 25 mcg (1,000 unit) Capsule 25 mcg PO DAILY RF: 0 Dulera 200-5 mcg/actuation Hfa Aerosol Inhaler 2 puff INHALATION BID RF: 0 loratadine 10 mg Capsule 10 mg PO DAILY RF: 0 Tresiba U-100 Insulin 100 unit/mL Solution 54 unit SUBCUT DAILY RF: 0 Trulicity 3 mg/0.5 mL Pen Injector 3 mg SUBCUT WE RF: 0 Referrals / Follow Up: Akila Banerjee MD [Primary Care Provider] - Within 1 Month Disposition Disposition (needs filled in before D/C Order can be placed): [facility]
--- NOTE | 2021-04-28 13:55 | PCM.DC.SUM ---
Providers Date of Admission: 04/15/21 Primary Care Physician: Dr. Akila Banerjee MD Consultations 04/17/21 13:00 Consult: [employer] A[employer] / Pulmonary Medicine Routine Consulting Provider: Pulmonary Medicine sallie Stearns Reason for Consult: resp failure EMERGENT Consult: No Notified: Yes Date Notified: 04/17/21 Time Notified: 10:01 Method of Notification: Verbal 04/18/21 07:01 Consult: Infectious Disease Routine Consulting Provider: Ajit Bell Reason for Consult: COVID EMERGENT Consult: No Notified: Yes Date Notified: 04/18/21 Time Notified: 09:25 Method of Notification: Answering Service Reason For Visit: ACUTE HYPOEMIC RESPIRATORY FAILURE Diagnosis Discharge Diagnosis (1) Pneumonia due to COVID-19 virus: Status: Acute Code(s): U07.1 - COVID-19; J12.82 - Pneumonia due to coronavirus disease 2019 (2) Acute respiratory failure with hypoxia: Status: Acute Code(s): J96.01 - Acute respiratory failure with hypoxia Medications at Discharge Home Medications Dulera 2 puff INHALATION BID 04/15/21 Tresiba U-100 Insulin 54 unit SUBCUT DAILY 04/15/21 Trulicity 3 mg SUBCUT WE 04/15/21 albuterol sulfate 1 puff INHALATION Q6H PRN 04/15/21 cholecalciferol (vitamin D3) [Vitamin D3] 25 mcg PO DAILY 04/15/21 fluticasone propionate 1 spray INTRANASAL DAILY 04/15/21 loratadine 10 mg PO DAILY 04/15/21 losartan 25 mg PO DAILY 04/15/21 metformin 1,000 mg PO BID 04/15/21 montelukast 10 mg PO QHS 04/15/21 simvastatin 20 mg PO QHS 04/15/21 Hospital Course Operations None Procedures None Summary of Care Provided Minutes Spent on Discharge: 35 Hospital Course: Per HPI: JUSTIN MILLER, is a 60 F with a significant history of diabetes mellitus and hypertension who presents to emergency department with 1 week history of progressively worsening shortness of breath. Reportedly family tried to get patient's of the bed and she had incontinence of stool. Associated with symptoms is a dry cough. Patient tested positive for COVID-19 virus at the ED. Hospital Course: 1. Acute hypoxic respiratory failure Is secondary to COVID-19 pneumonia strep pneumonia. Patient was transferred from regular nursing floor to the ICU due to rapidly deteriorating respiratory status. Patient apparently did not tolerate BiPAP but is okay with intubation ?04/19/2021;Patient remains on high flow oxygen via Airvo. Apparently did not tolerate BiPAP. Patient was seen in consultation by infectious disease. Baricitinib added to patient treatment regimen -04/20/2021 Patient seen remains in the ICU. Remains on Airvo with flow of 60 L/min and FiO2 of 92% in addition to 100% nonrebreather. Patient still declines BiPAP -04/21/2021;Patient was intubated due to deteriorating respiratory status Seen this a.m. remains stable on the vent. Current vent settings FiO2 of 60% PEEP of 5 on assist control pressure support -04/23/2021: Patient remains on the vent ; currently on pressure support ventilation -04/24/2021; Patient was successfully weaned off the vent this a.m.. Patient had apparently grown staph from his sputum was started on vancomycin which was discontinued today since final culture came back positive for MSSA. ?04/25/2021: Maintaining her oxygen saturations on 2 L nasal cannula after having been extubated today ?04/26/2021: Doing well, needing 4 L with ambulation to maintain her oxygen saturations. Will discharge to [facility] when there is a bed available ?04/27/2021: Doing well, she is currently on room air at rest ?04/28/2021: Hypoxia has resolved as has her COVID-19 pneumonia and her streptococcal pneumonia. She has completed quarantine and is medically stable for discharge. Her blood sugars had been low but she was receiving double the amount of her normal insulin secondary to her being on Decadron. She is also eating a much more controlled diabetic diet. Will resume her home diabetic medications and do recommend close monitoring and adjustment at the [facility]. I discussed with her the plan for discharge to SNF today and she expressed understanding of the risk and benefits of discharge and would like to be discharged today. 2. COVID-19 pneumonia ?Patient managed on dexamethasone and remdesivir. Patient may be a candidate for baricitinib due to her rapidly deteriorating oxygen saturation. Consult placed to ID to initiate baricitinib ?04/25/2021: She has completed Decadron and remdesivir. She is doing well on the baricitinib 3. Streptococcal pneumonia ?Patient blood cultures grew Streptococcus mitis. Ceftriaxone added to patient's therapy ?04/25/2021: This was completed on 04/23/2021, which was a 7-day course, blood cultures were likely contaminant ?04/26/2021: Resolved 4. Superimposed staphylococcal pneumonia ?Vancomycin added to patient's therapy starting 04/22/2021 -04/24/2021;Patient had apparently grown staph from his sputum was started on vancomycin which was discontinued today since final culture came back positive for MSSA. ?04/26/2021: Resolved 5. Diabetes mellitus type II -patient's oral hypoglycemics held. Placed on long acting insulin, Accu-Cheks a.c. and at bedtime and covered with sliding scale insulin 6. Hypertension - Blood pressure controlled, home medications continued with dose adjustment as needed 7. Dyslipidemia -Patient is on statin therapy, continued at home dose 8. Acute kidney injury ?Creatinine on admission was 1.76 down to 1.24. Do suspect some chronicity we will continue with monitoring -04/22/2021; kidney function remains stable. 04/27/2021: Resolved Physical Exam Const alert, oriented x3 and no apparent distress General Appearance: cooperative HEENT normocephalic and moist oral mucous membranes Eyes PERRL, EOMs intact bilaterally and conjunctivae normal Neck supple and no JVD Resp normal respiratory effort, no retractions and no use of accessory muscles Auscultation: diminished lung sounds; Negative for crackles, rales, rhonchi or wheezes Cardio regular rate, regular rhythm, S1 normal heart sound, S2 normal heart sound and no murmurs GI soft to palpation, non-tender and non-distended; Negative for hepatosplenomegaly Extremity no clubbing, cyanosis or edema Skin no rashes or lesions noted Neuro no focal motor deficits and no sensory deficits noted Psych affect normal Appearance: appropriate Weight / BMI Weight Weight: 138 lb 7.205 oz Body Mass Index (BMI) 25.2 ABG / Lab / Microbiology Data Result Diagrams: 04/27/21 05:00 04/27/21 05:00 Laboratory: Laboratory Results - last 24 hr 04/27/21 16:24: POC Glucose 225 H 04/27/21 21:11: POC Glucose 207 H 04/28/21 06:20: POC Glucose 41 L* 04/28/21 06:45: POC Glucose 44 L* 04/28/21 07:02: POC Glucose 61 L 04/28/21 07:17: POC Glucose 74 04/28/21 11:13: POC Glucose 101 Microbiology: Microbiology 04/21/21 08:15 Sputum, Induced/Lukens Gram Stain - Final 04/21/21 08:15 Sputum, Induced/Lukens Respiratory Culture - Final Staphylococcus aureus Sphingomonas paucimobilis 04/17/21 18:00 Blood Culture (Wb) - Anticubital Left Blood Culture - Final No growth in 5 days. 04/15/21 01:50 Blood Culture (Wb) #2 - Anticubital Right Bacteria Detection (PCR) - Final Strep not Strep pneumo 04/15/21 01:50 Blood Culture (Wb) #2 - Anticubital Right Blood Culture - Final Streptococcus mitis/ oralis 04/15/21 01:35 Blood Culture (Wb) - Anticubital Left Blood Culture - Final No growth in 5 days. 04/18/21 08:50 Urine, Random Legionella Antigen - Final 04/18/21 08:50 Urine, Random Streptococcus pneumoniae Antigen (M - Final 04/15/21 01:45 Mucosa - Nose Influenza Types A,B Direct FA (ERIK) - Final 04/15/21 01:45 Nasal Secretion SARS-CoV-2 Antigen (Rapid) - Final SARS-CoV-2 (COVID 19) Meaningful Use Info Meaningful Use Diagnoses (Choose all that apply): None applicable Discharge Plan Admission Admit Date/Time: 04/15/21 04:32 Attending Provider: Chidi Duval Primary Care Provider: Akila Banerjee Consulting Providers: Ajit Bell ; Shane Nava ; Tc Nation ; Saritha Rivers CONTINUITY COORDINATOR Discharge Orders/Prescriptions Prescriptions: Continued simvastatin 20 mg Tablet 20 mg PO QHS RF: 0 losartan 25 mg Tablet 25 mg PO DAILY RF: 0 montelukast 10 mg Tablet 10 mg PO QHS RF: 0 albuterol sulfate 90 mcg/actuation Hfa Aerosol Inhaler 1 puff INHALATION Q6H PRN (Reason: Wheezing) RF: 0 fluticasone propionate 50 mcg/actuation [place],Suspension 1 spray INTRANASAL DAILY RF: 0 metformin 500 mg Tablet Extended Release 24 Hr 1,000 mg PO BID RF: 0 cholecalciferol (vitamin D3) [Vitamin D3] 25 mcg (1,000 unit) Capsule 25 mcg PO DAILY RF: 0 Dulera 200-5 mcg/actuation Hfa Aerosol Inhaler 2 puff INHALATION BID RF: 0 loratadine 10 mg Capsule 10 mg PO DAILY RF: 0 Tresiba U-100 Insulin 100 unit/mL Solution 54 unit SUBCUT DAILY RF: 0 Trulicity 3 mg/0.5 mL Pen Injector 3 mg SUBCUT WE RF: 0 Referrals / Follow Up: Akila Banerjee MD [Primary Care Provider] - Within 1 Month Disposition Disposition (needs filled in before D/C Order can be placed): Senior Living Facility Charges/Coding Visit Charges Inpatient E&M: 34750 Disch Hosp
--- NOTE | 2021-04-28 15:25 | CASEMGMT ---
Received orders for discharge. MAKENNA arranged for patient to get picked up at 5p via [facility] van. SW faxed orders and steel pickler time to [facility]. MAKENNA notified principal secretary, patient, and Suni of steel pickler time. SW completed a convalescent on [facility]. All in agreement with discharge plan. Plan: d/c to [facility] under skilled level of care on a convalescent stay. [facility] transported via [facility] van. Delaney REAL
--- NOTE | 2021-04-28 15:45 | NURSING ---
Report called to MARJORIE White at 1539 at the reading.
[2021-04-28 16:11] LABS: Bedside Glucose 72 mg/dL (70-110)
--- NOTE | 2021-04-28 17:11 | CASEMGMT ---
MAKENNA called Suni and reminded her to take patient's Trulicity to [facility]. She confirmed she will do this. Delaney James [employer]
== END 2021-04-28 19:04 | DRG 137 ==
LOC: ED 03:48 → PCU 05:30 → ICU 04-17 12:48 → PCU 04-25 10:21
PROVIDERS: Internal Medicine; Internal Medicine Critical Care Medicine; Admitting Provider Hospitalist; Emergency Provider Emergency Medicine; PCP Internal Medicine; Visit Provider Family Medicine
DX: U07.1 COVID-19 (principal); J12.82 Pneumonia due to coronavirus disease 2019; J96.01 Acute respiratory failure with hypoxia; J15.4 Pneumonia due to other streptococci; J15.20 Pneumonia due to staphylococcus, unspecified; E87.2 Acidosis; E11.65 Type 2 diabetes mellitus with hyperglycemia; R19.7 Diarrhea, unspecified; E86.0 Dehydration; N17.9 Acute kidney failure, unspecified; E78.5 Hyperlipidemia, unspecified; E11.9 Type 2 diabetes mellitus without complications; I10 Essential (primary) hypertension; Z79.84 Long term (current) use of oral hypoglycemic drugs; Z79.899 Other long term (current) drug therapy; Z87.891 Personal history of nicotine dependence
CPT/HCPCS: 31500; 31720; 36415; 36600; 70450; 71045; 71275; 80048; 80053; 82550; 82803; 82962; 83036; 83605; 83735; 83880; 84075; 84145; 84478; 84484; 85025; 85027; 85379; 86140; 87040; 87070; 87077; 87149; 87186; 87205; 87426; 87449; 87804; 93005; 94002; 94003; 94640; 94660; 94668; 94762; 97110; 97116; 97162; 97163; 97166; 97530; 97535; 97802; 97803; 99251; 99285; J7030; J7040; J7050; Q9967; A4216; G0463; J0330; J0696; J1940; J3010